=== PATIENT | female | born 1945 | race Caucasian/White ===

== ENCOUNTER 2025-02-24 13:54 | Emergency (ER) | payer MEDICARE, OTHER, SELFPAY ==
--- NOTE | ~2025-02-24 | XR_ITS ---
EXAMINATION: XR chest 2V DATE: 02/24/2025 15:03 INDICATION: 2 weeks of cough. TECHNIQUE: PA and lateral views of the chest were obtained. COMPARISON: None FINDINGS: Hyperexpansion lungs with increased retrosternal clear space consistent with reported history of COPD . Mild biapical pleural-parenchymal scarring. Mild elevation of the left hemidiaphragm with linear op acities at the left lower lung zone and would favor atelectasis over pneumonia. No pleural effusion, pulmonary edema or pneumothorax. Heart size is normal. 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 IMPRESSION: 1. Linear opacities at the left lower lung zone with some elevation of left hemidiaphragm and would f avor atelectasis over pneumonia. 2. Hyperexpansion of the lungs consistent with reported history of COPD. Reviewed, dictated and finalized at location A. IMPRESSION: 1. Linear opacities at the left lower lung zone with some elevation of left hem idiaphragm and would favor atelectasis over pneumonia. 2. Hyperexpansion of the lungs consistent with reported history of COPD.
[2025-02-24 14:09] VITALS: BP 143/67; PULSE 68; RESP 16; TEMP 36.4; O2SAT 96
--- OUTSIDE RECORDS SUMMARY | 2025-02-24 14:10 | XMS_ITS ---
Author Organization [facility] - Address [address] [facility] [place] [address] Care Team Providers Care Pneumatic Hoist Operator Name Role Phone Gareth Gusman Primary Care Provider Unavailabl LUCA Yao Unavailable [phone] REASON FOR VISIT rx Medications Medication SIG (Take, Route, Frequency, Duration) Notes Start Date End Date Status Eliquis 5 MG 1 tablet Orally Twice a day for 90 days Active Encounters Encounter Location Date Provider Diagnosis [address] [address] 01/12/2025 LUCA FERNÁNDEZ Unspecified atrial fibrillation I48.91 Assessments Encounter Date Diagnosis (ICD Code) Assessment Notes Treatment Notes Treatment Clinical Notes Section Notes 01/12/2025 Unspecified atrial fibrillation (ICD-10 - I48.91) Plan Of Treatment Medication Medication Name Sig Start Date Stop Date Notes Eliquis 5 MG 1 tablet Orally Twice a day for 90 days Next Appt Details Provider Name:[facility], 04/21/2025 03:00:00 PM, [address], [address], [place], [address], Progress Notes * Milvia GRIJALVA GDOB:1945 ( 79 yo F)Acc No.[id number]:01/12/2025 Patient: Kari Milvia GASCA :1945 A ge:79 Y S ex:Female Address:[address] [place] [address], [address], [place] [address] * Refills Refill Eliquis Tablet, 5 MG, Orally, 180, 1 tablet, Twice a day, 90 days, Refills=3 * true * Date: Generated for [address]/Андрей/Christiano on: 0 02/24/2025 03:10 PM EDT
--- OUTSIDE RECORDS SUMMARY | 2025-02-24 14:10 | XMS_ITS ---
Author Organization [facility] Address [address] [place] [address] Care Team Providers Care Appraiser Land Name Role Phone MONTOYA, QUYNH Unavailable [phone] REASON FOR VISIT 2 WK RIGHT 4TH INGROWN Medications Medication SIG (Take, Route, Frequency, Duration) Notes Start Date End Date Status Trelegy Ellipta 100-62.5-25 MCG/ACT 1 puff Inhalation Once a day 08/10/2024 Active Rosuvastatin Calcium 10 MG Oral for 90 Days Active Telmisartan 20 MG Oral for 90 Days Active Eliquis 5 MG Oral for 30 Days Active Pantoprazole Sodium 40 MG Oral for 90 Days Active Levothyroxine Sodium 100 MCG Oral for 90 Days Active Acyclovir 400 MG Oral for 90 Days Active Flecainide Acetate 100 MG Oral for 90 Days Active Social History Sex Assigned At : Social History Observation Description Sex Assigned At Female Vital Signs Height 65 in 09/14/2024 Weight 132 lbs 09/14/2024 BMI 21.96 kg/m2 09/14/2024 Encounters Encounter Location Date Provider Diagnosis [facility] [place] [address] 09/14/2024 QUYNH MONTOYA Ingrowing nail L60.0 Assessments Encounter Date Diagnosis (ICD Code) Assessment Notes Treatment Notes Treatment Clinical Notes Section Notes 09/14/2024 Ingrowing nail (ICD-10 - L60.0) 1. Advised patient the hard skin on the bottom will eventually resolve, may apply lotion if desired. 2. Patient told to leave open to the air as much as possible 3. Patient told to allow scabs to come off on their own 4. Expected time to complete healing explained Plan Of Treatment Treatment Notes Assessment Notes Ingrowing nail 1. Advised patient the hard skin on the bottom will eventually resolve, may apply lotion if desired. 2. Patient told to leave open to the air as much as possible 3. Patient told to allow scabs to come off on their own 4. Expected time to complete healing explained Next Appt Details Follow Up: prn, Reason: Progress Notes * Milvia GRIJALVA GDOB:1945 ( 79 yo F)Acc No.[id number]:09/14/2024 Progress Notes Patient: Milvia CAMPO Provider: Sherry Montoya :1945 A ge:79 Y S ex:Female Date:09/14/2024 Phone: Address:[address] [place] [address], [address], [id number] Subjective: * Chief Complaints: * 2 WK RIGHT 4TH INGROWN * Medical History: * Surgical History: * Hospitalization/Major Diagno stic Procedure: * Medications: T akingFlecainide Acetate 100 MG Tablet Oral Acyclovir 400 MG Tablet Oral Levothyroxine Sodium 100 MCG Tablet Oral Telmisartan 20 MG Tablet Oral Rosuvastatin Calcium 10 MG Tablet Oral Pantoprazole Sodium 40 MG Tablet Delayed Release Oral Eliquis 5 MG Tablet Oral Trelegy Ellipta 100-62.5-25 MCG/ACT Aerosol Powder Breath Activated 1 puff Inhalation Once a day Taking Flecainide Acetate 100 MG Tablet Oral Taking Acyclovir 400 MG Tablet Oral Taking Levothyroxine Sodium 100 MCG Tablet Oral Taking Telmisartan 20 MG Tablet Oral Taking Rosuvastatin Calcium 10 MG Tablet Oral Taking Pantoprazole Sodium 40 MG Tablet Delayed Release Oral Taking Eliquis 5 MG Tablet Oral Taking Trelegy Ellipta 100-62.5-25 MCG/ACT Aerosol Powder Breath Activated 1 puff Inhalation Once a day Objective: * Vitals: W t:132lbs, BMI:21.96Index, Ht: 65 in, Ht-cm: 165.1 cm, Wt-k.87 kg. * Examination: V ascular: DORSALIS PEDIS PULSE: 2 /4. POSTERIOR TIBIAL PULSE: 2 /4. CAPILLARY REFILL: i nstantaneous. TEMPERATURE GRADIENT: w ithin normal limits. EDEMA: n one. I ngrown Nail: INPSECTION: t he right 4th toe lateral border of the nail is eschared, no redness or infection. Plantar distal portion of the toe appears to have developed some pooling of blood causing t he skin to harden and get dark. Was painful , no longer.. ? Assessment: * Assessment: 1. Rudy callaway nail - L60.0 (Primary) Plan: * Treatment: * Procedure Codes: * Follow Up: p rn * * Sign off status: Completed true * Provider: Sherry Montoya Date: 11/14/[address]/Андрей/Amiraitting on: 0 02/24/2025 03:10 PM EDT History and Physical Notes * Examination Category Sub-Category Detail Notes Category Not es Ingrown Nail INPSECTION: the right 4th to e lateral border of the nail is eschared, no redness or infection. Plantar distal portion of the toe appears to have developed some pooling of blood causing the skin to harden and get dark. Was painful , no longer. Vascular DORSALIS PEDIS PULSE: 2/4 EDEMA: none CAPILLARY REFILL: instantaneous TEMPERATURE GRADIENT: within normal limi ts POSTERIOR TIBIAL PULSE: 2/4
--- OUTSIDE RECORDS SUMMARY | 2025-02-24 14:11 | XMS_ITS | Clinical Summary ---
Author Organization [facility] Address [address] [place] [address] Care Team Providers Care Paint Coating Machine Operator Name Role Phone Gareth Gusman MD Primary Care Provider [phone] Allergies Active Allergy Reactions Criticality Noted Date Comments Cefazolin 05/28/2024 Cefprozil 05/28/2024 Levofloxacin 05/28/2024 Medications flecainide (TAMBOCOR) 100 MG tablet Take 1 tablet by mouth in the morning and 1 tablet before bedtime. Active rosuvastatin (CRESTOR) 10 MG tablet Take 1 tablet by mouth in the morning. Active telmisartan (MICARDIS) 20 MG tablet Take 1 tablet by mouth in the morning. Active sertraline (ZOLOFT) 50 MG tablet Take 0.5 tablets by mouth in the morning. Active montelukast (SINGULAIR) 10 mg tablet Take 1 tablet by mouth in the morning. Active levothyroxine 100 MCG Oral tablet Take 1 tablet by mouth in the morning. Active pantoprazole (PROTONIX) 40 MG tablet Take 1 tablet by mouth in the morning. Active guaiFENesin (MUCINEX) 600 mg 12 hr tablet Take 1 tablet by mouth in the morning and 1 tablet before bedtime. Active apixaban (ELIQUIS) 5 mg tablet Take 1 tablet by mouth in the morning and 1 tablet before bedtime. Active diazePAM (VALIUM) 2 MG tablet Take 2.5 mg by mouth every 8 (eight) hours as needed for Anxiety. Active Social History Tobacco Use Types Packs/Day Years Used Date Smoking Tobacco: Former Cigarettes Smokeless Tobacco: Never Tobacco Cessation:Counseling Given: Not Answered Alcohol Use Standard Drinks/Week Comments Never 0 (1 standard drink = 0.6 oz pur e alcohol) Comments Unknown Sex and Gender Information Value Date Recorded Sex Assigned at Not on file Legal Sex Female 6:57 PM EDT Gender Identity Not on file Sexual Orientation Not on file Last Filed Vital Signs Vital Sign Reading Time Taken Comments Blood Pressure 126/60 05/28/2024 1:26 PM EDT Pulse 56 05/28/2024 1:26 PM EDT Temperature 37.1 C (98.7 F) 05/28/2024 9:00 AM EDT Respiratory Rate 30 05/28/2024 1:26 PM EDT Oxygen Saturation 96% 05/28/2024 1:26 PM EDT Inhaled Oxygen Concentration - - Weight 59 kg (130 lb) 05/28/2024 9:00 AM EDT Height 165.1 cm (5' 5 ) 05/28/2024 9:00 AM EDT Body Mass Index 21.63 05/28/2024 9:00 AM EDT Plan of Treatment Not on file Insurance [address] [place] [address] MEDICARE [facility] Care Teams Paint Coating Machine Operator Relationship Specialty Start Date End Date Gareth Gusman MD [address] [facility] [place] [address] PCP - General Internal Medicine 05/28/24
--- OUTSIDE RECORDS SUMMARY | 2025-02-24 14:11 | XMS_ITS ---
Author Organization [facility] Address [address] [place], [place] [id number] Care Team Providers Care Event Security Officer Name Role Phone Gareth Gusman MD Primary Care Provider TAMY Robles [phone] Results Component Value Reference Range Notes [email or web address] Reviewed date:02/06/2024 08:56:06 AM Interpretation: Performing Lab: Notes/Report: Encounters Encounter Location Date Provider Diagnosis [facility] [address] [place], [place] [id number] 01/31/2024 TAMY VELA Encounter for screening mammogram for malignant neoplasm of breast Z12.31 Assessments Encounter Date Diagnosis (ICD Code) Assessment Notes Treatment Notes Treatment Clinical Notes Section Notes 01/31/2024 Encounter for screening mammogram for malignant neoplasm of breast (ICD-10 - Z12.31) Plan Of Treatment Next Appt Details Follow Up: 1 Year, Reason: Provider Name:TAMY PEREZ, 03/03/2025 01:30:00 PM, [address] [place] [address] Drive, [address], [place], [place], [id number], Progress Notes * Milvia GRIJALVA GDOB:1945 ( 79 yo F)Acc No.[id number]:01/31/2024 Patient: Milvia CAMPO Provider: Andrea Vela MD :1945 A ge:79 Y S ex:Female Date:01/31/2024 Address:[address], [id number] Pcp:Gareth Gusman MD Subjective: * Chief Complaints: Objective: Assessment: * Assessment: 1. E ncounter for screening mammogram for malignant neoplasm of breast - Z12.31 (Primary) Plan: * Treatment: * Procedure Codes: 7 7067 Mammography, UnderBreast, 20186 BREAST TOMOSYNTHESIS BI * Follow Up: 1 Year * Images: * Sign off status: Completed true * Provider: Andrea Vela MD Date: 0 01/31/[address]/Андрей/Amiraitting on: 0 02/24/2025 03:10 PM EDT
--- OUTSIDE RECORDS SUMMARY | 2025-02-24 14:11 | XMS_ITS ---
Author Organization [facility] Address [address] [place] [address] Care Team Providers Care Safety Compliance Specialist Name Role Phone Gareth Gusman Primary Care Provider Allergies Allergen (clinical drug ingredient) Drug/Non Drug Allergy documented on EMR Reaction Allergy Type Onset Date Status amoxicillin / clavulanate Augmentin Unknown Drug Allergy 02/12/2024 Active cephalexin Cephalexin Unknown Drug Allergy Activ e Levaquin Unknown Drug Allergy Active Reason For Referral Reason tremors Diagnosis 1 Tremor (R25.1) Referral Organization [facility] Referring Provider First Name Gareth Referring Provider Last Name Naseem Referring Provider Speciality Internal M edicine Referred Provider NEUROLOG[facility], [facility] S Referred Provider Specialty Neurology General Notes Dana Shepard 01/12/2025 04:34:25 PM > ref faxed. Referral Priority Routine REASON FOR VISIT involuntarily, intermittent quivering of chin Medications Medication SIG (Take, Route, Frequency, Duration) Notes Start Date End Date Status Ipratropium-Albuterol 0.5-2.5 (3) MG/3ML USE 1 VIAL VIA NEBULIZER EVERY 4 HOURS NEEDED Active Albuterol Sulfate HFA 108 (90 Base) MCG/ACT 2 puffs as needed Inhalation every 4 hrs 01/30/2017 Active Trelegy Ellipta 100-62.5-25 MCG/INH 1 puff Inhalation Once a day Active Flecainide Acetate 100 MG 1 tablet Orall y Twice a day Active Eliquis 2.5 MG as directed Orally T wice a day Active Calcium 1200 4604-9206 MG-UNIT 1 tablet with a meal Orally Once a day Active Protonix 40 MG 1 tablet Orally Once a day 06/23/2019 Active Mucinex 600 MG 1 tablet as needed Orally every 12 hrs Active Vitamin D3 50 MCG (1999 UT) 1 tablet Ora lly Once a day Active Telmisartan 20 MG 1 tablet orally once a day Active Sertraline HCl 50 MG 1 tablet Orally Onc e a day Active Levothyroxine Sodium 100 MCG 1 tablet on an empty stomach every morning Orally Once a day Active Rosuvastatin Calcium 10 MG 1 tablet Oral ly Once a day Active Acyclovir 400 MG 1 tablet Orally Twic e a day Active Social History Tobacco Use: Social History Observation Description Date Details (start date - stop date) Never Smoker NA - NA TOBACCO USE? Question Answer Notes Are you an other tobacco user? 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 ; Benign essential hypertension I10 ; Paroxysmal atrial fibrillation I48.0 ; Mixed hyperlipidemia E78.2 ; Tremor R25.1 ; Chronic obstructive pulmonary disease, unspecified COPD type J44.9 ; 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 Stable. Continue with current management. 01/12/2025 Benign essential hypertension (ICD-10 - I10) 2 g sodium diet suggested. Goal blood pressure 120/80. Avoid hypotension. Complications of uncontrolled hypertension discussed with patient to include CKD, CVA, CAD. Advised to take medications regularly. Monitor blood pressure at home. 01/12/2025 Paroxysmal atrial fibrillation (ICD-10 - I48.0) Well-controlled. Stable. Continue with current management. 01/12/2025 Mixed hyperlipidemia (ICD-10 - E78.2) You can lower your LDL, or bad, cholesterol by avoiding red meat, butter, fried foods, cheese, and other foods that have a lot of saturated fat. You can lower triglycerides by avoiding sugary foods, fried foods, and excess alcohol. If you have excess weight, it can help to lose weight. Your doctor or nurse can help you do this in a healthy way. Try to get regular physical activity. Even gentle forms of exercise, like walking, are good for your health. Even if these steps don't change your cholesterol very much, they can improve your health in many other ways. 01/12/2025 Tremor (ICD-10 - R25.1) 01/12/2025 Chronic obstructive pulmonary disease, unspecified COPD type (ICD-10 - J44.9) Well-controlled. Stable. Continue with current management. 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 Stable. Continue with current management. 01/12/2025 Acquired hypothyroidism (ICD-10 - E03.9) Well-controlled. Stable. Continue with current management. 01/12/2025 Depressive disorder in remission (ICD-10 - F32.A) No SI or HI symptoms. If you ever feel like you might hurt yourself or someone else helps available. In the [place] contact [employer] suicide and crisis [employer]. To speak to someone call or text [employer]. To talk to someone online go to www.[employer].o rg/chat. Call us urgently. Or call an ambulance. Or go to the nearest emergency room. Counseling may be helpful. Continue to take your medication. Limit access to items that may cause harm such as guns or knives. 01/12/2025 BMI 20.0-20.9, adult (ICD-10 - Z68.20) 01/12/2025 Other Diet myths and facts material was printed Plan Of Treatment Medication Medication Name Sig Start Date Stop Date Notes Ipratropium-Albuterol 0.5-2. 5 (3) MG/3ML USE 1 VIAL VIA NEBULIZER EVERY 4 HOURS NEEDED Albuterol Sulfate HFA 108 (9 0 Base) MCG/ACT 2 puffs as needed Inhalation every 4 hrs 01/30/2017 Trelegy Ellipta 100-62.5-25 MCG/INH 1 puff Inhalation Once a day Flecainide Acetate 100 MG 1 tablet Orally Twice a day Eliquis 2.5 MG as directed Orally T wice a day Calcium 1200 9343-1074 MG-UNIT 1 tablet with a meal Orally Once a day Protonix 40 MG 1 tablet Orally Once a day 06/23/2019 Mucinex 600 MG 1 tablet as needed O rally every 12 hrs Vitamin D3 50 MCG (2000 UT) 1 tablet Orally Once a day Telmisartan 20 MG 1 tablet orally once a day Sertraline HCl 50 MG 1 tablet Orally Once a day Levothyroxine Sodium 100 MCG 1 tablet on an empty stomach every morning Orally Once a day Rosuvastatin Calcium 10 MG 1 tablet Orally Once a day Acyclovir 400 MG 1 tablet Orally Twice a day Treatment Notes Assessment Notes Benign essential hypertension 2 g sodium diet suggested. Goal blood pressure 120/80. Avoid hypotension. Complications of uncontrolled hypertension discussed with patient to include CKD, CVA, CAD. Advised to take medications regularly. Monitor blood pressure at home. Paroxysmal atrial fibrillation Well-cont rolled. Stable. Continue with current management. Mixed hyperlipidemia You can lower your LDL, or bad, cholesterol by avoiding red meat, butter, fried foods, cheese, and other foods that have a lot of saturated fat. You can lower triglycerides by avoiding sugary foods, fried foods, and excess alcohol. If you have excess weight, it can help to lose weight. Your doctor or nurse can help you do this in a healthy way. Try to get regular physical activity. Even gentle forms of exercise, like walking, are good for your health. Even if these steps don't change your cholesterol very much, they can improve your health in many other ways. Chronic obstructive pulmonar y disease, unspecified COPD type Well-controlled. Stable. Continue with current management. Chronic mucocutaneous infect ion due to herpes simplex virus (HSV) Well-controlled. Stable. Continue with current management. Acquired hypothyroidism Well-controlled. Stable. Continue with current management. Depressive disorder in remission No SI o r HI symptoms. If you ever feel like you might hurt yourself or someone else helps available. In the [place] contact [employer] suicide and crisis [employer]. To speak to someone call or text [employer]. To talk to someone online go to www.[employer].org/chat. Call us urgently. Or call an ambulance. Or go to the nearest emergency room. Counseling may be helpful. Continue to take your medication. Limit access to items that may cause harm such as guns or knives. Other Diet myths and facts material was printed Pending Test Test Name Order Date CBC WITH PLT 01/12/2025 MAGNESIUM 01/12/2025 TSH 01/12/2025 COMPREHENSIVE METABOLIC PANEL (CMP) 12/20 LIPID PANEL 01/12/2025 Referrals Referral Date Details 01/12/2025 01/12/2025, tremors, [facility] Next Appt Details Follow Up: prn, Reason: Provider Name:Anil Vargas, 03/05/2025 01:40:00 PM, [address] [place], [address], Progress Notes * Milvia GRIJALVA GDOB:1945 ( 79 yo F)Acc No.[id number]:01/12/2025 Progress Notes Patient: Milvia CAMPO Provider: Chandan Gusman MD :1945 A ge:79 Y S ex:Female Date:01/12/2025 Address:[address] [place] [address], [address], [phone] Subjective: * Chief Complaints: * I nvoluntarily, intermittent quivering of chin * HPI: F FUP VISIT: Patient with involuntary quivering tremors of the lower lip and chin. T his is intermittent progressive. T he patient has no gait abnormality. N o tremors. N o rigidity no cogwheeling. P ositive family history of Parkinson's disease 2 siblings. N o falls. C oncerned about Parkinson's disease. M ost likely has some form of movement disorder. N o evidence for any titubation. R outine labs to be checked to include thyroid. W ill refer to neurology. N o indication for treatment at this point. Her past medical history significant for COPD, paroxysmal AF. C OPD, hypothyroidism HLD depression HTN. S he has an upcoming appointment next month. R outine labs to be ordered will add TSH and electrolytes. H er symptoms are not affecting her ADLs and IADLs. N ot affecting her function. * ROS: R OS neg except as noted in HPI. * Medical History: * Surgical History: H YSTERECTOMY 1975TONSILECTOMY 1958HEMORRHOID 2012FACE LIFT NECK LIFT * Hospitalization/Major Diagno stic Procedure: M EDICATIONS CHANGES 04/2018AFIB 10/2017COPD, PNEUMOTHORAX 11/2020 * Family History: F ather: . M other: , diagnosed with Unspecified heart disease. S iblings: diagnosed with Other malignant neoplasm of unspecified site. 7 brother(s) , 2 sister(s) . 1 son(s) , 1 daughter(s) . . BREAST CANCER- SISTER. * Social History: T obacco Use: T OBACCO USE? A re you a tobacco user? N o A re you an other tobacco user? N o Tobacco Control (Standard) T obacco use: N onsmomaryam N ON SMOKER. * Medications: T akingMucinex 600 MG Tablet Extended Release 12 Hour 1 tablet as needed Orally every 12 hrs Vitamin D3 50 MCG (2000 UT) Tablet 1 tablet Orally Once a day Calcium 1200 1338-1650 MG-UNIT Tablet Chewable 1 tablet with a meal Orally Once a day Albuterol Sulfate HFA 108 (90 Base) MCG/ACT Aerosol Solution 2 puffs as needed Inhalation every 4 hrs Ipratropium-Albuterol 0.5-2.5 (3) MG/3ML Solution USE 1 VIAL VIA NEBULIZER EVERY 4 HOURS NEEDED Flecainide Acetate 100 MG Tablet 1 tablet Orally Twice a day Eliquis 2.5 MG Tablet as directed Orally Twice a day Trelegy Ellipta 100-62.5-25 MCG/INH Aerosol Powder Breath Activated 1 puff Inhalation Once a day Acyclovir 400 MG Tablet 1 tablet Orally Twice a day Levothyroxine Sodium 100 MCG Tablet 1 tablet on an empty stomach every morning Orally Once a day Rosuvastatin Calcium 10 MG Tablet 1 tablet Orally Once a day Sertraline HCl 50 MG Tablet 1 tablet Orally Once a day Telmisartan 20 MG Tablet 1 tablet orally once a day Protonix 40 MG Tablet Delayed Release 1 tablet Orally Once a day Medication List reviewed and reconciled with the patientTaking Mucinex 600 MG Tablet Extended Release 12 Hour 1 tablet as needed Orally every 12 hrs Taking Vitamin D3 50 MCG (2000 UT) Tablet 1 tablet Orally Once a day Taking Calcium 1200 2520-1538 MG-UNIT Tablet Chewable 1 tablet with a meal Orally Once a day Taking Albuterol Sulfate HFA 108 (90 Base) MCG/ACT Aerosol Solution 2 puffs as needed Inhalation every 4 hrs Taking Ipratropium-Albuterol 0.5-2.5 (3) MG/3ML Solution USE 1 VIAL VIA NEBULIZER EVERY 4 HOURS NEEDED Taking Flecainide Acetate 100 MG Tablet 1 tablet Orally Twice a day Taking Eliquis 2.5 MG Tablet as directed Orally Twice a day Taking Trelegy Ellipta 100-62.5-25 MCG/INH Aerosol Powder Breath Activated 1 puff Inhalation Once a day Taking Acyclovir 400 MG Tablet 1 tablet Orally Twice a day Taking Levothyroxine Sodium 100 MCG Tablet 1 tablet on an empty stomach every morning Orally Once a day Taking Rosuvastatin Calcium 10 MG Tablet 1 tablet Orally Once a day Taking Sertraline HCl 50 MG Tablet 1 tablet Orally Once a day Taking Telmisartan 20 MG Tablet 1 tablet orally once a day Taking Protonix 40 MG Tablet Delayed Release 1 tablet Orally Once a day Medication List reviewed and reconciled with the patient * Allergies: L evaquinCephalexinAugmentin: Allergy - Onset Date 02/12/2024no[Allergies Verified] Objective: * Vitals: T emp:97.6F, HR:68/min, BP:112/70mm Hg, Ht: 66 in, Wt:124lbs, BMI:20.01Index, RR:17/min, Ht-cm: 167.64 cm, Wt-k.25 kg. MG. * Examination: G eneral Examination: GENERAL APPEARANCE: i n no acute distress, well developed, well nourished. HEAD: n ormocephalic, atraumatic. EYES: p upils equal, round, reactive to light and accommodation. EARS: n ormal. ORAL CAVITY: m ucosa moist. THROAT: c lear. NECK/THYROID: n boubacar supple, full range of motion, no cervical lymphadenopathy. SKIN: n o suspicious lesions, warm and dry. HEART: n o murmurs, regular rate and rhythm, S1, S2 normal.? LUNGS: c lear to auscultation bilaterally. ABDOMEN: n ormal, bowel sounds present, soft, nontender, nondistended. EXTREMITIES: n o clubbing, cyanosis, or edema. NEUROLOGIC: n onfocal, motor strength normal upper and lower extremities,sensory exam intact No rigidity no cogwheeling gait is normal. . F ine tremors with noted on her lower lip and chin. Assessment: * Assessment: 1. B enign essential hypertension - I10 (Primary) 2 . C OPD (chronic obstructive pulmonary disease) with chronic bronchitis - J44.9 3 . P aroxysmal atrial fibrillation - I48.0 4 . M ixed hyperlipidemia - E78.2 5 . T remor - R25.1 6 . C hronic obstructive pulmonary disease, unspecified COPD type - J44.9 7 . C hronic mucocutaneous infection due to herpes simplex virus (HSV) - B00.9 8 . A cquired hypothyroidism - E03.9 9 . D epressive disorder in remission - F32.A 1 0. B IN 20.0-20.9, adult - Z68.20 ? Plan: * Treatment: 2. C OPD (chronic obstructive pulmonary disease) with chronic bronchitis Continue Ipratropium-Albuterol Solution, 0.5-2.5 (3) MG/3ML, USE 1 VIAL VIA NEBULIZER EVERY 4 HOURS NEEDED. L AB: CBC WITH PLT L AB: MAGNESIUM L AB: TSH L AB: COMPREHENSIVE METABOLIC PANEL (CMP) L AB: LIPID PANEL Clinical Notes: Well-controlled. Stable. Continue with current management. 3. P aroxysmal atrial fibrillation Continue Flecainide Acetate Tablet, 100 MG, 1 tablet, Orally, Twice a day; C ontinue Eliquis Tablet, 2.5 MG, as directed, Orally, Twice a day. L AB: CBC WITH PLT L AB: MAGNESIUM L AB: TSH L AB: COMPREHENSIVE METABOLIC PANEL (CMP) L AB: LIPID PANEL Notes: Well-controlled. Stable. Continue with current management. 4. M ixed hyperlipidemia Continue Rosuvastatin Calcium Tablet, 10 MG, 1 tablet, Orally, Once a day. L AB: CBC WITH PLT L AB: MAGNESIUM L AB: TSH L AB: COMPREHENSIVE METABOLIC PANEL (CMP) L AB: LIPID PANEL Notes: You can lower your LDL, or bad, cholesterol by avoiding red meat, butter, fried foods, cheese, and other foods that have a lot of saturated fat. You can lower triglycerides by avoiding sugary foods, fried foods, and excess alcohol. If you have excess weight, it can help to lose weight. Your doctor or nurse can help you do this in a healthy way. Try to get regular physical activity. Even gentle forms of exercise, like walking, are good for your health. Even if these steps don't change your cholesterol very much, they can improve your health in many other ways. 5. T remor L AB: CBC WITH PLT L AB: MAGNESIUM L AB: TSH L AB: COMPREHENSIVE METABOLIC PANEL (CMP) L AB: LIPID PANEL Referral To:[facility] Neurology Reason:tremors 6. C hronic obstructive pulmonary disease, unspecified COPD type Continue Trelegy Ellipta Aerosol Powder Breath Activated, 100-62.5-25 MCG/INH, 1 puff, Inhalation, Once a day. L AB: CBC WITH PLT L AB: MAGNESIUM L AB: TSH L AB: COMPREHENSIVE METABOLIC PANEL (CMP) L AB: LIPID PANEL Notes: Well-controlled. Stable. Continue with current management. 7. C hronic mucocutaneous infection due to herpes simplex virus (HSV) Continue Acyclovir Tablet, 400 MG, 1 tablet, Orally, Twice a day. L AB: CBC WITH PLT L AB: MAGNESIUM L AB: TSH L AB: COMPREHENSIVE METABOLIC PANEL (CMP) L AB: LIPID PANEL Notes: Well-controlled. Stable. Continue with current management. 8. A cquired hypothyroidism Continue Levothyroxine Sodium Tablet, 100 MCG, 1 tablet on an empty stomach every morning, Orally, Once a day. L AB: CBC WITH PLT L AB: MAGNESIUM L AB: TSH L AB: COMPREHENSIVE METABOLIC PANEL (CMP) L AB: LIPID PANEL Notes: Well-controlled. Stable. Continue with current management. 9. D epressive disorder in remission Continue Sertraline HCl Tablet, 50 MG, 1 tablet, Orally, Once a day. L AB: CBC WITH PLT L AB: MAGNESIUM L AB: TSH L AB: COMPREHENSIVE METABOLIC PANEL (CMP) L AB: LIPID PANEL Notes: No SI or HI symptoms. If you ever feel like you might hurt yourself or someone else helps available. In the [place] contact [employer] suicide and crisis [employer]. To speak to someone call or text [employer]. To talk to someone online go to www.[employer].org/chat. Call us urgently. Or call an ambulance. Or go to the nearest emergency room. Counseling may be helpful. Continue to take your medication. Limit access to items that may cause harm such as guns or knives. 10. O thers Continue Mucinex Tablet Extended Release 12 Hour, 600 MG, 1 tablet as needed, Orally, every 12 hrs;?Continue Vitamin D3 Tablet, 50 MCG (2000 UT), 1 tablet, Orally, Once a day; C ontinue Calcium 1200 Tablet Chewable, 8314-5099 MG-UNIT, 1 tablet with a meal, Orally, Once a day; C ontinue Albuterol Sulfate HFA Aerosol Solution, 108 (90 Base) MCG/ACT, 2 puffs as needed, Inhalation, every 4 hrs; C ontinue Protonix Tablet Delayed Release, 40 MG, 1 tablet, Orally, Once a day. ? Notes: Diet myths and facts material was printed * Procedure Codes: 3 074F SYST BP LT 130 MM [id number] DIAST BP < 80 MM [id number] BP SYSTOLIC < 140 DIASTOLIC < [id number] MOST RECENT SYSTOLIC BP < 140MM [id number] MOST RECENT DIASTOLIC BP < 90MM [id number] PT CUR STATIN USR/RCVD ORD STATN [id number] DOC PT ON STATN MED/DOC VALID [id number] STATIN THERAPY/CURRENTLY [id number] MED LIST DOCD IN [id number] RVW MEDS BY RX/DR IN [id number] BODY MASS INDEX DOCD * Preventive Medicine: AAP Screening: F ALLS: Screening for Fall Risk Assessment Performed: y es Date: 0 01/12/2025 Have you had two or more falls in the past year? N o Have you had any falls with injury in the past year? N o Counseling: F all Risk Screening Fall Risk Assessment: N o falls in the past year C are goal follow-up plan: BMI management provided N o S MOKING: Patient is a nonsmoker 0 01/12/2025 * Follow Up: p rn * Images: * . This office note may have dictated by [employer]el[employer] software. Sign off status: Completed true * Provider: Chandan Gusman MD Date: 0 01/12/2025 Generated for Jayloni yenifer/Farameshg/eTransmitting on: 0 02/24/2025 03:11 PM EDT History and Physical Notes * HPI (History of Present Illness) Category Sub-Category Detail Notes Category Not es FFUP VISIT Patient with involuntary quivering tremors of the lower lip and chin. This is intermittent progressive. The patient has no gait abnormality. No tremors. No rigidity no cogwheeling. Positive family history of Parkinson's disease 2 siblings. No falls. Concerned about Parkinson's disease. Most likely has some form of movement disorder. No evidence for any titubation. Routine labs to be checked to include thyroid. Will refer to neurology. No indication for treatment at this point. Her past medical history significant for COPD, paroxysmal AF. COPD, hypothyroidism HLD depression HTN. She has an upcoming appointment next month. Routine labs to be ordered will add TSH and electrolytes. Her symptoms are not affecting her ADLs and IADLs. Not affecting her function. Examination Category Sub-Category Detail Notes Category Not es General Examination GENERAL APPEARANCE: in no ac [place] distress, well developed, well nourished Fine tremors with noted on her lower lip and chin. HEAD: normocephalic, atrau matic EYES: pupils equal, round, reactive to light and accommodation EARS: normal THROAT: clear NECK/THYROID: neck supple, full ra nge of motion, no cervical lymphadenopathy HEART: no murmurs, regular rate and rhythm, S1, S2 normal LUNGS: clear to auscultatio n bilaterally ABDOMEN: normal, bowel sounds present, soft, nontender, nondistended NEUROLOGIC: nonfocal, motor stre ngth normal upper and lower extremities, sensory exam intact No rigidity no cogwheeling gait is normal. SKIN: no suspicious lesion s, warm and dry EXTREMITIES: no clubbing, cyanosi s, or edema ORAL CAVITY: mucosa moist Consultation Request Notes Referral Date Referring Provider Referred Provider Not es 01/12/2025 Gareth Gusman [facility] trem ors
--- OUTSIDE RECORDS SUMMARY | 2025-02-24 14:11 | XMS_ITS ---
Author Organization [facility] Address [address] [place] [address] Care Team Providers Care Switch Engineer Name Role Phone Gareth Gusman Primary Care Provider Unavailabl LUCA Yao Unavailable [phone] Medications Medication SIG (Take, Route, Frequency, Duration) Notes Start Date End Date Status Eliquis 5 MG 1 tablet Orally Twice a day for 90 days Active Encounters Encounter Location Date Provider Diagnosis [facility] [address] [place] [address] 01/06/2025 LUCA FERNÁNDEZ Unspecified atrial fibrillation I48.91 Assessments Encounter Date Diagnosis (ICD Code) Assessment Notes Treatment Notes Treatment Clinical Notes Section Notes 01/06/2025 Unspecified atrial fibrillation (ICD-10 - I48.91) Plan Of Treatment Medication Medication Name Sig Start Date Stop Date Notes Eliquis 5 MG 1 tablet Orally Twice a day for 90 days Next Appt Details Provider Name:LUCA CARD[place] [facility] [place] 03:00:00 PM, [address], [address], [place], [address], Progress Notes * Milvia GRIJALVA GDOB:1945 ( 79 yo F)Acc No.[id number]:01/06/2025 Patient: Kari GASCAMilvia Ritesh :1945 A ge:79 Y S ex:Female Address:[address], [address], [place] [address] * Refills Refill Eliquis Tablet, 5 MG, Orally, 180, 1 tablet, Twice a day, 90 days, Refills=3 * true * Date: Generated for [address]/Андрей/Christiano on: 0 02/24/2025 03:10 PM EDT
--- OUTSIDE RECORDS SUMMARY | 2025-02-24 14:11 | XMS_ITS ---
Author Organization [facility] Address [address] [place] [address] Care Team Providers Care Combined Rail Operator Name Role Phone Gareth Gusman Primary Care Provider REASON FOR VISIT flu done 07/28/2024 Encounters Encounter Location Date Provider Diagnosis [facility] [place] [address] [place] [address] 01/12/2025 Gareth Gusman Plan Of Treatment Next Appt Details Provider Name:Anil Vargas, 03/05/2025 01:40:00 PM, [address], [address], Progress Notes * MARVINMilvia Mendez GDOB:1945 ( 79 yo F)Acc No.[id number]:01/12/2025 Patient: Milvia CAMPO :1945 A ge:79 Y S ex:Female Address:[address] [place] [address], [address], [place], [address] * true * Date: Generated for Jayloni yenifer/Nataliog/eTransmitting on: 0 02/24/2025 03:11 PM EDT
--- OUTSIDE RECORDS SUMMARY | 2025-02-24 14:11 | XMS_ITS ---
Author Organization [facility] Address [address] [place] [address] Care Team Providers Care Molecular Biology Director Name Role Phone Gareth Gusman Primary Care Provider LUCA Butler [phone] Allergies Allergen (clinical drug ingredient) Drug/Non Drug [...] MG 1 tablet Orall y every 12 hrs for 30 days Active Encounters Encounter Location Date Provider Diagnosis [facility] [address] [place] [address] 12/09/2024 LUCA ESCOBEDO Primary hypertension I10 ; [...] MG 1 tablet Orall y every 12 hrs for 30 days Treatment Notes Assessment Notes Paroxysmal A-fib Cont flecainide and eliquis. In NSR today. Precordial chest pain Negative cath Next Appt Details Provider Name:LUCA CARDONA [facility], 04/21/2025 03:00:00 PM, [address], [place], [address], Progress Notes * Milvia GRIJALVA GDOB:1945 ( 80 yo F)Acc No.[id number]:12/09/2024 Progress Notes Patient: Milvia CAMPO Provider: Urban Escobedo MD, [facility] :1945 A ge:79 Y S ex:Female Date:12/09/2024 Address:[address] [place] [address], [address], [id number] Pcp:Gareth Gusman Subjective: * Chief Complaints: * [...] aroxysmal A-fib - I48.0 6 . B NM 21.0-21.9, adult - Z68.21 7 . L [...] Electronic signature of JUST IN Samantha ESCOBEDO, [id number] on 02/24/2025 at 03:11 PM EDT Sign off status: Pending * Provider: Urban Escobedo MD, [facility] Date: 0 12/09/[address]/Андрей/Christiano on: 0 02/24/2025 03:11 PM EDT
--- OUTSIDE RECORDS SUMMARY | 2025-02-24 14:12 | XMS_ITS ---
Author Organization [facility] Address [address] [place] [address] Care Team Providers Care Technology Internship Name Role Phone QUYNH MONTOYA Unavailable [phone] REASON FOR VISIT 2 WK RIGHT 4TH INGROWN Social History Sex Assigned At : Social History Observation Description Sex Assigned At Female Encounters Encounter Location Date Provider Diagnosis [facility] [address] [place] [address] 09/07/2024 QUYNH MONTOYA Plan Of Treatment No Information Progress Notes * Milvia GRIJALVA GDOB:1945 ( 80 yo F)Acc No.[id number]:09/07/2024 Progress Notes Patient: Milvia CAMPO Provider: Sherry Montoya :1945 A ge:79 Y S ex:Female Date:09/07/2024 Phone: Address:[address] [place] [address], [address], [place], [id number] Subjective: * Chief Complaints: * 1 . 2 WK RIGHT 4TH INGROWN. * Medical History: Objective: * Vitals: Assessment: Plan: * Treatment: * * Electronic signature of KIERRA MONTOYA DPM on 02/24/2025 at 03:12 PM EDT Sign off status: Pending * Provider: Sherry Montoya Date: 11/07/[address]/Андрей/Christiano on: 0 02/24/2025 03:12 PM EDT
--- OUTSIDE RECORDS SUMMARY | 2025-02-24 14:12 | XMS_ITS | Clinical Summary ---
Author Organization [facility] Address [address] [place] [phone] Phone Care Team Providers Care Film Critic Name Role Phone Unavailable Primary Care Provider Unavailabl e Allergies Active Allergy Reactions Criticality Noted Date Comments Levofloxacin Other (see Comments) 05/10/2019 Pet[place]iae Medications albuterol (PROVENTIL, VENTOLIN) (2.5 MG/3ML) 0.083% Nebulizer Soln 2.5 mg by Nebulization route. Activ e albuterol 108 (90 Base) MCG/ACT Aerosol Solution take 2 Puffs by inhalation every 4 hours as needed. Active acyclovir (ZOVIRAX) 400 MG Tablet 04/10/20 19 Active cetirizine (ZYRTEC) 10 MG Tablet TAKE 1 TABLET BY MOUTH ONCE DAILY. 2 04/27/20 19 Active diclofenac sodium (VOLTAREN) 1 % Gel APPLY 2-4 GRAMS TO AFFECTED AREA 4 TIMES DAILY DIRECTED BY PHYSICIAN. 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 Active Active Problems No known active problems Social History Tobacco Use Types Packs/Day Years Used Date Smoking Tobacco: Former Cigarettes Q uit: 10/21/2003 Smokeless Tobacco: Never Comments No Sex and Gender Information Value Date Recorded Sex Assigned at Not on file Legal Sex Female 2:11 PM CDT Gender Identity Not on file Sexual Orientation Not on file Last Filed Vital Signs Vital Sign Reading Time Taken Comments Blood Pressure 120/54 05/10/2019 2:45 PM CDT Pulse 65 05/10/2019 2:45 PM CDT Temperature 36.7 C (98 F) 05/10/2019 2:45 PM CDT Respiratory Rate - - Oxygen Saturation 95% 05/10/2019 2:45 PM CDT Inhaled Oxygen Concentration - - Weight 62.6 kg (138 lb) 05/10/2019 2:45 PM CDT Height 165.1 cm (5' 5 ) 05/10/2019 2:45 PM CDT Body Mass Index 22.96 05/10/2019 2:45 PM CDT Plan of Treatment Health Maintenance Due Date Last Done Comments DEXA Bone Density 1945 Hepatitis C Virus (HCV) Screening 1945 TdaP Immunization 1945 Pneumococcal Immunization (5 0+ years) (1 of 1 - PCV) 01/18/1994 Zoster Immunization (1 of 2) 01/18/1994 Respiratory Syncytial Virus (RSV) Immunization (Adult) (1 - 1-dose 75+ series) 01/18/2019 Influenza Immunization (#1) 2024 SARS-COV-2 Immunization (1 - 2023-25 season) 2024 Hepatitis B Immunization Aged Out No longer eligible based on patient's age to complete this topic Meningococcal Immunization (ACWY) Aged Out No longer eligible based on patient's age to complete this topic Rotavirus Immunization Aged Out No lo nger eligible based on patient's age to complete this topic Insurance MEDICARE
--- OUTSIDE RECORDS SUMMARY | 2025-02-24 14:12 | XMS_ITS ---
Author Organization [facility] Address [address] [place], [place] [id number] Care Team Providers Care Horizontal Boring Mill Set Up Operator Name Role Phone Gareth Gusman MD Primary Care Provider TAMY Robles [phone] Encounters Encounter Location Date Provider Diagnosis [facility] [address] [place], [place] [id number] 02/05/2025 TAMY VELA Plan Of Treatment Next Appt Details Provider Name:TAMY PEREZ, 03/03/2025 01:30:00 PM, [address], [address], [place], [place], [id number], Progress Notes * Milvia GRIJALVA GDOB:1945 ( 80 yo F)Acc No.[id number]:02/05/2025 Patient: Milvia CAMPO Provider: Andrea Vela MD :1945 A ge:80 Y S ex:Female Date:02/05/2025 Address:[address] [place] [address], [place], [id number] Pcp:Gareth Gusman MD Subjective: * Chief Complaints: Objective: Assessment: Plan: * Treatment: * Images: * Electronic signature of NANDO VELA MD on 02/24/2025 at 03:12 PM EDT Sign off status: Pending * Provider: Andrea Vela MD Date: 02/05/2025 Generated for Jayloni yenifer/Андрей/eTransmitting on: 0 02/24/2025 03:12 PM EDT
--- OUTSIDE RECORDS SUMMARY | 2025-02-24 14:12 | XMS_ITS | Patient Health Record ---
Author Organization [facility] Address [address] [place] [address] Care Team Providers Care Supervisor Particleboard Name Role Phone QUYNH LUCIA Unavailable [phone] Allergies Allergen (clinical drug ingredient) Drug/Non Drug Allergy documented on EMR Reaction Allergy Type Onset Date Status amoxicillin / clavulanate augmentin (uncoded) severe eye itchingand redness Allergy Active cefprozil cefprozil (uncoded) mima tightnes and wheezing Allergy Active levaquin (uncoded) pettechia Allergy A ctive Reason For Referral No Information Medications Medication SIG (Take, Route, Frequency, Duration) [...] Description Sex Assigned At Female Vital Signs Heart Rate 58 /min 08/24/2024 Blood pressure diastolic 78 mm Hg 08/24/2024 Height 65 in 09/14/2024 Blood pressure systolic 134 mm Hg 08/24/2024 Weight 132 lbs 09/14/2024 BMI 21.96 kg/m2 09/14/2024 Encounters Encounter Location Date Provider Diagnosis [facility] [address] [place] [address] 08/10/2024 QUYNH LUCIA Ingrowing nail L60.0 [facility] [address] [place] [address] 08/24/2024 QUYNH LUCIA Ingrowing nail L60.0 [facility] [address] [place] [address] 09/14/2024 QUYNH LUCIA Ingrowing nail L60.0 Assessments Encounter Date Diagnosis (ICD Code) Assessment Notes Treatment Notes Treatment Clinical Notes Section Notes 08/10/2024 Ingrowing nail (ICD-10 - L60.0) We discussed the findings and treatment options. Patient wants to proceed with surgical correction. We will contact her Pulpit Operator ( Jamie Escobedo) to determine his requirement re: Laz) Will schedule after that 08/24/2024 Ingrowing nail (ICD-10 - L60.0) We discussed the findings and treatment options. Patient wants to proceed with surgical correction. See operative report 09/14/2024 Ingrowing nail (ICD-10 - L60.0) 1. Advised patient the hard skin on the bottom will eventually resolve, may apply lotion if desired. 2. Patient told to leave open to the air as much as possible 3. Patient told to allow scabs to come off on their own 4. Expected time to complete healing explained Plan Of Treatment No Information Insurance Providers Payer Name Payer Address Payer Phone Subscriber Number Group Number Insured Name Patient Relationship to Insured Coverage Start Date Coverage End Date [employer] [facility] [place] [facility] [address] [place] [phone] [id number] MarvinrMilvia Self - patient is the insured Medical (General) History Medical History History ICD Code abdominal aortic aneurysm: No acid reflux: Yes acute coronary syndrome: Yes AIDS/HIV: No allergies, food: Yes allergies, seasonal: Yes anemia: No angina: No anxiety: Yes arthritis: Yes asthma: No atrial fibrillation: Yes attention deficit disorder: No autism: No autoimmune disorder: No back pain: Yes bipolar disorder: No bleeding problems: Yes bowel disorders: Yes breast lump: No cancer, breast: No cancer, colon: No cancer, leukemia: No cancer, lymphoma: No cancer, melanoma: Yes cardiac arrhythmia: Yes cataracts: No cerebral palsy: No chronic obstructive pulmonary disease (C OPD): Yes cirrhosis: No congestive heart failure: No coronary artery disease: No Crohns SI: No deep vein thrombosis: No depression: No diabetes, type II: No Down's syndrome: No emphysema: No end-stage renal disease (ERSD): No epilepsy: No fibromyalgia: No gastroesophageal reflux disease (GERD): Yes glaucoma: No gout: No hearing loss: Yes heart murmur: No hepatitis C: No hypertension: No lupus: No migraine headaches: No mitral valve prolapse: No multiple sclerosis: No neuropathy: No prostate nodule: No psoriasis: No renal failure: No restless leg syndrome: No seizures: No shingles: No sleep apnea: No stroke: No thyroid nodule: Yes ulcerative colitis: No Surgical History Surgery Date(Month/Year) thyroidectomy hysterectomy lung sx 2021 facelift
--- OUTSIDE RECORDS SUMMARY | 2025-02-24 14:12 | XMS_ITS | Patient Health Record ---
Author Organization [facility] Address [address] [facility] [place] [address] Care Team Providers Care Insurance Adjuster Name Role Phone Gareth Gusman Primary Care Provider Allergies Allergen (clinical drug ingredient) Drug/Non Drug Allergy documented on EMR Reaction Allergy Type Onset Date Status amoxicillin / clavulanate Augmentin Unknown Drug Allergy 02/12/2024 Active cephalexin Cephalexin Unknown Drug Allergy Activ e Levaquin Unknown Drug Allergy Active Reason For Referral Reason tremors Diagnosis 1 Tremor (R25.1) Referral Organization [facility] Referring Provider First Name Gareth Referring Provider Last Name Naseem Referring Provider Speciality Internal M edicine Referred Provider NEUROLOGY, ASSOCIATE S Referred Provider Specialty Neurology General Notes Dana Shepard 01/12/2025 04:34:25 PM > ref faxed. Referral Priority Routine Medications Medication SIG (Take, Route, Frequency, Duration) Notes Start Date End Date Status Rosuvastatin Calcium 10 MG 1 tablet Oral ly Once a day Active Trelegy Ellipta 100-62.5-25 MCG/INH 1 puff Inhalation Once a day Active Acyclovir 400 MG 1 tablet Orally Twic e a day Active Flecainide Acetate 100 MG 1 tablet Orall y Twice a day Active Eliquis 2.5 MG as directed Orally T wice a day Active Levothyroxine Sodium 88 MCG 1 tablet on an empty stomach every morning Orally Once a day for 90 days Active Ipratropium-Albuterol 0.5-2.5 (3) MG/3ML USE 1 VIAL VIA NEBULIZER EVERY 4 HOURS NEEDED Active Calcium 1200 5675-1884 MG-UNIT 1 tablet with a meal Orally Once a day Active Protonix 40 MG 1 tablet Orally Once a day 06/23/2019 Active Albuterol Sulfate HFA 108 (90 Base) MCG/ACT 2 puffs as needed Inhalation every 4 hrs 01/30/2017 Active Mucinex 600 MG 1 tablet as needed Orally every 12 hrs Active Sertraline HCl 50 MG 1 tablet Orally Onc e a day Active Vitamin D3 50 MCG (2000 UT) 1 tablet Ora lly Once a day Active Telmisartan 20 MG 1 tablet orally once a day Active Immunizations Vaccine Route Administration Date Status Comme nts High dose flu vaccine 2018 IM Intramuscular 07/16/2019 Adm inistered Influenza, high dose seasonal IM Intramuscular 07/25/2017 Administered Pneumococcal 20-valent Conjugate IM Intramuscular 03/12/2023 Administered Prevnar 13 IM Intramuscular 03/11/2020 Administered Social History Tobacco Use: Social History Observation Description Date Details (start date - stop date) Never Smoker NA - NA TOBACCO USE? Question Answer Notes Are you an other tobacco user? No Tobacco Control (Standard) Question Answer Notes Tobacco use: Nonsmoker AUDIT-C (Standard) Question Answer Notes Did you have a drink containing alcohol in the p ast year? No Points 0 Interpretation Negative Section Notes: NON SMOKER (AWV) No Social History docu mented (AWV) No Social History docu mented (AWV) No Social History docu mented (AWV) No Social History docu mented NON SMOKER NON SMOKER (AWV) No Social History docu mented (AWV) No Social History docu mented (AWV) No Social History docu mented (AWV) No Social History docu mented (AWV) No Social History docu mented (AWV) No Social History docu mented (AWV) No Social History docu mented (AWV) No Social History docu mented (AWV) No Social History docu mented (AWV) No Social History docu mented (AWV) No Social History docu mented (AWV) No Social History documented (AWV) No Social History docu mented (AWV) No Social History docu mented (AWV) No Social History docu mented (AWV) No Social History docu mented (AWV) No Social History docu mented (AWV) No Social History docu mented (AWV) No Social History docu mented (AWV) No Social History docu mented (AWV) No Social History docu mented (AWV) No Social History docu mented (AWV) No Social History docu mented NON SMOKER (AWV) No Social H istory documented (AWV) No Social History docu mented (AWV) No Social History docu mented (AWV) No Social History docu mented NON SMOKER (AWV) No Social H istory documented (AWV) No Social History docu mented (AWV) No Social History docu mented NON SMOKER (AWV) No Social H istory documented NON SMOKER (AWV) No Social H istory documented NON SMOKER (AWV) No Social H istory documented (AWV) No Social History docu mented NON SMOKER (AWV) No Social H istory documented NON SMOKER NON SMOKER NON SMOKER NON SMOKER (AWV) No Social History docu mented (AWV) No Social History docu mented (AWV) No Social History docu mented (AWV) No Social History docu mented (AWV) No Social History docu mented (AWV) No Social History docu mented (AWV) No Social History docu mented (AWV) No Social History docu mented (AWV) No Social History docu mented (AWV) No Social History docu mented (AWV) No Social History docu mented (AWV) No Social History docu mented (AWV) No Social History docu mented (AWV) No Social History docu mented (AWV) No Social History docu mented (AWV) No Social History docu mented (AWV) No Social History docu mented (AWV) No Social History docu mented (AWV) No Social History docu mented (AWV) No Social History docu mented (AWV) No Social History docu mented (AWV) No Social History docu mented (AWV) No Social History docu mented (AWV) No Social History docu mented NON SMOKER (AWV) No Social H istory documented NON SMOKER (AWV) No Social H istory documented (AWV) No Social History docu mented (AWV) No Social History docu mented (AWV) No Social History docu mented (AWV) No Social History docu mented (AWV) No Social History docu mented (AWV) No Social History docu mented (AWV) No Social History docu mented (AWV) No Social History docu mented NON SMOKER (AWV) No Social H istory documented (AWV) No Social History docu mented (AWV) No Social History docu mented (AWV) No Social History docu mented NON SMOKER (AWV) No Social H istory documented NON SMOKER (AWV) No Social H istory documented NON SMOKER (AWV) No Social H istory documented NON SMOKER (AWV) No Social H istory documented (AWV) No Social History docu mented (AWV) No Social History docu mented Problems Problem Type SNOMED Code ICD Code Onset Dates Problem Status W/U Status Risk Notes Problem Mixed hyperlipidemia (692879765) Mixed hyperlipidemia (E78.2) Active confirmed Problem 3681088 Hypocalcemia (E83.51) Active confirmed Problem Major depression, single episode, in complete remission (65054571) Major depressive disorder, single episode, in full remission (F32.5) Active confirmed Problem 86261852 Major depressive disorder, recurrent, in remission, unspecified (F33.40) Active confirmed Problem 09304715 Generalized anxiety disorder (F41.1) Active confirmed Problem 29822971 Other chronic pain (G89.29) Active confirmed Problem 900013037 Atherosclerotic heart disease of [place] coronary artery without angina pectoris (I25.10) Active confirmed Problem Paroxysmal atrial fibrillation (765445991) Paroxysmal atrial fibrillation (I48.0) Active confirmed Problem 50585131 Acute bronchitis , unspecified (J20.9) Active confirmed Problem Asthma without status asthmaticus (14288304) Unspecified asthma, uncomplicated (J45.909) Active confirmed Problem 540795313 Chronic respiratory failure with hypoxia (J96.11) Active confirmed Problem 4597546394888463 Primary osteoarthritis, right hand (M19.041) Active confirmed Problem 94574738 Nasal congestion (R09.81) Active confirmed Problem 628369423 History of tobacco use (Z87.891) Active confirmed Problem 34905895 Anxiety (F41.9) Active confirmed Problem Benign essential hypertension (1177937) Benign essential hypertension (I10) Active confirmed Problem 07699536 Bronchitis (J40) Active confirmed Problem 706486781 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 Problem 887878774 Hospital discharge follow-up (Z09) Active confirmed Problem 569699344 Thyroid nodule (E04.1) Active confirmed Problem Liver cyst (67080593) Liver cyst (K76.89) Active confirmed Problem 524797318 Lung nodule (R91.1) Active confirmed Problem 47791100 Senile osteoporosis (M81.0) Active confirmed Problem Skin lesion (51154237) Skin lesion (L98.9) Active confirmed Problem 543679492 COPD exacerbatio n (J44.1) Active confirmed Problem 77582886 Chronic fatigue (R53.82) Active confirmed Problem Congestion of nasal sinus (16022318) Congestion of nasal sinus (R09.81) Active confirmed Problem 824441254 Seasonal allergies (J30.2) Active confirmed Problem Bilateral tinnitus (3396611698474) Tinnitus of both ears (H93.13) Active confirmed Problem 15208126 Atrial fibrillation, unspecified type (I48.91) Active confirmed Problem Chills and fever (337032965) Fever and chills (R50.9) Active confirmed Problem Gastroesophageal reflux disease (355804183) GERD without esophagitis (K21.9) Active confirmed Problem Acquired hypothyroidism (423717525) Acquired hypothyroidism (E03.9) Active confirmed Problem 07621016 Dysphagia, unspecified type (R13.10) Active confirmed Problem 47023278 Acute non-recurrent maxillary sinusitis (J01.00) Active confirmed Problem 33825631 Chronic obstructive pulmonary disease, unspecified COPD type (J44.9) Active confirmed Problem 195457479 Leukocytosis, unspecified (D72.829) Active confirmed Problem 977752415 Panic attacks (F41.0) Active confirmed Problem 59805126 Venous insufficiency (I87.2) Active confirmed Problem 383610077 Decreased hearin g of both ears (H91.93) Active confirmed Problem 42006361 Mid sternal ches t pain (R07.89) Active confirmed Problem 677893390 Peripheral vascular disease (I73.9) Active confirmed Problem 29639115 Thyromegaly (E01.0) Active confirmed Problem 76394548 Depression, major, in remission (F32.5) Active confirmed Problem 22199520 Allergic rhinitis, unspecified seasonality, unspecified trigger (J30.9) Active confirmed Problem 70410694769626739 Rheumatoid arthritis involving both hands, unspecified rheumatoid factor presence (M06.9) Active confirmed Problem Muscle ache (84492941) Muscle ache (M79.10) Active confirmed Problem 822302313 Current use of steroid medication (Z79.52) Active confirmed Problem 031964429746442 Chronic obstructive pulmonary disease with (acute) lower respiratory infection (J44.0) Active confirmed Problem 418485138 Chronic atrial fibrillation (I48.20) Active confirmed Problem Acute cough (027003628597259216) Acute cough (R05.1) Active confirmed Problem Generalized headache (998488887) Generalized headache (R51.9) Active confirmed Vital Signs Heart Rate 68 /min 01/12/2025 MG Temperature 97.6 degrees Fahrenheit 01/12/2025 MG Respiratory Rate 17 /min 01/12/2025 MG Blood pressure diastolic 70 mm Hg 01/12/2025 MG Height 66 in 01/12/2025 MG Blood pressure systolic 112 mm Hg 01/12/2025 MG Weight 124 lbs 01/12/2025 MG BMI 20.01 kg/m2 01/12/2025 MG Encounters Encounter Location Date Provider Diagnosis [facility] [place] [address] 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 [address] [id number] 09/23/2024 Gareth Gusman Encounter for genera l adult medical examination without abnormal findings Z00.00 and Encounter for screening for other disorder Z13.89 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 [place] [address] [place] [id number] 05/05/2024 Gareth Naseem [facility] [place] [address] [place] [id number] 08/03/2024 Gareth [facility] [place] [address] [place] [id number] 09/11/2024 [facility] [place] [address] [place] [id number] 10/19/2024 Gareth Naseem [facility] [place] [address] [place] [id number] 10/22/2024 Gareth Gusmna Acquired hypothyroid ism E03.9 ; Mixed hyperlipidemia E78.2 ; Depressive disorder in remission F32.A and Benign essential hypertension I10 [facility] [address] [facility] [place] [id number] 01/12/2025 Gareth Gusman [facility] [address] [place] [address] 02/08/2025 Gareth Gusman Acquired hypothyroid ism E03.9 Assessments Encounter Date Diagnosis (ICD Code) Assessment Notes Treatment Notes Treatment Clinical Notes Section Notes 08/13/2024 Paroxysmal atrial fibrillation (ICD-10 - I48.0) The patient is to be continued on DOAC. Heart rate is controlled. Bleeding precautions discussed with patient. Fall precautions discussed with patient. Patient followed by cardiology service. Patient was advised to monitor for tachycardia or bradycardia. Patient was advised to monitor for any changes in breathing pattern/shortness of breath/chest pain /palpitation. Risk for bleeding discussed with patient. Patient with high risk for stroke based on [id number] score. 08/13/2024 Benign essential hypertension (ICD-10 - I10) 2 g sodium diet suggested. Goal blood pressure 120/80. Avoid hypotension. Complications of uncontrolled hypertension discussed with patient to include CKD, CVA, CAD. Advised to take medications regularly. Monitor blood pressure at home. 09/23/2024 Encounter for general adult medical examination without abnormal findings (ICD-10 - Z00.00) 09/23/2024 Encounter for screening for other disorder (ICD-10 - Z13.89) 11/03/2024 Mixed hyperlipidemia (ICD-10 - E78.2) You can [...] improve your health in many other ways. 11/03/2024 Benign essential hypertension (ICD-10 - I10) 2 g sodium diet suggested. Goal blood pressure 120/80. Avoid hypotension. Complications of uncontrolled hypertension discussed with patient to include CKD, CVA, CAD. Advised to take medications regularly. Monitor blood pressure at home. 02/08/2025 Acquired hypothyroidism (ICD-10 - E03.9) 01/12/2025 Benign essential hypertension (ICD-10 - I10) 2 g sodium diet suggested. Goal blood pressure 120/80. Avoid hypotension. Complications of uncontrolled hypertension discussed with patient to include CKD, CVA, CAD. Advised to take medications regularly. Monitor blood pressure at home. 01/12/2025 COPD (chronic obstructive pulmonary disease) with chronic bronchitis (ICD-10 - J44.9) Well-controll ed. Stable. Continue with current management. 10/22/2024 Acquired hypothyroidism (ICD-10 - E03.9) 10/22/2024 Mixed hyperlipidemia (ICD-10 - E78.2) 01/12/2025 Paroxysmal atrial fibrillation (ICD-10 - I48.0) Well-controlled. Stable. Continue with current management. 11/03/2024 Paroxysmal atrial fibrillation (ICD-10 - I48.0) The patient is to be continued on DOAC. Heart rate is controlled. Bleeding precautions discussed with patient. Fall precautions discussed with patient. Patient followed by cardiology service. Patient was advised to monitor for tachycardia or bradycardia. Patient was advised to monitor for any changes in breathing pattern/shortness of breath/chest pain /palpitation. Risk for bleeding discussed with patient. Patient with high risk for stroke based on [id number] score. 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 10/22/2024 Depressive disorder in remission (ICD-10 - F32.A) 10/22/2024 Benign essential hypertension (ICD-10 - I10) 01/12/2025 Tremor (ICD-10 - R25.1) 11/03/2024 Other chest pain (ICD-10 - R07.89) 08/13/2024 Chronic obstructive pulmonary disease, unspecified COPD type (ICD-10 - J44.9) 08/13/2024 Mixed hyperlipidemia (ICD-10 - E78.2) You can [...] improve your health in many other ways. 11/03/2024 Chronic obstructive pulmonary disease, unspecified COPD type (ICD-10 - J44.9) 01/12/2025 Chronic obstructive pulmonary disease, unspecified COPD type (ICD-10 - J44.9) Well-controlled. Stable. Continue with current management. 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 Stable. Continue with current management. 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 Continue with calcium and vitamin D supplementation. 01/12/2025 Acquired hypothyroidism (ICD-10 - E03.9) Well-controlled. Stable. Continue with current management. 01/12/2025 Depressive disorder in remission (ICD-10 - F32.A) No SI or HI symptoms. If you ever feel like you might hurt yourself or someone else helps available. In the [place] contact [employer] suicide and crisis [employer]. To speak to someone call or text [employer]. To talk to someone online go to [email or web address] rg/chat. Call us urgently. Or call an ambulance. Or go to the nearest emergency room. Counseling may be helpful. Continue to take your medication. Limit access to items that may cause harm such as guns or knives. 11/03/2024 Depressive disorder in remission (ICD-10 - F32.A) 08/13/2024 Depressive disorder in remission (ICD-10 - F32.A) 08/13/2024 BMI 21.0-21.9, adult (ICD-10 - Z68.21) 11/03/2024 BMI 21.0-21.9, adult (ICD-10 - Z68.21) 01/12/2025 BMI 20.0-20.9, adult (ICD-10 - Z68.20) 05/25/2024 Other Diet myths and facts material was printed 08/13/2024 Other Diet myths and facts material was printed 11/03/2024 Other Diet myths and facts material was printed 01/12/2025 Other Diet myths and facts material was printed Plan Of Treatment Pending Test Test Name Order Date X ray : Spines, cervical 07/03/2022 X ray : Shoulder, left 02/20/2018 X ray : Rib series, left 01/26/2019 X ray : Thoracic spine 2 views VINCENT 01/01/2019 Chest X-ray PA and lateral 01/01/2019 Chest X-ray PA and lateral 06/29/2019 Chest X-ray PA and lateral 10/09/2019 Chest X-ray PA and lateral 02/18/2020 Chest X-ray PA and lateral 07/05/2021 Chest X-ray PA and lateral 03/12/2022 Chest X-ray PA and lateral 08/24/2022 Chest X-ray PA and lateral 11/03/2024 Chest X-ray PA and lateral 03/17/2021 Chest X-ray PA and lateral 12/18/2021 Chest X-ray PA and lateral 05/22/2019 Chest X-ray PA and lateral 10/22/2018 Chest X-ray PA and lateral 01/30/2017 Electrocardiogram (EKG) 11/14/2017 Stool Culture 08/03/2022 Lyme IgG/IgM Ab 10/24/2016 D-Dimer 02/08/2017 D-Dimer 03/12/2022 D-Dimer 08/26/2019 Troponin I 03/12/2022 Troponin I 08/26/2019 Troponin I 08/24/2022 ABDELRAHMAN w/Reflex 10/24/2016 Stool-C Difficile Toxin 08/03/2022 Stool-giardia antigen 08/03/2022 X ray : CHEST PA LATERAL 10/10/2016 X ray : CHEST PA LATERAL 05/28/2018 MAMMOGRAM, SCREENING 07/28/2018 MRI : C spine 02/20/2018 X ray : Humerus, left 02/20/2018 X ray : LS Spine 01/01/2019 MRI : Thoracic without Contrast 10/05/20 Pulmonary Function Test 02/25/2017 X ray : Foot, left 3v 04/03/2019 LIVER ULTRASOUND 03/11/2020 THYROID ULTRASOUND 10/24/2017 LIPID PANEL 12/22/2018 LIPID PANEL 04/07/2021 LIPID PANEL 07/14/2020 LIPID PANEL 01/23/2018 LIPID PANEL 07/28/2018 LIPID PANEL 07/25/2017 COMPREHENSIVE METABOLIC PANEL 07/25/2017 COMPREHENSIVE METABOLIC PANEL 07/28/2018 COMPREHENSIVE METABOLIC PANEL 01/23/2018 COMPREHENSIVE METABOLIC PANEL 07/14/2020 COMPREHENSIVE METABOLIC PANEL 12/22/2018 COMPREHENSIVE METABOLIC PANEL 04/07/2021 COMPREHENSIVE METABOLIC PANEL 09/19/2022 COMPREHENSIVE METABOLIC PANEL 03/12/2022 COMPREHENSIVE METABOLIC PANEL 02/18/2020 BASIC METABOLIC PANEL 08/26/2019 BASIC METABOLIC PANEL 05/09/2022 BASIC METABOLIC PANEL 12/10/2019 BASIC METABOLIC PANEL 10/24/2016 CBC (INCLUDES DIFF/PLT) 10/24/2016 CBC (INCLUDES DIFF/PLT) 07/25/2017 CBC (INCLUDES DIFF/PLT) 11/27/2017 CBC (INCLUDES DIFF/PLT) 02/08/2017 CBC (INCLUDES DIFF/PLT) 12/10/2019 CBC (INCLUDES DIFF/PLT) 07/14/2020 CBC (INCLUDES DIFF/PLT) 01/23/2018 CBC (INCLUDES DIFF/PLT) 04/03/2019 CBC (INCLUDES DIFF/PLT) 07/28/2018 CBC (INCLUDES DIFF/PLT) 04/07/2021 CBC (INCLUDES DIFF/PLT) 12/22/2018 CBC (INCLUDES DIFF/PLT) 12/17/2018 CBC (INCLUDES DIFF/PLT) 08/26/2019 CBC (INCLUDES DIFF/PLT) 02/18/2020 CBC (INCLUDES DIFF/PLT) 03/12/2022 CBC (INCLUDES DIFF/PLT) 09/19/2022 URINALYSIS, COMPLETE 12/02/2017 URINALYSIS, COMPLETE 06/26/2017 C-REACTIVE PROTEIN 10/24/2016 VITAMIN B12 09/19/2022 TSH 03/12/2022 TSH 04/07/2021 TSH 12/22/2018 TSH 09/19/2022 TSH 07/25/2017 TSH 07/14/2020 TSH 12/10/2019 Vitamin d hydroxy 25 09/19/2022 CT Chest without Contrast 04/03/2019 CT Chest without Contrast 01/07/2020 STOOL HEMOCULT 08/03/2022 FLU SWAB 02/18/[address] chest for lung cancer screen ing - W/O 10/02/2016 stool for c diff 10/24/2016 bnp 02/08/2017 bnp 03/12/2022 CT CHEST - LOW DOSE 12/05/2018 CT CHEST FOR CANCER SCREENING LOW DOSE W ITHOUT CONTRAST 10/16/2017 ct abd and pelvis wo contrast 01/26/2019 stool for wbc 08/03/2022 CT HEAD W/O CONTRAST 07/03/2022 DEXA SCAN 10/01/2023 DEXA SCAN 04/27/2019 nebulizer machine and tubing 04/03/2019 mri left foot wo contrast 04/04/2019 CT Abdomen and Pelvis with out Oral or I V CONTRAST 03/12/2023 covid 19 02/18/2020 venous doppler left lower extremety 09/20 covid pcr/influenza a and b 12/18/2021 Sars Covid AG 07/05/2021 COVID RAPID TEST/INFLUENZA A & B/RSV 12/2021 COVID RAPID TEST/INFLUENZA A & B/RSV COVID RAPID TEST/INFLUENZA A & B/RSV CBC WITH PLT 01/12/2025 MAGNESIUM 01/12/2025 TSH 01/12/2025 D-DIMER 11/03/2024 COMPREHENSIVE METABOLIC PANEL (CMP) 12/20 LIPID PANEL 01/12/2025 Future Test Test Name Order Date GALLBLADDER ULTRASOUND 03/13/2018 VITAMIN B12 04/26/2021 TSH 06/07/2021 Vitamin D, 25-Hydroxy 10/28/2023 PtH intact 10/28/2023 CALCIUM, IONIZED 10/28/2023 Next Appt Details Provider Name:Anil Vargas, 03/05/2025 01:40:00 PM, [address] [place], [id number], Insurance Providers Payer Name Payer Address Payer Phone Subscriber Number Group Number Insured Name Patient Relationship to Insured Coverage Start Date Coverage End Date MEDICARE [address] [place], [place] [id number] EyerMilvia Self - patient is the insured [address] [place] [address] [id number] [facility] EyerMilvia Self - patient is the insured Medications Administered Medication Instructions Date of Administration Dosage Notes DEPO MEDROL 12/12/2016 40 mg DEPO MEDROL 01/30/2017 40 mg DEPO MEDROL 02/27/2017 40 mg DEPO MEDROL 10/09/2017 40 mL DEPO MEDROL 12/11/2017 40 mL DEPO MEDROL 03/11/2018 40 mL DEPO MEDROL 09/01/2018 40 mL DEPO MEDROL 10/22/2018 40 mL DEPO MEDROL 06/29/2019 40 mL Kenalog 10/09/2019 40 mg Triamcinolone Acetonide 05/29/2022 1 mL Triamcinolone Acetonide 09/19/2022 1 mL Triamcinolone Acetonide 02/14/2023 1 mL Medical (General) History Medical History History ICD Code SINUS THYROID NODULES PLANTERS FACIATIS STRESS FRACTURE LEFT LEG Thyroid nodule E04.1 Lung nodule R91.1 History of tobacco use Z87.891 Paroxysmal atrial fibrillation I48.0 Benign essential hypertension I10 Acquired hypothyroidism E03.9 Tinnitus of both ears H93.13 Major depressive disorder, single episod e, in full remission F32.5 Senile osteoporosis M81.0 Surgical History Surgery Date(Month/Year) HYSTERECTOMY 1974 TONSILECTOMY 1958 HEMORRHOID 2012 FACE LIFT NECK LIFT Hospitalization History Reason Date(Month/Year) COPD, PNEUMOTHORAX 11/2020 AFIB 10/2017 MEDICATIONS CHANGES 04/2018
--- OUTSIDE RECORDS SUMMARY | 2025-02-24 14:12 | XMS_ITS | Patient Health Record ---
Author Organization [facility] Address [address] [place], [place] [id number] Care Team Providers Care Printed Circuit Board Panels Trimmer Name Role Phone Gareth Gusman MD Primary Care Provider TAMY Robles Unavailable [phone] Allergies Allergen (clinical drug ingredient) Drug/Non Drug Allergy documented on EMR Reaction Allergy Type Onset Date Status Levaquin Unknown Drug Allergy Active cefprozil Cefprozil Unknown Drug Allergy Active Reason For Referral No Information Medications Medication SIG (Take, Route, Frequency, Duration) Notes Start Date End Date Status Acyclovir 400 MG TAKE 1 TABLET TWICE A DAY for 90 Active Levothyroxine Sodium 100 MCG 1 tablet Or ally Once a day Active Trelegy Ellipta 100-62.5-25 MCG/INH 1 puff Inhalation Once a day Active Zinc 50 MG 1 tablet Orally Once a day for 30 day(s) Active Rosuvastatin Calcium 10 MG 1 tablet Oral ly Once a day for 30 day(s) Active Vitamin C 500 MG as directed Orally Active Protonix 40 MG 1 tablet Orally Once a day for 30 day(s) Active Albuterol Sulfate (2.5 MG/3ML) 0.083% 3 ml as needed Inhalation every 8 hrs Active Fluticasone Propionate HFA 44 MCG/ACT 1 puff Inhalation Twice a day Active Multivitamin Adults 50+ Orally Active Eliquis 5 MG as directed Orally Active Flecainide Acetate 150 MG as directed Orally Active Vitamin D3 2000 UNIT 1 capsule Orally On ce a day for 30 day(s) Active Mucinex 600 MG 1 tablet as needed Orally every 12 hrs Active Telmisartan 20 MG 2 tablets Orally Onc e a day for 30 day(s) Active Immunizations Vaccine Route Administration Date Status Comme nts Pneumococcal PRV 13 Unknown 04/15/2015 Administered Pneumococcal PPSV23 Unknown 07/15/2012 Administered Td (adult) Unknown 08/25/2018 Administered Zostavax Unknown 12/02/2012 Administered Pneumococcal PRV 13 Unknown 03/11/2020 Administered Problems Problem Type SNOMED Code ICD Code Onset Dates Problem Status W/U Status Risk Notes Problem 616148141 Osteopenia (M85.80) Active confirmed Problem Herpes genitalis in women (A60.9) Active confirmed Problem 471944995 History of endometrial cancer (Z85.42) Active confirmed Problem 66019563 Post-menopausal atrophic vaginitis (N95.2) Active confirmed Problem 696675812 Hypothyroidism, acquired (E03.9) Active confirmed Plan Of Treatment Next Appt Details Provider Name:TAMY PEREZ, 03/03/2025 01:30:00 PM, [address] [place] [address], [address], [place], [place], [phone], Insurance Providers Payer Name Payer Address Payer Phone Subscriber Number Group Number Insured Name Patient Relationship to Insured Coverage Start Date Coverage End Date [place] [employer] PART B [address] [place] [phone] [id number] Eyer, Milvia Self - patient is the insured [address] [id number] Eyer, Milvia Self - patient is the insured Medical (General) History Medical History History ICD Code herpes - type II - Vulvar chronic sinusitis colonoscopy - 2011, Frost uterine cancer versus cervic al cancer-patient is unsure. Thinks it may not have been true cancer. age 34 osteopenia-Joe;2014, 2016-Naseem Uterus, Endometrial Cancer Breast, Other sign and symptom in breast hypothyroid A. fib- [place], anticoagulated 2018, K nopf now spontaneous [id number] tube , pleurodesis 2021 IM-Naseem Surgical History Surgery Date(Month/Year) total thyroidectomy-2018 hysterectomy, abdominal 1975
--- OUTSIDE RECORDS SUMMARY | 2025-02-24 14:13 | XMS_ITS ---
Author Organization [facility] Address [address] [place], [place] [phone] Care Team Providers Care String Top Sealer Name Role Phone Gareth Gusman MD Primary Care Provider TAMY Robles Unavailable [phone] Allergies Allergen (clinical drug ingredient) Drug/Non Drug Allergy documented on EMR Reaction Allergy Type Onset Date Status Levaquin Unknown Drug Allergy Active cefprozil Cefprozil Unknown Drug Allergy Active REASON FOR VISIT [...] Encounter Location Date Provider Diagnosis [facility] [address] [place] [phone] 01/31/2024 TAMY VELA Screening for malignant neoplasm [...] 1 Year,Ciara stiles n: Provider Name:TAMY PEREZ, 03/03/2025 01:30:00 PM, [address] [place] [address], [address], [place], [phone], Progress Notes * Milvia GRIJALVA GDOB:1945 ( 79 yo F)Acc No.[id number]:01/31/2024 Patient: Milvia CAMPO Provider: Andrea Vela MD :1945 A ge:79 Y S ex:Female Date:01/31/2024 Address:[address] [place], [place] [phone] Pcp:Gareth Gusman MD Subjective: * Chief Complaints: [...] and reconciled with the patient * Allergies: Ranjana Cardenas[Allergies Verified] Objective: * Vitals: B P:132/80mm Hg, [...] Generated for [address]/Андрей/Amiraitting on: 0 02/24/2025 03:12 PM EDT History and Physical Notes * [...]
--- OUTSIDE RECORDS SUMMARY | 2025-02-24 14:13 | XMS_ITS ---
Author Organization [facility] Address [address] [place] [address] Care Team Providers Care Bonderizer Name Role Phone QUYNH MONTOYA Unavailable [phone] Allergies Allergen (clinical drug ingredient) Drug/Non Drug Allergy documented on EMR Reaction Allergy Type Onset Date Status amoxicillin / clavulanate augmentin (uncoded) severe eye itchingand redness Allergy Active cefprozil cefprozil (uncoded) mima tightnes and wheezing Allergy Active levaquin (uncoded) pettechia Allergy A ctive REASON FOR VISIT INGROWN PROCEDURE 4TH TOE Medications Medication SIG (Take, Route, Frequency, Duration) Notes Start Date End Date Status Flecainide Acetate 100 MG Oral for 90 Days Active Rosuvastatin Calcium 10 MG Oral for 90 Days Active Telmisartan 20 MG Oral for 90 Days Active Levothyroxine Sodium 100 MCG Oral for 90 Days Active Acyclovir 400 MG Oral for 90 Days Active Trelegy Ellipta 100-62.5-25 MCG/ACT 1 puff Inhalation Once a day 08/10/2024 Active Eliquis 5 MG Oral for 30 Days Active Pantoprazole Sodium 40 MG Oral for 90 Days Active Social History Sex Assigned At : Social History Observation Description Sex Assigned At Female Vital Signs Blood pressure systolic 134 mm Hg 08/24/20 24 Blood pressure diastolic 78 mm Hg 024 Heart Rate 58 /min 08/24/2024 Height 65 in 08/24/2024 Weight 132 lbs 08/24/2024 BMI 21.96 kg/m2 08/24/2024 Encounters Encounter Location Date Provider Diagnosis [facility] [address] [place] [address] 08/24/2024 QUYNH MONTOYA Ingrowing nail L60.0 Assessments Encounter Date Diagnosis (ICD Code) Assessment Notes Treatment Notes Treatment Clinical Notes Section Notes 08/24/2024 Ingrowing nail (ICD-10 - L60.0) We discussed the findings and treatment options. Patient wants to proceed with surgical correction. See operative report Plan Of Treatment Treatment Notes Assessment Notes Ingrowing nail We discussed the fin dings and treatment options. Patient wants to proceed with surgical correction. See operative report Next Appt Details Follow Up: 2 Weeks, Reason: Procedure Notes * Category Sub-Category Detail Notes Toenail removal Ingrown Toenail Surgery The righ t 4th toe was identified and briefly prepped. We then anesthetized the toe using 1% Xylocaine plain. Following this the toe was prepped, a digital tourniquet was applied. The lateral nail border was identified, and using a freer elevator the nail was lifted. A venetian blind tape cutter was used to incise the border of the nail, a #61 blade was used to continue the cut proximally, and a hemostat was used to avulse the nail border. A curette was introduced to ablate the matrix . Following this, the matrix was cauterized with Phenol in the usual technique. Wound then flushed with alcohol and the tourniquet removed. A dry sterile compressive dressing was applied. The patient tolerated the procedure well, good blood flow maintained, and written instructions given for home care, with a follow up in 2 weeks. Progress Notes * Milvia GRIJALVA GDOB:1945 ( 79 yo F)Acc No.[id number]:08/24/2024 Progress Notes Patient: Milvia CAMPO Provider: Sherry Montoya :1945 A ge:79 Y S ex:Female Date:08/24/2024 Phone: Address:[address] [place] [address], [address], [id number] Subjective: * Chief Complaints: * I NGROWN PROCEDURE 4TH TOE * HPI: C onstitutional: Patient presents for an ingrown toenail procedure of the right 4th toe. Patient has stopped her Eliquis. * Medical History: * Surgical History: t hyroidectomy hysterectomy lung sx 2021facelift * Hospitalization/Major Diagno stic Procedure: N o Hospitalization History. * Family History: F ather: ,Cancer. M other: ,Heart Disease. * Medications: T akingFlecainide Acetate 100 MG Tablet Oral Acyclovir 400 MG Tablet Oral Levothyroxine Sodium 100 MCG Tablet Oral Telmisartan 20 MG Tablet Oral Rosuvastatin Calcium 10 MG Tablet Oral Pantoprazole Sodium 40 MG Tablet Delayed Release Oral Eliquis 5 MG Tablet Oral Trelegy Ellipta 100-62.5-25 MCG/ACT Aerosol Powder Breath Activated 1 puff Inhalation Once a day Medication List reviewed and reconciled with the patientTaking Flecainide Acetate 100 MG Tablet Oral Taking Acyclovir 400 MG Tablet Oral Taking Levothyroxine Sodium 100 MCG Tablet Oral Taking Telmisartan 20 MG Tablet Oral Taking Rosuvastatin Calcium 10 MG Tablet Oral Taking Pantoprazole Sodium 40 MG Tablet Delayed Release Oral Taking Eliquis 5 MG Tablet Oral Taking Trelegy Ellipta 100-62.5-25 MCG/ACT Aerosol Powder Breath Activated 1 puff Inhalation Once a day Medication List reviewed and reconciled with the patient * Allergies: l evaquin: pettechiacefprozil: mima tightnes and wheezingaugmentin: severe eye itchingand rednessno[Allergies Verified] Objective: * Vitals: H R:58/min, BP:134/78mm Hg, Wt:132lbs, BMI:21.96Index, Ht: 65 in, Ht-cm: 165.1 cm, Wt-k.87 kg. * Examination: I ran Nail: E valuation of the foot reveals the nail is incurvated along the border, there is evidence of proud flesh, redness, drainage, and infection. Additionally there is proximal nailfold redness and pain.Evaluation of the right foot reveals the 4th toenail is incurvated along the lateral border, there is no evidence of proud flesh, redness, drainage, or infection. Assessment: * Assessment: 1. I cesia nail - L60.0 (Primary) Plan: * Treatment: * Procedures: T oenail removal: Ingrown Toenail Surgery T he right 4th toe was identified and briefly prepped. We then anesthetized the toe using 1% Xylocaine plain. Following this the toe was prepped, a digital tourniquet was applied. The lateral nail border was identified, and using a freer elevator the nail was lifted. A venetian blind tape cutter was used to incise the border of the nail, a #61 blade was used to continue the cut proximally, and a hemostat was used to avulse the nail border. A curette was introduced to ablate the matrix . Following this, the matrix was cauterized with Phenol in the usual technique. Wound then flushed with alcohol and the tourniquet removed. A dry sterile compressive dressing was applied. The patient tolerated the procedure well, good blood flow maintained, and written instructions given for home care, with a follow up in 2 weeks. . * Procedure Codes: 1 1750 REMOVAL OF NAIL BED, Modifiers: T8 * Follow Up: 2 Weeks * * Sign off status: Completed true * Provider: Sherry Montoya Date: 10/24/[address]/Андрей/Amiraitting on: 0 02/24/2025 03:13 PM EDT History and Physical Notes * Examination Category Sub-Category Detail Notes Category Not es Ingrown Nail Evaluation of t he foot reveals the nail is incurvated along the border, there is evidence of proud flesh, redness, drainage, and infection. Additionally there is proximal nailfold redness and pain. Evaluation of the right foot reveals the 4th toenail is incurvated along the lateral border, there is no evidence of proud flesh, redness, drainage, or infection.
--- OUTSIDE RECORDS SUMMARY | 2025-02-24 14:13 | XMS_ITS | Patient Health Record ---
Author Organization [facility] Address [address] [place] [address] Support Name Relationship Address Phone Milvia Grijalva Guarantor Unknown [phone] REASON FOR REFERRAL No Information MEDICATIONS Medication SIG (Take, Route, Frequency, Duration) Notes Start Date End Date Status Levaquin 500 MG Oral Tablet 500 mg *please review for potential update for e-prescription and drug interaction check* 04/26/2014 Active Dymista (azelastine-flutica sone nasal) nasal spray 137 mcg-50 mcg/inh *please review for potential update for e-prescription and drug interaction check* 04/16/2013 Active PLAN OF TREATMENT No Information
--- OUTSIDE RECORDS SUMMARY | 2025-02-24 14:13 | XMS_ITS ---
Author Organization [facility] Address [address] [address] Care Team Providers Care Power System Electrical Engineer Name Role Phone Gareth Gusman Primary Care Provider REASON FOR VISIT dec synthroid rx sent Medications Medication SIG (Take, Route, Frequency, Duration) Notes Start Date End Date Status Levothyroxine Sodium 88 MCG 1 tablet on an empty stomach every morning Orally Once a day for 90 days Active Encounters Encounter Location Date Provider Diagnosis [facility] [address] [place] [address] 02/08/2025 Gareth Gusman Acquired hypothyroid ism E03.9 Assessments Encounter Date Diagnosis (ICD Code) Assessment Notes Treatment Notes Treatment Clinical Notes Section Notes 02/08/2025 Acquired hypothyroidism (ICD-10 - E03.9) Plan Of Treatment Medication Medication Name Sig Start Date Stop Date Notes Levothyroxine Sodium 88 MCG 1 tablet on an empty stomach every morning Orally Once a day for 90 days Next Appt Details Provider Name:Anil Vargas, 03/05/2025 01:40:00 PM, [address] [place], [address], Progress Notes * Milvia GRIJALVA GDOB:1945 ( 80 yo F)Acc No.[id number]:02/08/2025 Patient: Kari Milvia GASCA :1945 A ge:80 Y S ex:Female Address:[address] [place] [address], [address], [place], [address] * Refills Decrease Levothyroxine Sodium Tablet, 88 MCG, Orally, 90 Tablet, 1 tablet on an empty stomach every morning, Once a day, 90 days, Refills=3 * true * Date: Generated for [address]/Андрей/Amiraitting on: 0 02/24/2025 03:12 PM EDT
--- OUTSIDE RECORDS SUMMARY | 2025-02-24 14:13 | XMS_ITS | Patient Health Record ---
Author Organization [facility] - Address [address] [place] [address] Care Team Providers Care Cord Cutter Name Role Phone Gareth Gusman Primary Care Provider LUCA Butler Unavailable [phone] Allergies Allergen (clinical drug ingredient) Drug/Non Drug Allergy documented on EMR Reaction Allergy Type Onset Date Status Levaquin Unknown Drug Allergy Active cefprozil Cefprozil Unknown Drug Allergy Active cefazolin Cefazolin Unknown Drug Allergy Active Reason For Referral No Information Medications Medication SIG (Take, Route, Frequency, Duration) Notes Start Date End Date Status Mucinex 600 MG 1 tablet as needed Orally every 12 hrs Active Eliquis 5 MG 1 tablet Orally Twic e a day for 90 days Active Telmisartan 20 MG 1 tablets Orally Onc e a day Active Trelegy Ellipta Acti ve Rosuvastatin Calcium 10 MG 1 tablet Oral ly Once a day Active Zoloft 25 MG 1 tablet Orally Once a day Active Protonix 40 MG 1 tablet Orally Once a day Active Levothyroxine Sodium 100 MCG 1 tablet in the morning on an empty stomach Orally Once a day Active Flecainide Acetate 100 MG 1 tablet Orall y every 12 hrs for 30 days Active Social History Tobacco Use: Social History Observation Description Date Details (start date - stop date) Former Smoker NA - NA Tobacco Use/Smoking Question Answer Notes Are you a former smoker Alcohol Screen (Audit-C) Question Answer Notes Did you have a drink contain ing alcohol in the past year? Yes How often did you have a dri nk containing alcohol in the past year? Monthly or less (1 point) How many drinks did you have on a typical day when you were drinking in the past year? 1 or 2 drinks (0 point) Points 1 Interpretation Negative Problems Problem Type SNOMED Code ICD Code Onset Dates Problem Status W/U Status Risk Notes Problem Hypothyroidism (91040768) Hypothyroidism, unspecified (E03.9) Active confirmed Problem Mixed hyperlipidemia (796458672) Mixed hyperlipidemia (E78.2) Active confirmed Problem Paroxysmal atrial fibrillation (239888025) Paroxysmal atrial fibrillation (I48.0) Active confirmed Problem Atrial fibrillation (66929777) Unspecified atrial fibrillation (I48.91) Active confirmed Problem Palpitations (15319283) Palpitations (R00.2) Active confirmed Problem Hyperlipidemia (63393022) Other hyperlipidemia (E78.49) Active confirmed Problem Dyspnea (146855380) SOB (shortness of breath) (R06.02) Active confirmed Problem Atrial fibrillation (00908426) Paroxysmal A-fib (I48.0) Active confirmed Problem Primary hypertension (66903310) Primary hypertension (I10) Active confirmed Problem Skin sensation disturbance (13199722) Left leg numbness (R20.0) Active confirmed Vital Signs Heart Rate 51 /min 10/07/2024 Blood pressure diastolic 76 mm Hg 10/07/2024 Height 65 in 10/07/2024 Blood pressure systolic 128 mm Hg 10/07/2024 Weight 130 lbs 10/07/2024 BMI 21.63 kg/m2 10/07/2024 Encounters Encounter Location Date Provider Diagnosis [address] [place] [address] 05/28/2024 LUCA FERNÁNDEZ [facility] - [place] [address] [facility] [address] [place] [address] 02/26/2024 LUCA FERNÁNDEZ Unspecified atrial fibrillation I48.91 ; Primary hypertension I10 ; Other hyperlipidemia E78.49 ; Palpitations R00.2 ; SOB (shortness of breath) R06.02 ; Paroxysmal A-fib I48.0 ; BMI 21.0-21.9, adult Z68.21 ; Leg edema R60.0 ; Precordial chest pain R07.2 and Pre-op evaluation Z01.818 [facility] [place] [address] [place] [address] 05/26/2024 LUCA FERNÁNDEZ Unspecified atrial fibrillation I48.91 ; Primary hypertension I10 ; Other hyperlipidemia E78.49 ; Palpitations R00.2 ; SOB (shortness of breath) R06.02 ; Paroxysmal A-fib I48.0 ; BMI 21.0-21.9, adult Z68.21 ; Leg edema R60.0 ; Precordial chest pain R07.2 and Precordial pain R07.2 [facility] - [address] [facility] [address] [place] [address] 06/03/2024 LUCA FERNÁNDEZ Unspecified atrial fibrillation I48.91 ; Primary hypertension I10 ; Other hyperlipidemia E78.49 ; Palpitations R00.2 ; SOB (shortness of breath) R06.02 ; Paroxysmal A-fib I48.0 ; BMI 21.0-21.9, adult Z68.21 ; Leg edema R60.0 ; Precordial chest pain R07.2 and Precordial pain R07.2 [facility] - [address] [facility] [address] [place] [address] 10/07/2024 LUCA FERNÁNDEZ Primary hypertension I10 ; Other hyperlipidemia E78.49 ; Palpitations R00.2 ; SOB (shortness of breath) R06.02 ; Paroxysmal A-fib I48.0 ; BMI 21.0-21.9, adult Z68.21 ; Leg edema R60.0 ; Precordial pain R07.2 and Pre-op evaluation Z01.818 [facility] - [address] [facility] [address] [place] [address] 08/04/2024 LUCA FERNÁNDEZ Unspecified atrial fibrillation I48.91 [facility] - [address] [facility] [address] [place] [address] 10/22/2024 LUCA FERNÁNDEZ Unspecified atrial fibrillation I48.91 [facility] [address] [place] [address] 10/29/2024 LUCA FERNÁNDEZ [facility] [address] [facility] [address] [place] [address] 01/06/2025 LUCA FERNÁNDEZ Unspecified atrial fibrillation I48.91 [facility] [address] [place] [address] 01/12/2025 [facility] Unspecified atrial fibrillation I48.91 Assessments Encounter Date Diagnosis (ICD Code) Assessment Notes Treatment Notes Treatment Clinical Notes Section Notes 02/26/2024 Unspecified atrial fibrillation (ICD-10 - I48.91) 06/03/2024 Unspecified atrial fibrillation (ICD-10 - I48.91) 08/04/2024 Unspecified atrial fibrillation (ICD-10 - I48.91) 10/07/2024 Primary hypertension (ICD-10 - I10) 01/06/2025 Unspecified atrial fibrillation (ICD-10 - I48.91) 01/12/2025 Unspecified atrial fibrillation (ICD-10 - I48.91) 10/22/2024 Unspecified atrial fibrillation (ICD-10 - I48.91) 05/26/2024 Unspecified atrial fibrillation (ICD-10 - I48.91) 05/26/2024 Primary hypertension (ICD-10 - I10) 06/03/2024 Primary hypertension (ICD-10 - I10) 10/07/2024 Other hyperlipidemia (ICD-10 - E78.49) 02/26/2024 Primary hypertension (ICD-10 - I10) 02/26/2024 Other hyperlipidemia (ICD-10 - E78.49) 06/03/2024 Other hyperlipidemia (ICD-10 - E78.49) 10/07/2024 Palpitations (ICD-10 - R00.2) Loop in place. No afib. 05/26/2024 Other hyperlipidemia (ICD-10 - E78.49) 05/26/2024 Palpitations (ICD-10 - R00.2) 10/07/2024 SOB (shortness of breath) (ICD-10 - R06.02) 06/03/2024 Palpitations (ICD-10 - R00.2) 02/26/2024 Palpitations (ICD-10 - R00.2) 02/26/2024 SOB (shortness of breath) (ICD-10 - R06.02) 06/03/2024 SOB (shortness of breath) (ICD-10 - R06.02) 10/07/2024 Paroxysmal A-fib (ICD-10 - I48.0) Cont flecainide and eliquis. In NSR today. 05/26/2024 SOB (shortness of breath) (ICD-10 - R06.02) 05/26/2024 Paroxysmal A-fib (ICD-10 - I48.0) Cont flecainide and eliquis. In NSR today. 10/07/2024 BMI 21.0-21.9, adult (ICD-10 - Z68.21) 06/03/2024 Paroxysmal A-fib (ICD-10 - I48.0) Cont flecainide and eliquis. In NSR today. 02/26/2024 Paroxysmal A-fib (ICD-10 - I48.0) Cont flecainide and eliquis. In NSR today. 02/26/2024 BMI 21.0-21.9, adult (ICD-10 - Z68.21) 10/07/2024 Leg edema (ICD-10 - R60.0) 06/03/2024 BMI 21.0-21.9, adult (ICD-10 - Z68.21) 05/26/2024 BMI 21.0-21.9, adult (ICD-10 - Z68.21) 05/26/2024 Leg edema (ICD-10 - R60.0) 10/07/2024 Precordial pain (ICD-10 - R07.2) 02/26/2024 Leg edema (ICD-10 - R60.0) 06/03/2024 Leg edema (ICD-10 - R60.0) 06/03/2024 Precordial chest pain (ICD-10 - R07.2) Negative cath 02/26/2024 Precordial chest pain (ICD-10 - R07.2) Negative stress test 10/07/2024 Pre-op evaluation (ICD-10 - Z01.818) Low risk for colonoscopy. 05/26/2024 Precordial chest pain (ICD-10 - R07.2) Recent hospital visit and troponin was elevated. Will schedule cardiac cath. 05/26/2024 Precordial pain (ICD-10 - R07.2) 02/26/2024 Pre-op evaluation (ICD-10 - Z01.818) Low risk for procedure 06/03/2024 Precordial pain (ICD-10 - R07.2) 05/26/2024 Other 10/07/2024 Other Negative cath Plan Of Treatment Next Appt Details Provider Name:LUCA CARDONA [facility], 04/21/2025 03:00:00 PM, [address], [place], [address], Insurance Providers Payer Name Payer Address Payer Phone Subscriber Number Group Number Insured Name Patient Relationship to Insured Coverage Start Date Coverage End Date [employer] of [place] J10 [address] [place] [address] [phone] [id number] EyerMilvia Self - patient is the insured [employer] [place] [address] [place] [address] [id number] EyerMilvia Self - patient is the insured Medical (General) History Medical History History ICD Code loop recorder SOB (shortness of breath) R06.02 Palpitations R00.2 Primary hypertension I10 Mixed hyperlipidemia E78.2 Hypothyroidism, unspecified E03.9 COPD Left leg numbness R20.0 Paroxysmal A-fib I48.0 depression anxiety GERD ECHO: EF: 69.4%, mild-moderate TVR Stress: Negative- EF: 66% 02/08/22 ECHO: EF: 60-65% mild to moderate TVR Stress Test: Negative- EF: 80%, TID: 1.1 3 02/21/24 Chest x ray: Bilateral atele ctasis. No pleural effusion or pneumothorax is seen. Generalized cardiomegaly seen 05-24-2024 Troponin 46.4 05-25-2024 CATH: no CAD, normal EF 05/28/24 Surgical History Surgery Date(Month/Year) thyroidectomy, complete 2019 LUNG, LEFT cataract removal hysterectomy LOOP RECORDER [employer] 10/2021 tonsillectomy and adenoidectomy colonoscopy hemorrhoidectomy face lift neck lift
--- NOTE | 2025-02-24 14:58 | ED.URI ---
HPI - URI/Sore Throat General Chief Complaint: Upper Respiratory Infection Stated Complaint: sinus congestion/cough Time Seen by Provider: 02/24/25 14:45 Source: patient and RN notes reviewed Mode of arrival: ambulatory Limitations: no limitations History of Present Illness HPI Narrative: 80-year-old female presents Express Care complaining of upper respiratory symptoms for approximately 10 days. Patient said she started with cough and congestion over the last 4 days it has progressively gotten worse. Patient states her cough is more productive, she is coughing up more yellow sputum reports that the sputum is thicker thicker. Patient has a history of COPD. Patient denies any fevers, chills, chest pain, shortness of breath, sore throat, ear pain. Patient says the cough is worse at night when she lays down. Says her COPD is well controlled with her albuterol inhaler. Related Data Home Medications ?Medication ?Instructions ?Recorded ?Confirmed ?Last Taken ?Type acyclovir 400 mg tablet mg 02/24/25 Unknown History albuterol sulfate .ROUTE 02/24/25 Unknown History apixaban 5 mg tablet (Eliquis) mg 02/24/25 Unknown History flecainide 100 mg tablet mg 02/24/25 Unknown History bdstbsrqizd-ffpirbnrg-dmreowza inhalation 02/24/25 Unknown History guaifenesin PO 02/24/25 Unknown History levothyroxine 100 mcg tablet mcg 02/24/25 Unknown History (Synthroid) pantoprazole 40 mg tablet,delayed mg PO 02/24/25 Unknown History release rosuvastatin .ROUTE 02/24/25 Unknown History telmisartan 20 mg tablet mg 02/24/25 Unknown History Allergies Allergy/AdvReac Type Severity Reaction Status Date / Time amoxicillin (From Augmentin) Allergy Unknown Unknown Verified 02/24/25 14:13 cefprozil Allergy Unknown Unknown Verified 02/24/25 14:13 clavulanic acid (From Allergy Unknown Unknown Verified 02/24/25 14:13 Augmentin) levofloxacin (From Levaquin) Allergy Unknown Unknown Verified 02/24/25 14:13 Review of Systems Review of Systems: CONSTITUTIONAL: Denies fever, chills, body aches, or sweats. EYES: Denies visual changes, redness, or discharge. ENT: Denies rhinorrhea, sore throat, or otalgia. Positive for congestion. CARDIOVASCULAR: Denies chest pain, palpitations, or edema. RESPIRATORY: Positive for cough. Negative for dyspnea. GASTROINTESTINAL: Denies abdominal pain, nausea, vomiting, or diarrhea. GENITOURINARY: Denies dysuria or hematuria. SKIN: Denies rash or itching. MUSCULOSKELETAL: Denies back pain, joint pain, or myalgia. NEUROLOGIC: Denies headache, numbness, or weakness. PSYCHIATRIC: Denies anxiety or depression. All other systems reviewed are negative, except as documented in HPI. [facility] Past Medical History Medical History (Updated 02/24/25 @ 15:27 by Kyle Pathak APRN) COPD (chronic obstructive pulmonary disease) Comments At the time of my signature, I reviewed and agree with the nursing past medical, surgical, social, and family history. There is no relevant family history pertinent to the patient complaint. Exam Narrative: GENERAL: This is a well-nourished, well-developed adult, in no apparent distress. They are non ill-appearing, nontoxic appearing. HEAD: normocephalic, atraumatic. EYES: Sclera clear/white. Conjunctiva normal. Vision is grossly intact. Extraocular movements intact EARS: External ears normal, auditory canals clear and without drainage, TMs normal without perforation. Hearing grossly intact. Patient is wearing hearing aids. NOSE: External nose normal with no obvious nasal discharge, nasal turbinates erythematous without drainage, no rhinorrhea. THROAT: Mucous membranes moist, posterior pharynx clear, without erythema or swelling. Postnasal drip present. Uvula midline. NECK: Neck supple, non-tender without lymphadenopathy, masses or thyromegaly. CARDIOVASCULAR: Regular rate and rhythm without murmurs, gallops, or rubs. RESPIRATORY: Inspiratory wheezing throughout the lungs. No expiratory wheezes. Breath sounds equal bilaterally. No no rales or rhonchi. Respiratory rate normal, respiratory effort nonlabored, no respiratory distress, no accessory muscle use, no retractions. SKIN: warm, Dry, intact with no suspicious lesions or rash, good texture and turgor. NEURO: awake, alert, and oriented to person, place and time. There were no obvious focal neurologic abnormalities. EXTREMITIES: No joint tenderness, effusion, or edema noted. BACK: Nontender without deformity. No CVA tenderness. Course Course Emergency Course: Portions of this record may have been created with voice recognition software Level of Care: Express Care Visit Vital Signs Vital signs: Vital Signs Temperature 97.6 F 02/24/25 14:09 Pulse Rate 68 02/24/25 14:09 Respiratory Rate 16 02/24/25 14:09 Blood Pressure 143/67 H 02/24/25 14:09 Pulse Oximetry 96 02/24/25 14:09 Oxygen Delivery Room Air 02/24/25 14:09 Temperature 97.6 F 02/24/25 14:09 Pulse Rate 68 02/24/25 14:09 Respiratory Rate 16 02/24/25 14:09 Blood Pressure 143/67 H 02/24/25 14:09 Pulse Oximetry 96 02/24/25 14:09 Oxygen Delivery Room Air 02/24/25 14:09 Reviewed MDM - URI/Sore Throat MDM Narrative Medical decision making narrative: Chest x-ray shows a possible linear opacity to the left lower lobe lung zone favors atelectasis over pneumonia. Symptoms are consistent with a COPD exacerbation over pneumonia. Will treat empirically with prednisone and and doxycycline. Offered patient additional albuterol treatment given her inspiratory wheezes and she declined. Patient says she will use her albuterol at home. Patient is not in respiratory distress. Discussed physical exam findings. Advised supportive measures and signs/symptoms to go to the ER. Pt is appropriate for outpt treatment and f/u. Differential Diagnosis Differential diagnosis: Likely upper respiratory infection, bronchitis and other (Pneumonia, COPD exacerbation) Critical Care Time Critical Care Time Critical Care Time: No Discharge Plan Discharge Clinical Impression: Acute exacerbation of chronic obstructive pulmonary disease Patient Disposition: Home Condition: Stable Instructions: Antibiotic Form, COPD (Chronic Obstructive Pulmonary Disease) (DC) Additional Instructions: Her chest x-ray did not show any evidence of pneumonia. Take the doxycycline as directed. Please wear sunscreen while being outside while taking doxycycline. Take prednisone as directed, take with food in the morning. Continues to use your inhaler as needed at home. Please follow-up with your primary care doctor when you return to [place]. If he develops any chest pain, shortness of breath, or any other concerns please go to the ER immediately. Patient Language: Czech Prescriptions: New prednisone 20 mg tablet 40 mg PO DAILY 5 Days Qty: 10 0RF doxycycline monohydrate 100 mg capsule 100 mg PO BID 5 Days Qty: 10 0RF No Action acyclovir 400 mg tablet levothyroxine [Synthroid] 100 mcg tablet pantoprazole 40 mg tablet,delayed release (DR/EC) PO flecainide 100 mg tablet telmisartan 20 mg tablet Eliquis 5 mg tablet rosuvastatin .ROUTE agcjwiqsqqu-myebfualh-roqmwwdy [Trelegy Ellipta] inhalation albuterol sulfate .ROUTE guaifenesin [Mucinex] PO Follow-up/Referrals: UNKNOWN,DOCTOR [Primary Care Provider] - Time of Disposition: 15:27
== END 2025-02-24 15:31 | disposition home or self-care (01) ==
DX: J44.1 Chronic obstructive pulmonary disease with (acute) exacerbation (principal)
CPT/HCPCS: 71046; 99203; G0463

== ENCOUNTER 2025-06-29 16:14 | Emergency (ER) | payer MEDICARE, OTHER, SELFPAY ==
--- OUTSIDE RECORDS SUMMARY | 2024-01-29 09:00 | XMS_ITS ---
Author Organization [facility] Address [address] [place] [address] Care Team Providers Care Vegetable Buncher Name Role Phone QUYNH MONTOYA Unavailable [phone] REASON FOR VISIT INGROWN Social History Sex Assigned At : Social History Observation Description Sex Assigned At Female Encounters Encounter Location Date Provider Diagnosis [facility] [address] [place] [address] 01/29/2024 QUYNH MONTOYA Plan Of Treatment No Information Progress Notes * Milvia GRIJALVA GDOB:1945 ( 80 yo F)Acc No.[id number]:01/29/2024 Progress Notes Patient: Milvia CAMPO Provider: Sherry Montoya :1945 A ge:79 Y S ex:Female Date:01/29/2024 Phone: Address:[address] [place] [address], [address], [place], [id number] Subjective: * Chief Complaints: * 1 . INGROWN. * Medical History: Objective: * Vitals: Assessment: Plan: * Treatment: * * Electronic signature of KIERRA MONTOYA DPM on 06/29/2025 at 06:12 PM EDT Sign off status: Pending * Provider: Sherry Montoya Date: 0 01/29/[address]/Андрей/Christiano on: 0 06/29/2025 06:12 PM EDT
--- OUTSIDE RECORDS SUMMARY | 2024-01-31 09:15 | XMS_ITS ---
Author Organization [facility] Address [address] [place], [place] [id number] Care Team Providers Care Fondant Machine Operator Name Role Phone Gareth Gusman MD Primary Care Provider TAMY Robles [phone] Results Component Value Reference Range Notes MAMMOGRAM.ONSITE Reviewed date:02/06/2024 08:56:06 AM Interpretation: Performing Lab: Notes/Report: Encounters Encounter Location Date Provider Diagnosis [facility] [address] [place], [place] [id number] 01/31/2024 TAMY VELA Encounter for screening mammogram for malignant neoplasm of breast Z12.31 Assessments Encounter Date Diagnosis (ICD Code) Assessment Notes Treatment Notes Treatment Clinical Notes Section Notes 01/31/2024 Encounter for screening mammogram for malignant neoplasm of breast (ICD-10 - Z12.31) Plan Of Treatment Next Appt Details Follow Up: 1 Year, Reason: Provider Name:TAMY PEREZ, 04/07/2026 12:45:00 PM, [facility] [address], [place], [id number], Provider Name:TAMY PEREZ, 04/07/2026 01:00:00 PM, [address] [place] [address], [address], [place], [id number], Progress Notes * Milvia GRIJALVA GDOB:1945 ( 79 yo F)Acc No.[id number]:01/31/2024 Patient: Kari KAUFMANMilvia Mendez Provider: Andrea Vela MD :1945 A ge:79 Y S ex:Female Date:01/31/2024 Address:[address] [place] [address], [facility] Pcp:Gareth Gusman MD Subjective: * Chief Complaints: Objective: Assessment: * Assessment: 1. E ncounter for screening mammogram for malignant neoplasm of breast - Z12.31 (Primary) Plan: * Treatment: * Procedure Codes: 7 7067 Mammography, UnderBreast, 11634 BREAST TOMOSYNTHESIS BI * Follow Up: 1 Year * Images: * Sign off status: Completed true * Provider: Andrea Vela MD Date: 0 01/31/[address]/Андрей/Amiraitting on: 0 06/29/2025 06:09 PM EDT
--- OUTSIDE RECORDS SUMMARY | 2024-01-31 09:30 | XMS_ITS ---
Author Organization [facility] Address [address] [place], [place] [id number] Care Team Providers Care Library Technical Assistant Name Role Phone Gareth Gusman MD Primary Care Provider TAMY Robles Unavailable [phone] Allergies Allergen (clinical drug ingredient) Drug/Non Drug Allergy documented on EMR Reaction Allergy Type Onset Date Status cefprozil Cefprozil Unknown Drug Allergy Active Levaquin Unknown Drug Allergy Active REASON FOR VISIT herpes, Breast and pelvic Medications Medication SIG (Take, Route, Frequency, Duration) Notes Start Date End Date Status Rosuvastatin Calcium 10 MG 1 tablet Oral ly Once a day for 30 day(s) Active Multivitamin Adults 50+ Orally Active Eliquis 5 MG as directed Orally Active Mucinex 600 MG 1 tablet as needed Orally every 12 hrs Active Telmisartan 20 MG 2 tablets Orally Onc e a day for 30 day(s) Active Levothyroxine Sodium 100 MCG 1 tablet Or ally Once a day Active Trelegy Ellipta 100-62.5-25 MCG/INH 1 puff Inhalation Once a day Active Zinc 50 MG 1 tablet Orally Once a day for 30 day(s) Active Fluticasone Propionate HFA 44 MCG/ACT 1 puff Inhalation Twice a day Active Acyclovir 400 MG take 1 tablet twice a day Orally Twice a day for 90 days Active Vitamin C 500 MG as directed Orally Active Protonix 40 MG 1 tablet Orally Once a day for 30 day(s) Active Albuterol Sulfate (2.5 MG/3ML) 0.083% 3 ml as needed Inhalation every 8 hrs Active Flecainide Acetate 150 MG as directed Orally Active Vitamin D3 2000 UNIT 1 capsule Orally On ce a day for 30 day(s) Active Vital Signs Blood pressure systolic 132 mm Hg 01/31/20 24 Blood pressure diastolic 80 mm Hg 024 Height 65 in 01/31/2024 Weight 127.4 lbs 01/31/2024 BMI 21.2 kg/m2 01/31/2024 Encounters Encounter Location Date Provider Diagnosis [facility] [address] [place] [id number] 01/31/2024 TAMY VELA Screening for malignant neoplasm of cervix Z12.4 ; Herpes genitalis in women A60.9 ; Hypothyroidism, acquired E03.9 ; Osteopenia M85.80 ; History of endometrial cancer Z85.42 and Post-menopausal atrophic vaginitis N95.2 Assessments Encounter Date Diagnosis (ICD Code) Assessment Notes Treatment Notes Treatment Clinical Notes Section Notes 01/31/2024 Screening for malignant neoplasm of cervix (ICD-10 - Z12.4) 01/31/2024 Herpes genitalis in women (ICD-10 - A60.9) Refilll acyclovir She may try to stop and see if recurrence Discussed the importance of doing blood work yearly and potential need to change dose if reduced renal function 01/31/2024 Hypothyroidism, acquired (ICD-10 - E03.9) Patient is status post thyroidectomy 01/31/2024 Osteopenia (ICD-10 - M85.80) 2019 dexa with ortho 01/31/2024 History of endometrial cancer (ICD-10 - Z85.42) john, unsure if true cancer 01/31/2024 Post-menopausal atrophic vaginitis (ICD-10 - N95.2) discussed implications 01/31/2024 Other Breast Health: Breast Self-Awareness material was published to portal Pt referred for diarrhea past 6 mos. by STEFANO Gusman, discussed dietary calcium, vitamin D, weight-bearing exercise Status post hysterectomy Plan Of Treatment Medication Medication Name Sig Start Date Stop Date Notes Acyclovir 400 MG take 1 tablet twice a day Orally Twice a day for 90 days Treatment Notes Assessment Notes Herpes genitalis in women Refilll acyclovir She may try to stop and see if recurrence Discussed the importance of doing blood work yearly and potential need to change dose if reduced renal function Hypothyroidism, acquired Patient is status post thyroidectomy Osteopenia 2019 dexa with ortho History of endometrial cancer john, unsur e if true cancer Post-menopausal atrophic vaginitis discu ssed implications Other Breast Health: Breast Self-Awareness material was published to portal Pt referred for diarrhea past 6 mos. by STEFANO Gusman, discussed dietary calcium, vitamin D, weight-bearing exercise Status post hysterectomy Next Appt Details Follow Up: 1 Year,Ciara stiles n: Provider Name:TAMY PEREZ, 04/07/2026 12:45:00 PM, [address], [address], [place], [place], [phone], Provider Name:TAMY PEREZ, 04/07/2026 01:00:00 PM, [address], [address], [place], [place], [id number], Progress Notes * Milvia GRIJALVA GDOB:1945 ( 79 yo F)Acc No.[id number]:01/31/2024 Patient: Milvia CAMPO Provider: Andrea Vela MD :1945 A ge:79 Y S ex:Female Date:01/31/2024 Address:[address] [place], [place] [phone] Pcp:Gareth Gusman MD Subjective: * Chief Complaints: * H erpesBreast and pelvic * HPI: H ISTORY: Needs annual. Pt gets occas outbreaks of herpes since reducing the acyclovir to 400 daily.? She has been previously on chronic dosing of 400 mg twice a day she has blood work planned. Feels like it healed over past 2 d. * ROS: B reast: Denies B loody nipple discharge. D enies B reast lump. D enies B reast pain. D enies B reast swelling. G astrointestinal: Denies A bdominal pain. D enies B lood in stool.?Denies C hange in bowel habits. D enies N ausea. D enies V omiting. ? W omen Only: Denies V aginal discharge/itching. G enitourinary: Denies B lood in urine. D enies F requent urination. D enies P ain in lower back. D enies P ainful urination. * Medical History: * Surgical History: h ysterectomy, abdominal 1975total thyroidectomy-Frost 2018 * Hospitalization/Major Diagno stic Procedure: N o Hospitalization History. * Family History: F ather: cirrhoisis-Etoh. M other: heart disease, diagnosed with Heart Disease. S iblings: colon polyps. * Social History: T obacco Use: T obacco Use/Smoking A re you a: nonsmoker. D rugs/Alcohol: D rugs H ave you used drugs other than those for medical reasons in the past 12 months??No. A lcohol Screen P oints: 0, Interpretation: Negative. M iscellaneous: M arital status: Single Yes. Occupation: unemployed. * Medications: T akingMucinex 600 MG Tablet Extended Release 12 Hour 1 tablet as needed Orally every 12 hrs Telmisartan 20 MG Tablet 2 tablets Orally Once a day Multivitamin Adults 50+ Tablet Orally Eliquis 5 MG Tablet as directed Orally Flecainide Acetate 150 MG Tablet as directed Orally Vitamin D3 2000 UNIT Capsule 1 capsule Orally Once a day Vitamin C 500 MG Capsule as directed Orally Protonix 40 MG Tablet Delayed Release 1 tablet Orally Once a day Albuterol Sulfate (2.5 MG/3ML) 0.083% Nebulization Solution 3 ml as needed Inhalation every 8 hrs Fluticasone Propionate HFA 44 MCG/ACT Aerosol 1 puff Inhalation Twice a day Levothyroxine Sodium 100 MCG Tablet 1 tablet Orally Once a day Trelegy Ellipta 100-62.5-25 MCG/INH Aerosol Powder Breath Activated 1 puff Inhalation Once a day Zinc 50 MG Tablet 1 tablet Orally Once a day Rosuvastatin Calcium 10 MG Tablet 1 tablet Orally Once a day Acyclovir 400 MG Tablet take 1 tablet twice a day Orally Twice a day Medication List reviewed and reconciled with the patientTaking Mucinex 600 MG Tablet Extended Release 12 Hour 1 tablet as needed Orally every 12 hrs Taking Telmisartan 20 MG Tablet 2 tablets Orally Once a day Taking Multivitamin Adults 50+ Tablet Orally Taking Eliquis 5 MG Tablet as directed Orally Taking Flecainide Acetate 150 MG Tablet as directed Orally Taking Vitamin D3 2000 UNIT Capsule 1 capsule Orally Once a day Taking Vitamin C 500 MG Capsule as directed Orally Taking Protonix 40 MG Tablet Delayed Release 1 tablet Orally Once a day Taking Albuterol Sulfate (2.5 MG/3ML) 0.083% Nebulization Solution 3 ml as needed Inhalation every 8 hrs Taking Fluticasone Propionate HFA 44 MCG/ACT Aerosol 1 puff Inhalation Twice a day Taking Levothyroxine Sodium 100 MCG Tablet 1 tablet Orally Once a day Taking Trelegy Ellipta 100-62.5-25 MCG/INH Aerosol Powder Breath Activated 1 puff Inhalation Once a day Taking Zinc 50 MG Tablet 1 tablet Orally Once a day Taking Rosuvastatin Calcium 10 MG Tablet 1 tablet Orally Once a day Taking Acyclovir 400 MG Tablet take 1 tablet twice a day Orally Twice a day Medication List reviewed and reconciled with the patient * Allergies: L Ronald[Allergies Verified] Objective: * Vitals: B P:132/80mm Hg, Ht: 65 in, Wt:127.4lbs, BMI:21.2Index. * Examination: G eneral Examination: GENERAL APPEARANCE: p leasant, well nourished, well developed, in no acute distress. B REASTS: no discharge, no drainage, No asymmetry, dimpling, retraction, or rash, no masses palpable bilaterally, nontender,Axilla neg.. G enitourinary - Female: ABDOMEN: n o costovertebral angle tenderness, no hernia, no masses felt, no organomegaly, soft, non-tender/non-distended, bowel sounds present, no ascites.?VULVA n o lesions. U RETHRAL MEATUS: n ormal. U RETHRA: n ormal. V AGINA: no mucosal lesions or discharge. B LADDER; w ell-supported. A DNEXAL n o masses palpated, non-tender. A NUS/PERINEUM: n ormal. C ERVIX: n o lesions or abnormal discharge. U TERUS: n ormal size, mobile. O VARIES: n o masses felt in adnexa, nontender. R ECTAL EXAM: n o masses. Assessment: * Assessment: 1. S creening for malignant neoplasm of cervix - Z12.4 (Primary) 2 . H erpes genitalis in women - A60.9 3 . H ypothyroidism, acquired - E03.9 4 . O steopenia - M85.80 5 . H istory of endometrial cancer - Z85.42 6 . P ost-menopausal atrophic vaginitis - N95.2 Plan: * Treatment: 2. H ypothyroidism, acquired Notes:Patient is status post thyroidectomy 3. O steopenia Notes: 2019 dexa with ortho 4. H istory of endometrial cancer Notes: john, unsure if true cancer 5. P ost-menopausal atrophic vaginitis Notes: discussed implications 6. O thers Notes: Breast Health: Breast Self-Awareness material was published to portalPt referred for diarrhea past 6 mos. by STEFANO Gusman, discussed dietary calcium, vitamin D, weight-bearing exerciseStatus post hysterectomy ? * Procedure Codes: G 0101 BREAST PELVIC, Modifiers: [place] * Preventive Medicine: Counseling: D iet . E xercise . S moking . B reast self-exam advised monthly. * Follow Up: 1 Year,prn * Images: * Sign off status: Completed true * Provider: Andrea Vela MD Date: 0 01/31/2024 Generated for Jayloni yenifer/Андрей/eTransmitting on: 0 06/29/2025 06:12 PM EDT History and Physical Notes * HPI (History of Present Illness) Category Sub-Category Detail Notes Category Not es HISTORY Needs annual. P t gets occas outbreaks of herpes since reducing the acyclovir to 400 daily. She has been previously on chronic dosing of 400 mg twice a day she has blood work planned. Feels like it healed over past 2 d. Examination Category Sub-Category Detail Notes Category Not es Genitourinary - Female ABDOMEN: no costov ertebral angle tenderness, no hernia, no masses felt, no organomegaly, soft, non-tender/non-distended, bowel sounds present, no ascites VULVA no lesions VAGINA: no mucosal lesions o r discharge CERVIX: no lesions or abnorm al discharge UTERUS: normal size, mobile OVARIES: no masses felt in ad nexa, nontender RECTAL EXAM: no masses URETHRAL MEATUS: normal URETHRA: normal BLADDER; well-supported ADNEXAL no masses palpated, non-tender ANUS/PERINEUM: normal General Examination GENERAL APPEARANCE: pleasant , well nourished, well developed, in no acute distress BREASTS: no discharge, no keanu inage, No asymmetry, dimpling, retraction, or rash, no masses palpable bilaterally, nontender,Axilla neg.
--- OUTSIDE RECORDS SUMMARY | 2024-07-01 12:00 | XMS_ITS ---
Author Organization [facility] Address [address] [place] [address] Care Team Providers Care Casting Room Operator Name Role Phone Gareth Gusman Primary Care Provider Unavailabl LUCA Yao Unavailable [phone] REASON FOR VISIT 6 months f/u Encounters Encounter Location Date Provider Diagnosis [facility] [address] [place] [address] 07/01/2024 LUCA ESCOBEDO Plan Of Treatment Next Appt Details Provider Name:LUCA CARDONA [facility], 08/25/2025 02:45:00 PM, [address], [address], [place], [address], Progress Notes * Milvia RIVAS GDOB:1945 ( 80 yo F)Acc No.[id number]:07/01/2024 Progress Notes Patient: Milvia CAMPO Provider: Urban Escobedo MD, [facility] :1945 A ge:79 Y S ex:Female Date:07/01/2024 Address:[address], [address], [id number] Pcp:Gareth Gusman Subjective: * Chief Complaints: * 1 . 6 months f/u. * Medical History: Objective: * Vitals: Assessment: Plan: * Treatment: * Images: * Electronic signature of CHRISTOPHER ESCOBEDO M.D., [id number] on 06/29/2025 at 06:10 PM EDT Sign off status: Pending * Provider: Urban Escobedo MD, [facility] Date: 0 07/01/[address]/Андрей/Christiano on: 0 06/29/2025 06:10 PM EDT
--- OUTSIDE RECORDS SUMMARY | 2024-09-07 08:30 | XMS_ITS ---
Author Organization [facility] Address [address] [place] [address] Care Team Providers Care Synthetic Plasterer Name Role Phone QUYNH MONTOYA Unavailable [phone] REASON FOR VISIT 2 WK RIGHT 4TH INGROWN Social History Sex Assigned At : Social History Observation Description Sex Assigned At Female Encounters Encounter Location Date Provider Diagnosis [facility] [address] [place] [address] 09/07/2024 QUYNH MONTOYA Plan Of Treatment No Information Progress Notes * Milvia GRIJALVA GDOB:1945 ( 80 yo F)Acc No.[id number]:09/07/2024 Progress Notes Patient: Milvia CAMPO Provider: Sherry Montoya :1945 A ge:79 Y S ex:Female Date:09/07/2024 Phone: Address:[address] [place] [address], [address], [place], [id number] Subjective: * Chief Complaints: * 1 . 2 WK RIGHT 4TH INGROWN. * Medical History: Objective: * Vitals: Assessment: Plan: * Treatment: * * Electronic signature of KIERRA MONTOYA DPM on 06/29/2025 at 06:11 PM EDT Sign off status: Pending * Provider: Sherry Montoya Date: 11/07/[address]/Андрей/Christiano on: 0 06/29/2025 06:11 PM EDT
--- OUTSIDE RECORDS SUMMARY | 2024-09-30 12:00 | XMS_ITS ---
Author Organization [facility] Address [address] [place] [address] Care Team Providers Care Computer Lab Aide Name Role Phone Gareth Gusman Primary Care Provider Unavailabl LUCA Yao Unavailable [phone] REASON FOR VISIT hospital f/u C- sx clearance Encounters Encounter Location Date Provider Diagnosis [facility] [address] [place] [address] 09/30/2024 LUCA ESCOBEDO Plan Of Treatment Next Appt Details Provider Name:LUCA CARDONA [facility], 08/25/2025 02:45:00 PM, [address], [address], [place], [address], Progress Notes * Milvia GRIJALVA GDOB:1945 ( 80 yo F)Acc No.[id number]:09/30/2024 Progress Notes Patient: Milvia CAMPO Provider: Urban Escobedo MD, [facility] :1945 A ge:79 Y S ex:Female Date:09/30/2024 Address:[address], [address], [id number] Pcp:Gareth Gusman Subjective: * Chief Complaints: * 1 . hospital f/u [facility]- sx clearance. * Medical History: Objective: * Vitals: Assessment: Plan: * Treatment: * Images: * Electronic signature of CHRISTOPHER ESCOBEDO M.D., [id number] on 06/29/2025 at 06:08 PM EDT Sign off status: Pending * Provider: Urban Escobedo MD, [facility] Date: 1 12/01/[address]/Андрей/Christiano on: 0 06/29/2025 06:08 PM EDT
--- OUTSIDE RECORDS SUMMARY | 2024-12-09 12:00 | XMS_ITS ---
Author Organization [facility] Address [address] [place] [address] Care Team Providers Care Link Assembler Name Role Phone Gareth Gusman Primary Care Provider LUCA Butler Unavailable [phone] Allergies Allergen (clinical drug ingredient) Drug/Non Drug Allergy documented on EMR Reaction Allergy Type Onset Date Status Levaquin Unknown Drug Allergy Active cefprozil Cefprozil Unknown Drug Allergy Active cefazolin Cefazolin Unknown Drug Allergy Active REASON FOR VISIT 6 months f/u Medications Medication SIG (Take, Route, Frequency, Duration) Notes Start Date End Date Status Telmisartan 20 MG 1 tablets Orally Onc e a day Active Rosuvastatin Calcium 10 MG 1 tablet Oral ly Once a day Active Flecainide Acetate 100 MG 1 tablet Orall y every 12 hrs; Duration: 30 days Active Encounters Encounter Location Date Provider Diagnosis [facility] [address] [place] [address] 12/09/2024 LUCA ESCOBEDO Primary hypertension I10 ; Other hyperlipidemia E78.49 ; Palpitations R00.2 ; SOB (shortness of breath) R06.02 ; Paroxysmal A-fib I48.0 ; BMI 21.0-21.9, adult Z68.21 ; Leg edema R60.0 and Precordial chest pain R07.2 Assessments Encounter Date Diagnosis (ICD Code) Assessment Notes Treatment Notes Treatment Clinical Notes Section Notes 12/09/2024 Primary hypertension (ICD-10 - I10) 12/09/2024 Other hyperlipidemia (ICD-10 - E78.49) 12/09/2024 Palpitations (ICD-10 - R00.2) 12/09/2024 SOB (shortness of breath) (ICD-10 - R06.02) 12/09/2024 Paroxysmal A-fib (ICD-10 - I48.0) Cont flecainide and eliquis. In NSR today. 12/09/2024 BMI 21.0-21.9, adult (ICD-10 - Z68.21) 12/09/2024 Leg edema (ICD-10 - R60.0) 12/09/2024 Precordial chest pain (ICD-10 - R07.2) Negative cath Plan Of Treatment Medication Medication Name Sig Start Date Stop Date Notes Telmisartan 20 MG 1 tablets Orally Once a day Rosuvastatin Calcium 10 MG 1 tablet Orally Once a day Flecainide Acetate 100 MG 1 tablet Orall y every 12 hrs; Duration: 30 days Treatment Notes Assessment Notes Paroxysmal A-fib Cont flecainide and eliquis. In NSR today. Precordial chest pain Negative cath Next Appt Details Provider Name:LCUA CARDONA [facility], 08/25/2025 02:45:00 PM, [address], [place], [address], Progress Notes * Milvia GRIJALVA GDOB:1945 ( 80 yo F)Acc No.[id number]:12/09/2024 Progress Notes Patient: Milvia CAMPO Provider: Urban Escobedo MD, [facility] :1945 A ge:79 Y S ex:Female Date:12/09/2024 Address:[address] [place] [address], [address], [phone] Pcp:Gareth Gusman Subjective: * Chief Complaints: * 1 . 6 months f/u. * Medical History: L oop recorder, SOB (shortness of breath), Palpitations, Primary hypertension, Mixed hyperlipidemia, Hypothyroidism, unspecified, COPD, Left leg numbness, Paroxysmal A-fib, Depression, Anxiety, GERD, ECHO: EF: 69.4%, mild-moderate TVR 02/07/22, Stress: Negative- EF: 66% 02/08/22, ECHO: EF: 60-65% mild to moderate TVR 06/12/23, Stress Test: Negative- EF: 80%, TID: 1.13 02/21/24, Chest x ray: Bilateral atelectasis. No pleural effusion or pneumothorax is seen. Generalized cardiomegaly seen 05-24-2024, Troponin 46.4 05-25-2024, CATH: no CAD, normal EF 05/28/24. * Allergies: C efazolin, Levaquin, Cefprozil. Objective: * Vitals: Assessment: * Assessment: 1. P rimary hypertension - I10 2 . O ther hyperlipidemia - E78.49 ? 3 . P alpitations - R00.2 4 . S OB (shortness of breath) - R06.02? 5. P aroxysmal A-fib - I48.0 6 . B NE 21.0-21.9, adult - Z68.21 7 . L eg edema - R60.0 8 . P recordial chest pain - R07.2? Plan: * Treatment: 2. O ther hyperlipidemia Continue Rosuvastatin Calcium Tablet, 10 MG, 1 tablet, Orally, Once a day. 3. P aroxysmal A-fib Notes: Cont flecainide and eliquis. In NSR today. 4. P recordial chest pain Notes: Negative cath 5. O thers Continue Flecainide Acetate Tablet, 100 MG, 1 tablet, Orally, every 12 hrs, 30 days, 60 Tablet, Refills 6. * Images: * Electronic signature of JUST IN Samantha ESCOBEDO, [id number] on 06/29/2025 at 06:09 PM EDT Sign off status: Pending * Provider: Urban Escobedo MD, [facility] Date: 0 12/09/[address]/Андрей/Christiano on: 0 06/29/2025 06:09 PM EDT
--- OUTSIDE RECORDS SUMMARY | 2025-02-05 09:00 | XMS_ITS ---
Author Organization [facility] Address [address] [place], [place] [id number] Care Team Providers Care Character Impersonator Name Role Phone Gareth Gusman MD Primary Care Provider TAMY Robles [phone] Encounters Encounter Location Date Provider Diagnosis [facility] [address] [place], [place] [phone] 02/05/2025 TAMY VELA Plan Of Treatment Next Appt Details Provider Name:TAMY PEREZ, 04/07/2026 12:45:00 PM, [facility] [address], [place], [place], [phone], Provider Name:TAMY PEREZ, 04/07/2026 01:00:00 PM, [facility] [address], [place], [place], [phone], Progress Notes * Milvia GRIJALVA GDOB:1945 ( 80 yo F)Acc No.[id number]:02/05/2025 Patient: Milvia CAMPO Provider: Andrea Vela MD :1945 A ge:80 Y S ex:Female Date:02/05/2025 Address:[address] [place] [address] Pcp:Gareth Gusman MD Subjective: * Chief Complaints: Objective: Assessment: Plan: * Treatment: * Images: * Electronic signature of NANDO VELA MD on 06/29/2025 at 06:11 PM EDT Sign off status: Pending * Provider: Andrea Vela MD Date: 0 02/05/[address]/Андрей/Christiano on: 0 06/29/2025 06:11 PM EDT
--- OUTSIDE RECORDS SUMMARY | 2025-03-03 08:30 | XMS_ITS ---
Author Organization [facility] Address [address] [place], [place] [id number] Care Team Providers Care Research Rn Spec Name Role Phone Gareth Gusman MD Primary Care Provider TAMY Robles [phone] Results Component Value Reference Range Notes [email or web address].ONSITE Reviewed date:03/04/2025 12:23:58 PM Interpretation: Performing Lab: Notes/Report: Encounters Encounter Location Date Provider Diagnosis [facility] [address] [place], [place] [id number] 03/03/2025 TAMY VELA Encounter for screening mammogram for malignant neoplasm of breast Z12.31 Assessments Encounter Date Diagnosis (ICD Code) Assessment Notes Treatment Notes Treatment Clinical Notes Section Notes 03/03/2025 Encounter for screening mammogram for malignant neoplasm of breast (ICD-10 - Z12.31) Plan Of Treatment Next Appt Details Follow Up: 1 Year, Reason: Provider Name:TAMY PEREZ, 04/07/2026 12:45:00 PM, [facility] [address], [address], [place], [id number], Provider Name:TAMY PEREZ, 04/07/2026 01:00:00 PM, [address] [place] [address], [address], [place], [id number], Progress Notes * Milvia GRIJALVA GDOB:1945 ( 80 yo F)Acc No.[id number]:03/03/2025 Patient: Kari KAUFMANMilvia Mendez Provider: Andrea Vela MD :1945 A ge:80 Y S ex:Female Date:03/03/2025 Address:[address] [place] [address], [facility] Pcp:Gareth Gusman MD Subjective: * Chief Complaints: Objective: Assessment: * Assessment: 1. E ncounter for screening mammogram for malignant neoplasm of breast - Z12.31 (Primary) ? Plan: * Treatment: * Procedure Codes: 7 7067 Mammography, UnderBreast, 79016 BREAST TOMOSYNTHESIS BI * Follow Up: 1 Year * Images: * Sign off status: Completed true * Provider: Andrea Vela MD Date: 0 03/03/[address]/Андрей/Christiano on: 0 06/29/2025 06:09 PM EDT
--- OUTSIDE RECORDS SUMMARY | 2025-04-28 05:14 | XMS_ITS ---
Author Organization [facility] Address [address] [place], [place] [id number] Care Team Providers Care Medical Consultant Name Role Phone Gareth Gusman MD Primary Care Provider TMAY Robles [phone] Medications Medication SIG (Take, Route, Fr equency, Duration) Notes Start Date End Date Status Acyclovir 400 MG TAKE 1 TABLET TWICE A DAY for 90 Active Encounters Encounter Location Date Provider Diagnosis [facility] [address] [place], [place] [id number] 04/28/2025 TAMY HAIR Herpes genitalis in women A60.9 Assessments Encounter Date Diagnosis (ICD Code) Assessment Notes Treatment Notes Treatment Clinical Notes Section Notes 04/28/2025 Herpes genitalis in women (ICD-10 - A60.9) Plan Of Treatment Medication Medication Name Sig Start Date Stop Date Notes Acyclovir 400 MG TAKE 1 TABLET TWICE A DAY for 90 Next Appt Details Provider Name:TAMY PEREZ, 04/07/2026 12:45:00 PM, [address] [place] [address], [address], [place], [id number], Provider Name:TAMY PEREZ, 04/07/2026 01:00:00 PM, [address] [place] [address], [facility] [place], [phone], Progress Notes * Milvia GRIJALVA GDOB:1945 ( 80 yo F)Acc No.[id number]:04/28/2025 Patient: Kari GASCA Milvia G :1945 A ge:80 Y S ex:Female Address:[address] [place] [address] [address], [place] [address] * Refills Refill Acyclovir Tablet, 400 MG, 180 Tablet, TAKE 1 TABLET TWICE A DAY, 90, Refills=2 * true * Date: Generated for [address]/Андрей/Amiraitting on: 0 06/29/2025 06:13 PM EDT
--- OUTSIDE RECORDS SUMMARY | 2025-05-14 06:15 | XMS_ITS ---
Author Organization [facility] Address [address] [place] [address] [place] [address] Care Team Providers Care Ict Quality Assurance Engineer Name Role Phone Anil Vargas Primary Care Provider REASON FOR VISIT DO NOT CHANGE tsh and b12 only Encounters Encounter Location Date Provider Diagnosis [facility] [address] [place] [address] 05/14/2025 Anil Vargas Plan Of Treatment Next Appt Details Provider Name:Anil Vargas, 09/06/2025 02:00:00 PM, [address] [place], [address], Progress Notes * Milvia GRIJALVA GDOB:1945 ( 80 yo F)Acc No.[id number]:05/14/2025 Progress Note Patient: Milvia CAMPO Provider: Jayro Vargas MD :1945 A ge:80 Y S ex:Female Date:05/14/2025 Address:[address] [place] [address], [address], [id number] Subjective: * Chief Complaints: * 1 . DO NOT CHANGE tsh and b12 only. * Medical History: Objective: * Vitals: Assessment: Plan: * Treatment: * Images: * Electronic signature of Delores Llanos.D., [id number] on 06/29/2025 at 06:08 PM EDT. This office note may have dictated by Patterns software. Sign off status: Pending * Provider: Jayro Vargas MD Date: 0 05/14/[address]/Андрей/Christiano on: 0 06/29/2025 06:08 PM EDT
--- OUTSIDE RECORDS SUMMARY | 2025-05-15 04:00 | XMS_ITS ---
Author Organization [facility] Address [address] [place] [address] Care Team Providers Care Personal Fitness Manager Name Role Phone Gareth Gusman MD Primary Care Provider Nathaniel Roberts Unavailable [phone] Yakov Del Real, Tonie Unavailable Unavailable Migration, Provider Unavailable Unavailable REASON FOR VISIT EMR-[facility] Encounters Encounter Location Date Provider Diagnosis [facility] [address] [place] [address] [address] [place] [address] 05/15/2025 Provider Migration Plan Of Treatment Medication Medication Name Sig Start Date Stop Date Notes Aspercreme (lidocaine HCl) 4 % topical 1 crea as directed PRN 11/22/2022 Medication discontinued during reconciliation by Lexi Lopez on November 11:43 AM *Reorder from [employer] for eRx and Interaction Alerts* Acyclovir 800 MG Tablet Oral Add'l Sig 03/24/2019 Medication discontinued by Maldonado Harrington on Sunday, March 24, 2019 10:49 AM Simvastatin 20 MG Tablet Oral Daily 11/22/2022 Medication discontinued during reconciliation by Lexi Lopez on November 11:32 AM Flecainide Acetate 150 mg Tablet Oral BID 11/22/2022 Medication discontinued during reconciliation by Lexi Lopez on November 11:32 AM Euthyrox 100 mcg tablet 1 tab oral 09/19/2020 Medication discontinued during reconciliation by Rigo Mcneil on Saturday, September 19, 2020 9:54 AM *Reorder from [employer] for eRx and Interaction Alerts* Omeprazole 20 MG Capsule Delayed Release Oral Add'l Sig 09/19/2020 Medication discontinued during reconciliation by Rigo Mcneil on Saturday, September 19, 2020 9:53 AM Levothyroxine Sodium 50 MCG Tablet Oral Add'l Sig 03/24/2019 Medication discontinued by Maldonado Harrington on Sunday, March 24, 2019 10:49 AM Ventolin HFA 108 (90 Base) MCG/ACT Aerosol Solution Inhalation BID 03/24/2019 Medication discontinued by Maldonado Harrington on Sunday, March 24, 2019 10:49 AM Albuterol Sulfate (2.5 MG/3ML) 0.083% Nebulization Solution Inhalation BID 03/24/2019 Medication discontinued by Maldonado Harrington on Sunday, March 24, 2019 10:49 AM calcium 600 mg tablet tab oral 04/21/2015 Medication discontinued by Maldonado Harrington on April 3:33 PM *Reorder from [employer] for eRx and Interaction Alerts* Ranitidine HCl 150 MG Capsule Oral Add'l Sig 03/24/2019 Medication discontinued by Maldonado Harrington on Sunday, March 24, 2019 10:49 AM *Reorder from [employer] for eRx and Interaction Alerts* Singulair 10 MG Tablet Oral Daily 11/22/2022 Me dication discontinued during reconciliation by Lexi Lopez on November 11:32 AM Calcium 1,200 mgcalcium -1,000 unit Tablet Chewable Oral Add'l Sig 03/24/2019 Medication discontinued by Maldonado Harrington on Sunday, March 24, 2019 10:49 AM *Pick strength-form from [employer] for eRX* Rosuvastatin Calcium 20 MG Tablet Oral Daily 11/22/2022 Medication discontinued during reconciliation by Lexi Lopez on November 11:32 AM Voltaren 1% Gel Apply 2-4gm topically to affected site four times a day Transdermal as directed 04/05/2017 03/24/2019 Medication discontinued by Maldonado Harrington on Sunday, March 24, 2019 10:49 AM aspirin 81 mg tablet 1 tab as directed Add'l Sig 09/19/2020 Medication discontinued during reconciliation by Rigo Mcneil on Saturday, September 19, 2020 9:53 AM *[facility] and Interaction Alert[facility]* Euthyrox 112 mcg tablet 1 tab by mouth Daily 11/22/2022 Medication discontinued during reconciliation by Lexi Lopez on November 11:32 AM *[facility] and Interaction Alerts* ProAir HFA 108 (90 Base) MCG/ACT Aerosol Solution Inhalation Add'l Sig 04/04/2017 Medication discontinued by Maldonado Harrington on March 12:14 PM *[facility] and Interaction Alerts* dilTIAZem HCl 120 MG Tablet Oral Add'l Sig 09/19/2020 Medication discontinued during reconciliation by Rigo Mcneil on Saturday, September 19, 2020 9:54 AM Synthroid 50 MCG Tablet Oral DAILY 04/04/2017 Medication discontinued by Maldonado Harrington on March 12:12 PM Progress Notes * Milvia GRIJALVA GDOB:1945 ( 80 yo F)Acc No.[id number]:05/15/2025 Patient: Kari Milvia GASCA :1945 A ge:80 Y S ex:Female Address:[address] [place] [address] * Refills Stop Calcium Tablet Chewable, 1,200 mgcalcium -1,000 unit, Oral, Add'l Sig Stop Rosuvastatin Calcium Tablet, 20 MG, Oral, Daily Stop Voltaren Gel, 1%, Transdermal, 5, Apply 2-4gm topically to affected site four times a day, as directed Stop Aspercreme (lidocaine HCl) 4 % topical crea, 1, as directed, PRN Stop Albuterol Sulfate Nebulization Solution, (2.5 MG/3ML) 0.083%, Inhalation, BID Stop Omeprazole Capsule Delayed Release, 20 MG, Oral, Add'l Sig Stop Ventolin HFA Aerosol Solution, 108 (90 Base) MCG/ACT, Inhalation, BID Stop Voltaren Gel, 1%, Transdermal, 5, Apply 2-4gm topically to affected site four times a day, as directed Stop Acyclovir Tablet, 800 MG, Oral, Add'l Sig Stop Singulair Tablet, 10 MG, Oral, DAILY Stop aspirin 81 mg tablet tab, 1, as directed, Add'l Sig Stop Euthyrox 112 mcg tablet tab, 1, by mouth, Daily Stop Flecainide Acetate Tablet, 150 mg, Oral, BID Stop Simvastatin Tablet, 20 MG, Oral, Daily Stop Voltaren Gel, 1%, Transdermal, 5, Apply 2-4gm topically to affected site four times a day, as directed Stop Euthyrox 100 mcg tablet tab, 1, oral Stop Levothyroxine Sodium Tablet, 50 MCG, Oral, Add'l Sig Stop aspirin 81 mg tablet tab, 1, as directed, DAILY Stop ProAir HFA Aerosol Solution, 108 (90 Base) MCG/ACT, Inhalation, Add'l Sig Stop Ranitidine HCl Capsule, 150 MG, Oral, Add'l Sig Stop Singulair Tablet, 10 MG, Oral, Daily Stop calcium 600 mg tablet tab, oral Stop dilTIAZem HCl Tablet, 120 MG, Oral, Add'l Sig Stop Synthroid Tablet, 50 MCG, Oral, DAILY Subjective: * Chief Complaints: * E MR-Sachin * * Date:
--- OUTSIDE RECORDS SUMMARY | 2025-05-16 04:00 | XMS_ITS ---
Author Organization [facility] Address [address] [place] [address] Care Team Providers Care Secondary School Teacher Librarian Name Role Phone Gareth Gusman MD Primary Care Provider Unavaila Nathaniel Pennington Unavailable [phone] Yakov Del Real, Tonie Unavailable Unavailable Migration, Provider Unavailable Unavailable Allergies Allergen (clinical drug ingredient) Drug/Non Drug Allergy documented on EMR Reaction Allergy Type Onset Date Status cefprozil Cefprozil Unknown Drug Allergy 11/22/2022 Active Levaquin Unknown Drug Allergy 11/21/2022 Active REASON FOR VISIT EMR-[facility] Medications Medication SIG (Take, Route, Frequency, Duration) Notes Start Date End Date Status Telmisartan 20 mg Tablet Oral Add'l Sig Active Aspercreme (lidocaine HCl) 4 % topical 1 crea as directed Add'l Sig *Reorder from [employer] for eRx and Interaction Alerts* Active Valium 5 MG Tablet Take 1 po 1h prior to MRI, then 1 po 1/2h prior to MRI Oral as directed 07/31/2023 Active Medrol 4 MG Tablet Therapy Pack Oral as directed 11/22/2022 Active Vitamin C 500 mg Tablet Oral Add'l Sig Active ProAir HFA 108 (90 Base) MCG/ACT Aerosol Solution Inhalation Add'l Sig *Reorder from [employer] for eRx and Interaction Alerts* Active Sertraline HCl 25 MG Tablet Oral Add'l Sig Active Tylenol Extra Strength 500 MG Tablet Oral Q4h Active Biofreeze 4 % Gel External Add'l Sig *Pick strength-form from [employer] for eRX* Active Flecainide Acetate 100 mg Tablet Oral Add'l Sig Active Protonix 40 mg Tab 1 TbEC by mouth Add'l Sig *Reorder from [facility] for eRx and Interaction Alerts* Active Voltaren 1% Gel Apply 2-4gm topically to affected site four times a day Transdermal as directed The medication was removed during an external session by Sanjuanita Lam on 04/05/2017 3:00:57 PM 07/12/2016 Active Lidocaine 5 % Cream External Add'l Sig *Pick strength-form from [facility] for eRX* Active Levothyroxine Sodium 100 MCG Tablet Oral Add'l Sig Active Eliquis 5 MG Tablet Oral BID Active zinc sulfate 50 mg zinc (220 mg) tablet 1 tab by mouth Add'l Sig *Reorder from [facility] for eRx and Interaction Alerts* Active Calcium 600 + D(3) 600 mg-10 mcg (400 unit) tablet 1 tab by mouth Add'l Sig *Reorder from [facility] for eRx and Interaction Alerts* Active Acyclovir 400 MG Tablet Oral BID Active Rosuvastatin Calcium 10 MG Tablet Oral Add'l Sig Active Trelegy Ellipta 100-62.5-25 mcg Aerosol Powder Breath Activated Inhalation Add'l Sig *Pick strength-form from [facility] for eRX* Active Vitamin D3 50 mcg (2,000 unit) capsule 1 cap by mouth Add'l Sig *Reorder from [facility] for eRx and Interaction Alerts* Active Montelukast Sodium 10 MG Tablet Oral QHS Active Albuterol Sulfate (2.5 MG/3ML) 0.083% Nebulization Solution Inhalation Add'l Sig Active Cyclobenzaprine HCl 10 MG Tablet Oral BID Active Acetaminophen-Codeine #3 300-30 MG Tablet prn pain Oral Q6h *Reorder from [facility] for eRx and Interaction Alerts* 11/22/2022 Active Encounters Encounter Location Date Provider Diagnosis [facility] [place] [address] 05/16/2025 Provider Migration Plan Of Treatment No Information Progress Notes * Milvia GRIJALVA GDOB:1945 ( 80 yo F)Acc No.[id number]:05/16/2025 Patient: Kari Milvia GASCA :1945 A ge:80 Y S ex:Female Address:[address] [place] [address], [address] [address], [place], [address] Subjective: * Chief Complaints: * E MR-Sachin * Medications: T akingAlbuterol Sulfate (2.5 MG/3ML) 0.083% Nebulization Solution Inhalation Add'l Sig Rosuvastatin Calcium 10 MG Tablet Oral Add'l Sig Flecainide Acetate 100 mg Tablet Oral Add'l Sig Telmisartan 20 mg Tablet Oral Add'l Sig Protonix 40 mg Tab 1 TbEC by mouth Add'l Sig , Notes to Pharmacist: *Reorder from [facility] for eRx and Interaction Alerts*Voltaren 1% Gel Apply 2-4gm topically to affected site four times a day Transdermal as directed , Notes to Pharmacist: The medication was removed during an external session by Sanjuanita Lam on 04/05/2017 3:00:57 PMMedrol 4 MG Tablet Therapy Pack Oral as directed Valium 5 MG Tablet Take 1 po 1h prior to MRI, then 1 po 1/2h prior to MRI Oral as directed Vitamin D3 50 mcg (2,000 unit) capsule 1 cap by mouth Add'l Sig , Notes to Pharmacist: *Reorder from [facility] for eRx and Interaction Alerts*Vitamin C 500 mg Tablet Oral Add'l Sig Aspercreme (lidocaine HCl) 4 % topical 1 crea as directed Add'l Sig , Notes to Pharmacist: *Reorder from [facility] for eRx and Interaction Alerts*Lidocaine 5 % Cream External Add'l Sig , Notes to Pharmacist: *Pick strength-form from [facility] for eRX*ProAir HFA 108 (90 Base) MCG/ACT Aerosol Solution Inhalation Add'l Sig , Notes to Pharmacist: *Reorder from [facility] for eRx and Interaction Alerts*Tylenol Extra Strength 500 MG Tablet Oral Q4h Sertraline HCl 25 MG Tablet Oral Add'l Sig Montelukast Sodium 10 MG Tablet Oral QHS Biofreeze 4 % Gel External Add'l Sig , Notes to Pharmacist: *Pick strength-form from [facility] for eRX*zinc sulfate 50 mg zinc (220 mg) tablet 1 tab by mouth Add'l Sig , Notes to Pharmacist: *Reorder from [facility] for eRx and Interaction Alerts*Acetaminophen-Codeine #3 300-30 MG Tablet prn pain Oral Q6h , Notes to Pharmacist: *Reorder from [facility] for eRx and Interaction Alerts*Levothyroxine Sodium 100 MCG Tablet Oral Add'l Sig Acyclovir 400 MG Tablet Oral BID Calcium 600 + D(3) 600 mg-10 mcg (400 unit) tablet 1 tab by mouth Add'l Sig , Notes to Pharmacist: *Reorder from [facility] for eRx and Interaction Alerts*Voltaren 1% Gel Apply 2- 4gm topically to affected site four times a day Transdermal as directed Trelegy Ellipta 100-62.5-25 mcg Aerosol Powder Breath Activated Inhalation Add'l Sig , Notes to Pharmacist: *Pick strength-form from [facility] for eRX*Medrol 4 MG Tablet Therapy Pack Oral as directed Cyclobenzaprine HCl 10 MG Tablet Oral BID Eliquis 5 MG Tablet Oral BID Voltaren 1% Gel Apply 2-4gm topically to affected site four times a day Transdermal as directed Taking Albuterol Sulfate (2.5 MG/3ML) 0.083% Nebulization Solution Inhalation Add'l Sig Taking Rosuvastatin Calcium 10 MG Tablet Oral Add'l Sig Taking Flecainide Acetate 100 mg Tablet Oral Add'l Sig Taking Telmisartan 20 mg Tablet Oral Add'l Sig Taking Protonix 40 mg Tab 1 TbEC by mouth Add'l Sig , Notes to Pharmacist: *Reorder from [facility] for eRx and Interaction Alerts*Taking Voltaren 1% Gel Apply 2-4gm topically to affected site four times a day Transdermal as directed , Notes to Pharmacist: The medication was removed during an external session by Sanjuanita Lam on 04/05/2017 3:00:57 PMTaking Medrol 4 MG Tablet Therapy Pack Oral as directed Taking Valium 5 MG Tablet Take 1 po 1h prior to MRI, then 1 po 1/2h prior to MRI Oral as directed Taking Vitamin D3 50 mcg (2,000 unit) capsule 1 cap by mouth Add'l Sig , Notes to Pharmacist: *Reorder from [facility] for eRx and Interaction Alerts*Taking Vitamin C 500 mg Tablet Oral Add'l Sig Taking Aspercreme (lidocaine HCl) 4 % topical 1 crea as directed Add'l Sig , Notes to Pharmacist: *Reorder from [facility] for eRx and Interaction Alerts*Taking Lidocaine 5 % Cream External Add'l Sig , Notes to Pharmacist: *Pick strength-form from [facility] for eRX*Taking ProAir HFA 108 (90 Base) MCG/ACT Aerosol Solution Inhalation Add'l Sig , Notes to Pharmacist: *Reorder from [facility] for eRx and Interaction Alerts*Taking Tylenol Extra Strength 500 MG Tablet Oral Q4h Taking Sertraline HCl 25 MG Tablet Oral Add'l Sig Taking Montelukast Sodium 10 MG Tablet Oral QHS Taking Biofreeze 4 % Gel External Add'l Sig , Notes to Pharmacist: *Pick strength-form from [facility] for eRX*Taking zinc sulfate 50 mg zinc (220 mg) tablet 1 tab by mouth Add'l Sig , Notes to Pharmacist: *Reorder from [facility] for eRx and Interaction Alerts*Taking Acetaminophen-Codeine #3 300-30 MG Tablet prn pain Oral Q6h , Notes to Pharmacist: *Reorder from [facility] for eRx and Interaction Alerts*Taking Levothyroxine Sodium 100 MCG Tablet Oral Add'l Sig Taking Acyclovir 400 MG Tablet Oral BID Taking Calcium 600 + D(3) 600 mg-10 mcg (400 unit) tablet 1 tab by mouth Add'l Sig , Notes to Pharmacist: *Reorder from [facility] for eRx and Interaction Alerts*Taking Voltaren 1% Gel Apply 2-4gm topically to affected site four times a day Transdermal as directed Taking Trelegy Ellipta 100-62.5-25 mcg Aerosol Powder Breath Activated Inhalation Add'l Sig , Notes to Pharmacist: *Pick strength-form from [facility] for eRX*Taking Medrol 4 MG Tablet Therapy Pack Oral as directed Taking Cyclobenzaprine HCl 10 MG Tablet Oral BID Taking Eliquis 5 MG Tablet Oral BID Taking Voltaren 1% Gel Apply 2-4gm topically to affected site four times a day Transdermal as directed * Allergies: C efprozil: Allergy - Onset Date 11/22/2022Levaquin: Allergy - Onset Date 11/21/2022 * * Date:
--- OUTSIDE RECORDS SUMMARY | 2025-06-09 09:30 | XMS_ITS | Continuity of Care Document ---
Author Organization [facility] Address [address] [place] [address] Phone Care Team Providers Care Crystallography Teacher Name Role Phone Sharon Peng PTA Unavailable Unavailable Procedures Procedure Date Therapeutic Activities Neuromuscular Re-Ed Therapeutic Exercise Therapeutic Activities Neuromuscular Re-Ed Therapeutic Exercise Therapeutic Activities Neuromuscular Re-Ed Therapeutic Exercise Manual Therapy Therapeutic Activities Neuromuscular Re-Ed Therapeutic Exercise Manual Therapy Therapeutic Activities Neuromuscular Re-Ed Therapeutic Exercise Manual Therapy Therapeutic Activities Neuromuscular Re-Ed Therapeutic Exercise Doc neg elder mal no plan PRES/ABSN URINE INCON ASSESS PT Evaluation Moderate Complexity Therapeutic Activities Therapeutic Exercise Manual Therapy Advance Directives Directive Yes / No Effective Date File Name No Information Encounters Encounter Description Practice Location Reason(s) For Visit Diagnoses Date Provider Providers Copied on Encounter [facility], [address], [place], [place], [id number], [place] tel:[phone] Julian Moore No Information Danish Sharon. . Referring Provider: [facility] [address], [place], [address]. tel:[phone] [place] [address] [facility], [place], [place], [id number], tel:[phone] No Information Danish Sharon. . Referring Provider: [facility] [address], [place], [address]. tel:[phone] [place] [address], [address] [place] [address] [facility], [place], [place], [id number], [place] tel:[phone] [place] [address] No Information Danish Sharon. . Referring Provider: [facility] [address], [place], [address]. tel:[phone] [place] [address] [facility], [place], [id number], [place] tel:[phone] No Information Danish Sharon. . Referring Provider: [facility] [address], [place], [address]. tel:[phone] [place] [address] [place] [address] [place] [address], [id number], tel:[phone] Julian [address] No Information Danish Sharon. . Referring Provider: [facility] [address], [place], [address]. tel:[phone] [place] [address] [place] [facility] [place], [id number], tel:[phone] Julian [address] No Information Danish Sharon. . Referring Provider: [facility] [address], [place], [address]. tel:[phone] [place] [address] [address], [place], [place], [id number], [place] tel:[phone] Julian [address] [facility] No Information Josh Jha. . Referring Provider: Glod Condon[address], [place], [address]. tel:[phone] Family History Family Member Type Diagnosis Age At Onset No Information Payers Payer name Insurance type Covered constitution party ID Authorcatherine paredes(s) Medicare [place] Part A [id number] [facility] [id number] Social History Type Description Quantity Date Captured Comments Sex Female Smoking Status No Information Chief Complaint And Reason For Visit No Information Reason For Referral Reason For Referral No Information Plan Of Treatment Date Type Action Status Referral Ordered: Referrals: Specialist. Evaluate and Treat (related to Adjustment disorder with depressed mood) ordered Referral Ordered: Depression: Depression management program timeframe: 1 Day. (related to Depression) ordered Referral Ordered: Clinical Psychology (related to Depression) ordered Referral Ordered: Referrals: Specialist. Evaluate and Treat (related to Adjustment disorder with depressed mood) ordered Referral Ordered: Depression: Depression management program timeframe: 1 Day. (related to Depression) ordered Referral Ordered: Clinical Psychology (related to Depression) ordered History Of Present Illness Encounter Date Complaint History Of Prese nt Illness No Information Functional Status Date Functional Assessmen t No Information Instructions Date Instruction Additional Infor niko Kegel exercises were explained t o the patient. Assessments Type Assessment Date No Information Patient Care Teams Name Effective Dates (start - stop) Status Members No Information
[2025-06-29 16:21] VITALS: BP 144/76; PULSE 60; RESP 18; TEMP 36.5; O2SAT 97
--- NOTE | 2025-06-29 17:02 | ED_ITS ---
HPI - General Adult General Chief complaint: Eye Problems Stated complaint: Eye Problem Source: patient Mode of arrival: ambulatory Limitations: no limitations History of Present Illness HPI narrative: Patient presents for evaluation of bilateral eye irritation for last 6 days. She reports itching, tearing, and redness surrounding the eyes is result of rubbing frequently. She denies any visual disturbance, thick drainage or matting. She does not wear contacts wears glasses to read. [place] and states her symptoms started after she arrived to this area to visit. She has tried taking cetirizine and also purchased some OTC drops without much improvement. Related Data Home Medications ?Medication ?Instructions ?Recorded ?Confirmed ?Last Taken ?Type acyclovir 400 mg tablet mg 02/24/25 Unknown History apixaban 5 mg tablet (Eliquis) mg 02/24/25 Unknown Hi story flecainide 100 mg tablet mg 02/24/25 Unknown History hmcmgegsjxd-esaegbwqd-unkujtsz inhalation 02/24/25 Un known History pantoprazole 40 mg tablet,delayed mg PO 02/24/25 Unkn own History release rosuvastatin .ROUTE 02/24/25 Unknown His tory albuterol sulfate 90 mcg/actuation inhalation 06/29/25 Unknown History aerosol inhaler levothyroxine 75 mcg tablet mcg 06/29/25 Unknown Hist ory tramadol 37.5 mg-acetaminophen 325 tablet 06/29/25 Un known History mg tablet Allergies Allergy/AdvReac Type Severity Reaction Status Date / Time amoxicillin (From Augmentin) Allergy Unknown Unknown Verified 02/24/25 14:13 cefprozil Allergy Unknown Unknown Verified 02/24/25 14:13 clavulanic acid (From Allergy Unknown Unknown Verified 02/24/25 14:13 Augmentin) levofloxacin (From Levaquin) Allergy Unknown Unknown Verified 02/24/25 14:13 Review of Systems Review of Systems: CONSTITUTIONAL: Denies fever, chills, or sweats. EYES:Reports itching and tearing from both eyes ENT: Denies rhinorrhea, congestion, sore throat, or otalgia. CARDIOVASCULAR: Denies chest pain, palpitations, or edema. RESPIRATORY: Denies cough or dyspnea. GASTROINTESTINAL: Denies abdominal pain, nausea, vomiting, or diarrhea. GENITOURINARY: Denies dysuria or hematuria. SKIN: Reports redness surrounding both eyes as a results of rubbing MUSCULOSKELETAL: Denies back pain, joint pain, or myalgia. NEUROLOGIC: Denies headache, numbness, dizziness, or weakness. PSYCHIATRIC: Denies anxiety or depression. [facility] Past Medical History Medical History Hypothyroid Hyperlipidemia GERD (gastroesophageal reflux disease) Atrial fibrillation COPD (chronic obstructive pulmonary disease) Surgical History Surgical History History of lung surgery Family History Family History Mother Family history non-contributory Social History Social History Gender identity (if verbalized by the patient): Female Spiritual care concerns: No Exam Narrative: GENERAL: Well-appearing, well-nourished, and in no acute distress. HEAD: Normocephalic, atraumatic. EYES: There is tearing from both eyes. PERRLA and EOMI. ENT: Nares clear, no rhinorrhea or epistaxis. Mucous membranes moist. Oropharynx without tonsillar hypertrophy exudate or other lesions. Bilateral TMs pearly nathan nonbulging NECK: Supple. No adenopathy or masses. No carotid bruits or JVD CHEST: Clear to auscultation. No respiratory distress. No wheezes rales or rhonchi HEART: Regular rate and rhythm. No murmur heard. Normal peripheral pulses. ABDOMEN: Soft, nontender, nondistended, normal active bowel sounds. EXTREMITIES: Normal range of motion. No edema. SKIN: There is mild erythema to the bilateral periorbital regions. Warm, dry, no rash. NEURO: No focal deficits. Alert and oriented x3. PSYCH: Normal mood and affect. Course Course Emergency Course: This is an 80-year-old female who presented for evaluation of eye itching and tearing since arriving here from out of state. Her exam is consistent allergic symptoms. She was a bit hesitant to accept this diagnosis as she states she is already using allergy medication. Will change cetirizine to claritiin and add Naphcon. In the event she does have bacterial conjunctivitis will add erythromycin. Follow-up with primary provider. Go to the ER for worsening symptoms. Patient in agreement with plan care. Level of Care: Express Care Visit Vital Signs Vital signs: Vital Signs Temperature 36.5 C 06/29/25 16:21 Pulse Rate 60 06/29/25 16:21 Respiratory Rate 18 06/29/25 16:21 Blood Pressure 144/76 H 06/29/25 16:21 Pulse Oximetry 97 06/29/25 16:21 Oxygen Delivery Room Air 06/29/25 16:21 Temperature 36.5 C 06/29/25 16:21 Pulse Rate 60 06/29/25 16:21 Respiratory Rate 18 06/29/25 16:21 Blood Pressure 144/76 H 06/29/25 16:21 Pulse Oximetry 97 06/29/25 16:21 Oxygen Delivery Room Air 06/29/25 16:21 Medical Decision Making Vital Signs Vital Signs: Vital Signs Temperature 36.5 C 06/29/25 16:21 Pulse Rate 60 06/29/25 16:21 Respiratory Rate 18 06/29/25 16:21 Blood Pressure 144/76 H 06/29/25 16:21 Pulse Oximetry 97 06/29/25 16:21 Oxygen Delivery Room Air 06/29/25 16:21 Temperature 36.5 C 06/29/25 16:21 Pulse Rate 60 06/29/25 16:21 Respiratory Rate 18 06/29/25 16:21 Blood Pressure 144/76 H 06/29/25 16:21 Pulse Oximetry 97 06/29/25 16:21 Oxygen Delivery Room Air 06/29/25 16:21 Discharge Plan Discharge Clinical Impression: Conjunctivitis Patient Disposition: Home Condition: Stable Instructions: Antibiotic Form, Conjunctivitis (ED) Additional Instructions: IF YOUR INSURANCE DOES NOT COVER CLARITIN OR NAPHCON, PLEASE PURCHASE OVER THE COUNTER Patient Language: Lebanese Prescriptions: New erythromycin 5 mg/gram (0.5 %) ointment 0.5 inch EACH EYE QID Qty: 3.5 0RF Naphcon-A 0.025-0.3 % drops 2 drp EACH EYE QID PRN (Reason: allergy symptoms) Qty: 15 0RF loratadine [Claritin] 10 mg tablet 10 mg PO DAILY PRN (Reason: allergic symptoms) Qty: 15 0RF No Action acyclovir 400 mg tablet pantoprazole 40 mg tablet,delayed release (DR/EC) PO flecainide 100 mg tablet Eliquis 5 mg tablet rosuvastatin .ROUTE wttyieaaocm-hrqpjkujd-jjrienpe [Trelegy Ellipta] inhalation tramadol-acetaminophen 37.5-325 mg tablet levothyroxine 75 mcg tablet albuterol sulfate 90 mcg/actuation HFA aerosol inhaler INHALATION Follow-up/Referrals: Naseem Leon MD [Physician, Family Practice] Time of Disposition: 17:00
--- OUTSIDE RECORDS SUMMARY | 2025-06-29 17:09 | XMS_ITS | Clinical Summary ---
Author Organization [facility] Address [address] [place] [address] Care Team Providers Care Wholesale Agronomist Name Role Phone Gareth Gusman MD Primary Care Provider [phone] Allergies Active Allergy Reactions Criticality Noted Date [...] 9:00 AM EDT Height 165.1 cm (5' 5) 05/28/2024 9:00 AM EDT Body Mass Index 21.63 05/28/2024 9:00 AM EDT Plan of Treatment Not on file Insurance [address] [place] [address] MEDICARE [facility] Care Teams Wholesale Agronomist Relationship Specialty Start Date End Date Gareth Gusman MD [address] [facility] [place] [address] PCP - General Internal Medicine 05/28/24
--- OUTSIDE RECORDS SUMMARY | 2025-06-29 17:09 | XMS_ITS | Patient Health Record ---
Author Organization [facility] Address [address] [facility] [place] [id number] Care Team Providers Care Final Inspector Name Role Phone Candis Reyes Md Unavailable Unavailable Reason For Referral No Information Medications Medication SIG (Take, Route, Frequency, Duration) Notes Start Date End Date Status Lodine 400 MG 1 *please review for potential update for e-prescription and drug interaction check* DX: 727.06 stevew1 (06/19/2006) - for pain 06/19/2006 Active Premarin 0.625 MG 1 *please review for potential update for e-prescription and drug interaction check* 06/13/2006 Active Social History Social History Additional Details Category Social Info Options Details Migrated Social History Migrated Social History SOCIAL HISTORY (ALCOHOL): Does not give any significant history of alcohol usage, ProblemStatus: Active, SOCIAL HISTORY (SMOKING): Stopped using cigarettes many years ago, ProblemStatus: Active Problems Problem Type SNOMED Code ICD Code Onset Dates Problem Status W/U Status Risk Notes Problem TENOSYNOVITI S, FOOT/ANKLE (727.06) (727.06) 06/13/2006 Active confirmed Plan Of Treatment No Information
--- OUTSIDE RECORDS SUMMARY | 2025-06-29 17:11 | XMS_ITS | Patient Health Record ---
Author Organization [facility] Address [address] [place] [address] Care Team Providers Care Rat Breeder Name Role Phone Gareth Gusman MD Primary Care Provider Toyin Leyva Unavailable [phone] Reason For Referral No Information Medications Medication SIG (Take, Route, Frequency, Duration) Notes Start Date End Date Status Aspirin Active Flonase Allergy Relief 50 MCG/ACT 1 spray in each nostril Nasally Once a day; Duration: 30 day(s) 04/09/2017 Active Vitamin C Active Ranitidine Active Albuterol Sulfate Ac tive Flonase Active Benadryl Active Astelin Active Mandy Allergy Acti ve Prednisone Active Albuterol Sulfate HFA Active Singulair Active Acyclovir Active Cetirizine HCl Activ e Calcium Active Levothyroxine Sodium Active Problems Problem Type SNOMED Code ICD Code Onset Dates Problem Status W/U Status Risk Notes Problem Former smoker (9697948) Former smoker (Z87.891) Active confirmed Problem Chronic rhinitis (41727672) Chronic rhinitis (J31.0) Active confirmed Problem Chronic sinusitis (62160221) Chronic sinusitis, unspecified (J32.9) Active confirmed Problem Gastroesophageal reflux disease (285196340) (GERD)Gastro-e sophageal reflux disease without esophagitis (K21.9) Active confirmed Problem Chronic bronchitis (44388701) Chronic bronchitis, unspecified chronic bronchitis type (J42) Active confirmed Plan Of Treatment No Information Insurance Providers Payer Name Payer Address Payer Phone Subscriber Number Group Number Insured Name Patient Relationship to Insured Coverage Start Date Coverage End Date [place] [address] [address] [place] [id number] [phone] [id number] EyerMilvia Self - patient is the insured [facility] [place] [address] [id number] EyerMilvia Self - patient is the insured Medical (General) History Medical History History ICD Code Thyroid nodules Osteopena Genital Herpes Surgical History Surgery Date(Month/Year) Neck Lift Face Lift Kidney Stones Hysterectomy 1974 Hospitalization History Reason Date(Month/Year) See Surgical Hx
--- OUTSIDE RECORDS SUMMARY | 2025-06-29 17:11 | XMS_ITS | Patient Health Record ---
Author Organization [facility] Address [address] [place], [place] [address] Care Team Providers Care Desk Officer Name Role Phone Gareth Gusman MD Primary Care Provider TAMY Robles [phone] Allergies Allergen (clinical drug ingredient) Drug/Non Drug Allergy documented on EMR Reaction Allergy Type Onset Date Status cefprozil Cefprozil Unknown Drug Allergy Active Levaquin Unknown Drug Allergy Active Results Component Value Reference Range Notes [email or web address].ONSITE Reviewed date:03/04/2025 12:23:58 PM Interpretation: Performing Lab: Notes/Report: Reason For Referral No Information Medications Medication [...] Problem Status W/U Status Risk Notes Problem 091450278 Osteopenia (M85.80) Active confirmed Problem Herpes simplex of female genitalia (064632232) Herpes genitalis in women (A60.9) Active confirmed Problem 756686749 History of endometrial cancer (Z85.42) Active confirmed Problem 13173318 Post-menopausal atrophic vaginitis (N95.2) Active confirmed Problem 154109123 Hypothyroidism, acquired (E03.9) Active confirmed Encounters Encounter Location Date Provider Diagnosis [facility] [address] [place] [phone] 03/03/2025 TAMY HAIR Encounter for screening mammogram for malignant neoplasm of breast Z12.31 [facility] [address] [place] [id number] 04/28/2025 TAMY HAIR Herpes genitalis in women A60.9 Assessments Encounter Date Diagnosis (ICD Code) Assessment Notes Treatment Notes Treatment Clinical Notes Section Notes 03/03/2025 Encounter for screening mammogram for malignant neoplasm of breast (ICD-10 - Z12.31) 04/28/2025 Herpes genitalis in women (ICD-10 - A60.9) Plan Of Treatment Next Appt Details Provider Name:TAMY PEREZ, 04/07/2026 12:45:00 PM, [address] [place] [address], [address] [place] [address], [phone], Provider Name:TAMY PEREZ, 04/07/2026 01:00:00 PM, [address] [place] [address], [address], [phone], Insurance Providers Payer Name Payer Address Payer Phone Subscriber Number Group Number Insured Name Patient Relationship to Insured Coverage Start Date Coverage End Date [place] [employer] PART B [address] [place] [phone] [id number] EyerMilvia Self - patient is the insured [address] [phone] [id number] EyerMilvia Self - patient is the insured Medical (General) History Medical History History ICD Code herpes - type II - Vulvar chronic sinusitis colonoscopy - 2011, Margot uterine cancer versus cervic al cancer-patient is unsure. Thinks it may not have been true cancer. age 34 osteopenia-Joe;2014, 2016-Naseem Uterus, Endometrial Cancer Breast, Other sign and symptom in breast hypothyroid A. fib- Harrison, anticoagulated 2018, K nopf now spontaneous [id number] tube , pleurodesis 2021 IM-Naseem Surgical History Surgery Date(Month/Year) total thyroidectomy-Margot 2019 hysterectomy, abdominal 1975
--- OUTSIDE RECORDS SUMMARY | 2025-06-29 17:12 | XMS_ITS | Clinical Summary ---
Author Organization [facility] Address [address] [place] [phone] Phone Care Team Providers Care Pot Feeder Name Role Phone Unavailable Primary Care Provider [...] 2:45 PM CDT Height 165.1 cm (5' 5) 05/10/2019 2:45 PM CDT Body Mass Index 22.96 05/10/2019 2:45 PM CDT Plan of Treatment Health Maintenance Due Date Last Done Comments Hepatitis C Virus (HCV) Screening 1945 TdaP Immunization 1945 Pneumococcal Immunization (5 0+ years) (1 of 1 - PCV) 01/18/1994 Zoster Immunization (1 of 2) 01/18/1994 Respiratory Syncytial Virus (RSV) Immunization (Adult) (1 - 1-dose 75+ series) 01/18/2019 SARS-COV-2 Immunization (1 - 2023- season) 2024 Influenza Immunization (#1) 2025 Hepatitis B Immunization Aged Out No longer eligible based on patient's age to complete this topic Human Papillomavirus (HPV) Immunization Aged Out No longer eligible b ased on patient's age to complete this topic Meningococcal Immunization (ACWY) Aged Out No longer eligible based on patient's age to complete this topic Rotavirus Immunization Aged Out No lo nger eligible based on patient's age to complete this topic Insurance MEDICARE
--- OUTSIDE RECORDS SUMMARY | 2025-06-29 17:12 | XMS_ITS | Patient Health Record ---
Author Organization [facility] Address [address] [place] [address] Care Team Providers Care Bullet Slug Casting Machine Operator Name Role Phone QUYNH LUCIA Unavailable [phone] Allergies Allergen (clinical drug ingredient) Drug/Non Drug [...] day 08/10/2024 Active Rosuvastatin Calcium 10 MG Oral; Duration: 90 Days Active Telmisartan 20 MG Oral; Duration: 90 Days Active Eliquis 5 MG Oral; Duration: 30 Days Active Pantoprazole Sodium 40 MG Oral; Duration: 90 Days Active Levothyroxine Sodium 100 MCG Oral; Duration: 90 Days Active Acyclovir 400 MG Oral; Duration: 90 Days Active Flecainide Acetate 100 MG Oral; Duration: 90 Days Active Social History Sex Assigned At : Social History Observation Description Sex Assigned At Female Vital Signs Heart Rate 58 /min 08/24/2024 Blood pressure diastolic 78 mm Hg 08/24/2024 Height 65 in 09/14/2024 Blood pressure systolic 134 mm Hg 08/24/2024 Weight 132 lbs 09/14/2024 BMI 21.96 kg/m2 09/14/2024 Encounters Encounter Location Date Provider Diagnosis [facility] [address] [place] [address] 08/10/2024 QUYNH LUCIA Ingrowing nail L60.0 [facility] [address] [place] [address] 08/24/2024 QUYNH LUCIA Ingrowing nail L60.0 [facility] [address] [place] [address] 09/14/2024 QUYNH LUCIA Ingrowing nail L60.0 Assessments Encounter Date Diagnosis (ICD Code) Assessment Notes Treatment Notes Treatment Clinical Notes Section Notes 08/10/2024 Ingrowing nail (ICD-10 - L60.0) We discussed the findings and treatment options. Patient wants to proceed with surgical correction. We will contact her Wrinkle Chaser ( Jamie Escobedo) to determine his requirement [...] Date Medicare of [place] J10 [address] [place] [address] [id number] MarvinrMilvia Self - patient is the insured [...]
--- OUTSIDE RECORDS SUMMARY | 2025-06-29 17:12 | XMS_ITS | Patient Health Record ---
Author Organization [facility] Address [address] [place] [address] Care Team Providers Care Decorating Kiln Operator Name Role Phone Anil Vargas Primary Care Provider Gareth Gusman Unavailable [phone] Allergies Allergen (clinical drug ingredient) Drug/Non Drug Allergy documented on EMR Reaction Allergy Type Onset Date Status amoxicillin / clavulanate Augmentin Unknown Drug Allergy 02/12/2024 Active cephalexin Cephalexin Unknown Drug Allergy Activ e Levaquin Unknown Drug Allergy Active Reason For Referral Reason tremors Diagnosis 1 Tremor (R25.1) Referral Organization [facility] Referring Provider First Name Gareth Referring Provider Last Name Naseem Referring Provider Speciality Internal M edicine Referred Provider NEUROLOGY, ASSOCIATE S Referred Provider Specialty Neurology General Notes Dana Shepard 01/12/2025 04:34:25 PM > ref faxed. Referral Priority Routine Reason Existing patient - h ospital f/u - T12 compression fracture with chronic pain, evaluate for kyphoplasty Diagnosis 1 Compression fracture of T12 vertebra with routine healing, subsequent encounter (S22.080D) Referral Organization [facility] Referring Provider First Name Sam story Referring Provider Last Name Sam Referring Provider Speciality Internal M edicine Referred Provider Gold Condon Referred Provider Specialty Orthopedic S urgery General Notes Dana Shepard 04/22/2025 05:51:11 PM > ref faxed. Referral Priority Routine Medications Medication SIG (Take, Route, Frequency, Duration) Notes Start Date End Date Status Ipratropium-Albuterol 0.5-2.5 (3) MG/3ML 3 mL as needed Inhalation every 6 hrs; Duration: 30 days Active Calcium 1200 3882-5181 MG-UNIT 1 tablet with a meal Orally Once a day Active Flecainide Acetate 50 MG 1 tablet Orally Twice a day Active Rosuvastatin Calcium 10 MG 1 tablet Oral ly Once a day Active Mucinex 600 MG 1 tablet as needed Orally every 12 hrs Active Trelegy Ellipta 100-62.5-25 MCG/INH 1 puff Inhalation Once a day Active Eliquis 2.5 MG as directed Orally T wice a day Active Cyanocobalamin 1000 MCG 1 tablet Orally Once a day 03/05/2025 Active Acyclovir 400 MG 1 tablet Orally Twic e a day Active Sertraline HCl 50 MG 1 tablet Orally Onc e a day Active Protonix 40 MG 1 tablet Orally Once a day 06/23/2019 Active Levothyroxine Sodium 75 MCG 1 tablet on an empty stomach every morning Orally Once a day; Duration: 90 days Active Albuterol Sulfate HFA 108 (90 Base) MCG/ACT 2 puffs as needed Inhalation every 4 hrs; Duration: 90 days 01/30/2017 Active Immunizations Vaccine Route Administration Date Status Comme nts Prevnar 13 IM Intramuscular 03/11/2020 Administered Pneumococcal 20-valent Conjugate IM Intramuscular 03/12/2023 Administered Influenza, high dose seasonal IM Intramuscular 07/25/2017 Administered High dose flu vaccine 2019 IM Intramuscular 07/16/2019 Adm inistered Social History Tobacco Use: Social History Observation [...] No Points 0 Interpretation Negative Section Notes: (AWV) No Social History docu mented (AWV) No Social History docu mented (AWV) No Social History docu mented (AWV) No Social History docu mented (AWV) No Social History docu mented (AWV) No Social History docu mented (AWV) No Social History docu mented NON SMOKER NON SMOKER NON SMOKER NON SMOKER NON SMOKER NON SMOKER (AWV) No Social H istory [...] SMOKER (AWV) No Social History docu mented NON [...] W/U Status Risk Notes Problem Mixed hyperlipidemia (147300180) Mixed hyperlipidemia (E78.2) Active confirmed Problem Hypocalcemia (6034570) Hypocalcemia (E83.51) Active confirmed Problem Major depression, single episode, in complete remission (58528906) Major depressive disorder, single episode, in full remission (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) Active confirmed Problem Generalized anxiety disorder (56566725) Generalized anxiety disorder (F41.1) Active confirmed Problem Atherosclerotic heart disease of [place] coronary artery without angina pectoris (108518812468122) Atherosclerotic heart disease of [place] coronary artery without angina pectoris (I25.10) Active confirmed Problem Paroxysmal atrial fibrillation (046250390) Paroxysmal atrial fibrillation (I48.0) Active confirmed Problem Ex-tobacco user (finding) (571950542) History of tobacco use (Z87.891) Active confirmed Problem Benign essential hypertension (8967057) Benign essential hypertension (I10) Active confirmed Problem Chronic obstructive bronchitis (disorder) (424371123) 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 Problem Thyroid nodule (331935479) Thyroid nodule (E04.1) Active confirmed Problem Solitary nodule of lung (856894056) Lung nodule (R91.1) Active confirmed Problem Senile osteoporosis (90186067) Senile osteoporosis (M81.0) Active confirmed Problem Seasonal allergy (981821375) Seasonal allergies (J30.2) Active confirmed Problem Bilateral tinnitus (6042358626580) Tinnitus of both ears (H93.13) Active confirmed Problem Gastroesophageal reflux disease (292439486) GERD without esophagitis (K21.9) Active confirmed Problem Acquired hypothyroidism (768787212) Acquired hypothyroidism (E03.9) Active confirmed Problem Dysphagia (34980681) Dysphagia, unspecified type (R13.10) Active confirmed Problem COPD - Chronic obstructive pulmonary disease (20651232) Chronic obstructive pulmonary disease, unspecified COPD type (J44.9) Active confirmed Problem Venous insufficiency of leg (disorder) (342246571) Venous insufficiency (I87.2) Active confirmed Problem Peripheral vascular disease (366882080) Peripheral vascular disease (I73.9) Active confirmed Problem Rheumatoid arthritis (63689693) Rheumatoid arthritis involving both hands, unspecified rheumatoid factor presence (M06.9) Active confirmed Problem Chronic atrial fibrillation (638450400) Chronic atrial fibrillation (I48.20) Active confirmed Vital Signs Heart Rate 63 /min 04/22/2025 MG Temperature 97.8 degrees Fahrenheit 04/22/2025 MG Respiratory Rate 17 /min 04/22/2025 MG Blood pressure diastolic 56 mm Hg 04/22/2025 MG Height 66 in 04/22/2025 MG Blood pressure systolic 100 mm Hg 04/22/2025 MG Weight 123 lbs 04/22/2025 MG BMI 19.85 kg/m2 04/22/2025 MG Encounters Encounter Location Date Provider Diagnosis [facility] [address] [place] [address] 08/13/2024 Gareth Gusman Benign essential hypertension I10 [...] BMI 21.0-21.9, adult Z68.21 [facility] [address] [place] [address] 09/23/2024 Gareth Gusman Encounter for genera l adult medical examination without abnormal findings Z00.00 and Encounter for screening for other disorder Z13.89 [facility] [place] [address] [facility] [place] [address] 11/03/2024 Gareth Gusman Mixed hyperlipidemia E78.2 ; [...] BMI 21.0-21.9, adult Z68.21 [facility] [address] [place] [address] 01/12/2025 Gareth Gusman COPD (chronic obstructive pulmonary [...] BMI 20.0-20.9, adult Z68.20 [facility] [place] [address] [facility] [place] [address] 03/05/2025 Salmendoza Sam Benign essential hypertension I10 ; Paroxysmal atrial fibrillation I48.0 ; COPD exacerbation J44.1 ; B12 deficiency E53.8 ; Mixed hyperlipidemia E78.2 ; Acquired hypothyroidism E03.9 ; Risk and functional assessment Z13.9 and Body mass index (BMI) of 19.0 to 19.9 in adult Z68.1 [facility] [address] [place] [address] 04/22/2025 Anil Cuevasanan Paroxysmal atrial fibrillation I48.0 ; Hospital discharge follow-up Z09 ; Hypotension, unspecified hypotension type I95.9 ; Low TSH level R79.89 ; B12 deficiency E53.8 ; Compression fracture of T12 vertebra with routine healing, subsequent encounter S22.080D ; COPD (chronic obstructive pulmonary disease) with chronic bronchitis J44.9 ; Risk and functional assessment Z13.9 and Body mass index (BMI) of 19.0 to 19.9 in adult Z68.1 [facility] [address] [place] [id number] 08/03/2024 [facility] [address] [place] [address] 09/11/2024 [facility] [address] [place] [address] 10/19/2024 [facility] [address] [place] [address] 10/22/2024 Gareth Naseem Acquired hypothyroidism E03.9 ; Mixed hyperlipidemia E78.2 ; Depressive disorder in remission F32.A and Benign essential hypertension I10 [facility] [address] [place] [address] 01/12/2025 [facility] [address] [place] [address] 02/08/2025 Gareth Naseem Acquired hypothyroidism E03.9 [facility] [place] [address] [place] [id number] 03/01/2025 Gareth Gusman [facility] [address] [place] [address] 03/01/2025 Gareth Gusman [facility] [address] [place] [address] 03/05/2025 Anil Vargas Senile osteoporosis M81.0 Internal [facility] [address] [place] [address] 04/12/2025 Gareth Gusman Acquired hypothyroidism E03.9 [facility] [address] [place] [address] 04/14/2025 Anil Vargas [facility] [address] [place] [address] 04/19/2025 Anil Vargas [facility] [place] [address] [place] [address] 05/13/2025 Anil Vargas [facility] [address] [place] [address] 05/17/2025 Anil Vargas Low TSH level R79.89 [place] [address] [place] [address] 06/18/2025 Anil Vargas Assessments Encounter Date Diagnosis (ICD Code) Assessment [...] with high risk for stroke based on [id number] score. 08/13/2024 Benign essential hypertension (ICD-10 - [...] screening for other disorder (ICD-10 - Z13.89) 10/22/2024 Acquired hypothyroidism (ICD-10 - E03.9) 11/03/2024 Mixed hyperlipidemia (ICD-10 - E78.2) You [...] regularly. Monitor blood pressure at home. 01/12/2025 Benign essential hypertension (ICD-10 - I10) 2 g sodium diet suggested. Goal blood pressure 120/80. Avoid hypotension. Complications of uncontrolled hypertension discussed with patient to include CKD, CVA, CAD. Advised to take medications regularly. Monitor blood pressure at home. 01/12/2025 COPD (chronic obstructive pulmonary disease) with chronic bronchitis (ICD-10 - J44.9) Well-controll ed. Stable. Continue with current management. 02/08/2025 Acquired hypothyroidism (ICD-10 - E03.9) 03/05/2025 Paroxysmal atrial fibrillation (ICD-10 - I48.0) 03/05/2025 Benign essential hypertension (ICD-10 - I10) 03/05/2025 Senile osteoporosis (ICD-10 - M81.0) 04/12/2025 Acquired hypothyroidism (ICD-10 - E03.9) 04/22/2025 Paroxysmal atrial fibrillation (ICD-10 - I48.0) Follow-up with Dr. Goodrich about potential pacemaker and whether to continue flecainide. If you are seeing heart rates in the 40s, hold flecainide. Dose reduced Eliquis due to age and weight 04/22/2025 Hospital discharge follow-up (ICD-10 - Z09) hosp course reviewed and meds reconciled 05/17/2025 Low TSH level (ICD-10 - R79.89) 04/22/2025 Hypotension, unspecified hypotension type (ICD-10 - I95.9) Stop telmisartan due to low blood pressures 03/05/2025 COPD exacerbation (ICD-10 - J44.1) 01/12/2025 Paroxysmal atrial fibrillation (ICD-10 - I48.0) [...] with high risk for stroke based on [id number] score. 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 03/05/2025 B12 deficiency (ICD-10 - E53.8) Start B12 supplement 1,000 mcg daily. 04/22/2025 Low TSH level (ICD-10 - R79.89) We will re-check TSH in 4 weeks to see if we need to adjust thyroid medication 04/22/2025 B12 deficiency (ICD-10 - E53.8) 03/05/2025 Mixed hyperlipidemia (ICD-10 - E78.2) 01/12/2025 Tremor (ICD-10 - R25.1) 11/03/2024 Other chest pain (ICD-10 - R07.89) 08/13/2024 Chronic obstructive pulmonary disease, unspecified COPD type (ICD-10 - J44.9) 10/22/2024 Benign essential hypertension (ICD-10 - I10) 08/13/2024 Mixed hyperlipidemia (ICD-10 - E78.2) You [...] J44.9) Well-controlled. Stable. Continue with current management. 03/05/2025 Acquired hypothyroidism (ICD-10 - E03.9) 04/22/2025 Compression fracture of T12 vertebra with routine healing, subsequent encounter (ICD-10 - S22.080D) Follow-up with Dr. 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 Stable. Continue with current management. 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 Continue with calcium and vitamin D supplementation. 01/12/2025 Acquired hypothyroidism (ICD-10 - E03.9) Well-controlled. Stable. Continue with current management. 11/03/2024 Acquired hypothyroidism (ICD-10 - E03.9) 03/05/2025 Body mass index (BMI) of 19.0 to 19.9 in adult (ICD-10 - Z68.1) 04/22/2025 Risk and functional assessment (ICD-10 - Z13.9) 04/22/2025 Body mass index (BMI) of 19.0 to 19.9 in adult (ICD-10 - Z68.1) 01/12/2025 Depressive disorder in remission (ICD-10 - F32.A) No SI or HI symptoms. If you ever feel like you might hurt yourself or someone else helps available. In the [place] contact [employer] suicide and crisis [employer]. To speak to someone call or text [employer]. To talk to someone online go to [email or web address] rg/chat. Call us urgently. Or call an [...] 01/12/2025 BMI 20.0-20.9, adult (ICD-10 - Z68.20) 08/13/2024 Other Diet myths and facts material was printed 11/03/2024 Other Diet myths and facts material was printed 01/12/2025 Other Diet myths and facts material was printed 03/05/2025 Other Diet myths and facts material was printed 04/22/2025 Other Diet myths and facts material was printed Plan Of Treatment Pending Test Test Name Order Date X ray : Spines, cervical 07/03/2022 X ray : Shoulder, left 02/20/2018 X ray : Rib series, left 01/26/2019 X ray : Thoracic spine 2 views VINCENT 01/01/2019 Chest X-ray PA and lateral 01/01/2019 Chest X-ray PA and lateral 10/22/2018 Chest X-ray PA and lateral 01/30/2017 Chest X-ray PA and lateral 12/18/2021 Chest X-ray PA and lateral 03/17/2021 Chest X-ray PA and lateral 03/12/2022 Chest X-ray PA and lateral 07/05/2021 Chest X-ray PA and lateral 02/18/2020 Chest X-ray PA and lateral 10/09/2019 Chest X-ray PA and lateral 06/29/2019 Chest X-ray PA and lateral 05/22/2019 Chest X-ray PA and lateral 08/24/2022 Chest X-ray PA and lateral 11/03/2024 Electrocardiogram (EKG) 11/14/2017 Stool Culture 08/03/2022 Lyme IgG/IgM Ab 10/24/2016 D-Dimer 02/08/2017 D-Dimer 08/26/2019 D-Dimer 03/12/2022 Troponin I 08/26/2019 Troponin I 03/12/2022 Troponin I 08/24/2022 ABDELRAHMAN w/Reflex 10/24/2016 Stool-C [...] ULTRASOUND 03/11/2020 THYROID ULTRASOUND 10/24/2017 LIPID PANEL 07/14/2020 LIPID PANEL 12/22/2018 LIPID PANEL 04/07/2021 LIPID PANEL 07/28/2018 LIPID PANEL 01/23/2018 LIPID PANEL 07/25/2017 COMPREHENSIVE METABOLIC PANEL 07/25/2017 COMPREHENSIVE METABOLIC PANEL 01/23/2018 COMPREHENSIVE METABOLIC PANEL 07/28/2018 COMPREHENSIVE METABOLIC PANEL 04/07/2021 COMPREHENSIVE METABOLIC PANEL 12/22/2018 COMPREHENSIVE METABOLIC PANEL 09/19/2022 COMPREHENSIVE METABOLIC PANEL 07/14/2020 COMPREHENSIVE METABOLIC PANEL 03/12/2022 COMPREHENSIVE METABOLIC PANEL 02/18/2020 BASIC METABOLIC PANEL 12/10/2019 BASIC METABOLIC PANEL 08/26/2019 BASIC METABOLIC PANEL 05/09/2022 BASIC METABOLIC PANEL 10/24/2016 CBC (INCLUDES DIFF/PLT) 10/24/2016 CBC (INCLUDES DIFF/PLT) 07/25/2017 CBC (INCLUDES DIFF/PLT) 02/08/2017 CBC (INCLUDES DIFF/PLT) 04/03/2019 CBC (INCLUDES DIFF/PLT) 01/23/2018 CBC (INCLUDES DIFF/PLT) 07/28/2018 CBC (INCLUDES DIFF/PLT) 12/17/2018 CBC (INCLUDES DIFF/PLT) 11/27/2017 CBC (INCLUDES DIFF/PLT) 09/19/2022 CBC (INCLUDES DIFF/PLT) 04/07/2021 CBC (INCLUDES DIFF/PLT) 12/22/2018 CBC (INCLUDES DIFF/PLT) 08/26/2019 CBC (INCLUDES DIFF/PLT) 02/18/2020 CBC (INCLUDES DIFF/PLT) 12/10/2019 CBC (INCLUDES DIFF/PLT) 03/12/2022 CBC (INCLUDES DIFF/PLT) 07/14/2020 URINALYSIS, COMPLETE 12/02/2017 URINALYSIS, COMPLETE 06/26/2017 C-REACTIVE PROTEIN 10/24/2016 VITAMIN B12 09/19/2022 TSH 09/19/2022 TSH 12/22/2018 TSH 04/07/2021 TSH 07/14/2020 TSH 03/12/2022 TSH 12/10/2019 TSH 07/25/2017 Vitamin d hydroxy 25 09/19/2022 CT Chest without Contrast 01/07/2020 CT Chest without Contrast 04/03/2019 STOOL HEMOCULT 08/03/2022 FLU SWAB 02/18/[address] chest for lung cancer screen ing - W/O 10/02/2016 stool for c diff 10/24/2016 bnp 02/08/2017 bnp 03/12/2022 CT CHEST - LOW DOSE 12/05/2018 CT CHEST FOR CANCER SCREENING LOW DOSE W ITHOUT CONTRAST 10/16/2017 ct abd and pelvis wo contrast 01/26/2019 stool for wbc 08/03/2022 CT HEAD W/O CONTRAST 07/03/2022 DEXA SCAN 04/27/2019 DEXA SCAN 10/01/2023 nebulizer machine and tubing 04/03/2019 mri left [...] 10/28/2023 Next Appt Details Provider Name:Anil Vargas, 09/06/2025 02:00:00 PM, [address] [place], [address], Insurance Providers Payer Name Payer Address Payer Phone Subscriber Number Group Number Insured Name Patient Relationship to Insured Coverage Start Date Coverage End Date MEDICARE [address] [place] [id number] Marvinr, Milvia Self - patient is the insured [address] [place] [address] [id number] Eyer Milvia Self - patient is the insured Medications [...]
--- OUTSIDE RECORDS SUMMARY | 2025-06-29 17:12 | XMS_ITS | Patient Health Record ---
Author Organization [facility] - Address [address] [place] [address] Care Team Providers Care Hide Puller Name Role Phone Gareth Gusman Primary Care Provider LUCA Butler Unavailable [phone] Allergies Allergen (clinical drug ingredient) Drug/Non Drug [...] every 12 hrs Active Telmisartan 20 MG 1 tablets Orally Onc e a day Active Rosuvastatin Calcium 10 MG 1 tablet Oral ly Once a day Active Flecainide Acetate 100 MG 1 tablet Orall y every 12 hrs; Duration: 30 days Active Eliquis 5 MG 1 tablet Orally Twic e a day; Duration: 90 days Active Zoloft 25 MG 1 tablet Orally Once a day Active Levothyroxine Sodium 100 MCG 1 tablet in the morning on an empty stomach Orally Once a day Active Trelegy Ellipta Acti ve Protonix 40 MG 1 tablet Orally Once a day Active Social History Tobacco Use: [...] Status W/U Status Risk Notes Problem Hypothyroidism (68189851) Hypothyroidism, unspecified (E03.9) Active confirmed Problem Mixed hyperlipidemia (957704567) Mixed hyperlipidemia (E78.2) Active confirmed Problem Paroxysmal atrial fibrillation (866338484) Paroxysmal atrial fibrillation (I48.0) Active confirmed Problem Atrial fibrillation (65304395) Unspecified atrial fibrillation (I48.91) Active confirmed Problem Palpitations (28726652) Palpitations (R00.2) Active confirmed Problem Hyperlipidemia (88621049) Other hyperlipidemia (E78.49) Active confirmed Problem Dyspnea (092807025) SOB (shortness of breath) (R06.02) Active confirmed Problem Atrial fibrillation (29992024) Paroxysmal A-fib (I48.0) Active confirmed Problem Primary hypertension (11620036) Primary hypertension (I10) Active confirmed Problem Skin sensation disturbance (17124129) Left leg numbness (R20.0) Active confirmed Vital Signs Heart Rate 67 /min 04/21/2025 Blood pressure diastolic 48 mm Hg 04/21/2025 Height 65 in 04/21/2025 Blood pressure systolic 92 mm Hg 04/21/2025 Weight 124.8 lbs 04/21/2025 BMI 20.77 kg/m2 04/21/2025 Encounters Encounter Location Date Provider Diagnosis [facility] - [address] [facility] [address] [place] [address] 10/07/2024 LUCA FERNÁNDEZ Primary hypertension I10 ; Other hyperlipidemia E78.49 ; Palpitations R00.2 ; SOB (shortness of breath) R06.02 ; Paroxysmal A-fib I48.0 ; BMI 21.0-21.9, adult Z68.21 ; Leg edema R60.0 ; Precordial pain R07.2 and Pre-op evaluation Z01.818 [facility] [place] [address] [facility] [address] [place] [address] 04/21/2025 LUCA FERNÁNDEZ Primary hypertension I10 ; Other hyperlipidemia E78.49 ; Palpitations R00.2 ; SOB (shortness of breath) R06.02 ; Paroxysmal A-fib I48.0 ; BMI 21.0-21.9, adult Z68.21 ; Leg edema R60.0 and Precordial chest pain R07.2 [facility] [place] [address] [place] [address] 08/04/2024 LUCA FERNÁNDEZ Unspecified atrial fibrillation I48.91 [facility] [place] [address] [place] [address] 10/22/2024 LUCA FERNÁNDEZ Unspecified atrial fibrillation I48.91 [facility] - [place] [address] [place] [address] 10/29/2024 LUCA FERNÁNDEZ [facility] [place] [address] [place] [address] 01/06/2025 LUCA FERNÁNDEZ Unspecified atrial fibrillation I48.91 [facility] [place] [address] [place] [address] 01/12/2025 LUCA FERNÁNDEZ Unspecified atrial fibrillation I48.91 [facility] [place] [address] [place] [address] 04/12/2025 LUCA FERNÁNDEZ [facility] [place] [address] [place] [address] 04/14/2025 LUCA LOOUGH [facility] [place] [address] [place] [address] 05/05/2025 LUCA FERNÁNDEZ [facility] [place] [address] [place] [address] 05/19/2025 LUCA FERNÁNDEZ Unspecified atrial fibrillation I48.91 [facility] [place] [address] [place] [address] 05/19/2025 LUCA FERNÁNDEZ Assessments Encounter Date Diagnosis (ICD Code) Assessment Notes Treatment Notes Treatment Clinical Notes Section Notes 08/04/2024 Unspecified atrial fibrillation (ICD-10 - I48.91) 10/07/2024 Primary hypertension (ICD-10 - I10) 10/22/2024 Unspecified atrial fibrillation (ICD-10 - I48.91) 01/06/2025 Unspecified atrial fibrillation (ICD-10 - I48.91) 01/12/2025 Unspecified atrial fibrillation (ICD-10 - I48.91) 04/21/2025 Primary hypertension (ICD-10 - I10) BP low today. She will take her BP in the morning before taking her ARB 05/19/2025 Unspecified atrial fibrillation (ICD-10 - I48.91) 04/21/2025 Other hyperlipidemia (ICD-10 - E78.49) 10/07/2024 Other hyperlipidemia (ICD-10 - E78.49) 10/07/2024 Palpitations (ICD-10 - R00.2) Loop in place. No afib. 04/21/2025 Palpitations (ICD-10 - R00.2) 04/21/2025 SOB (shortness of breath) (ICD-10 - R06.02) 10/07/2024 SOB (shortness of breath) (ICD-10 - R06.02) 10/07/2024 Paroxysmal A-fib (ICD-10 - I48.0) Cont flecainide and eliquis. In NSR today. 04/21/2025 Paroxysmal A-fib (ICD-10 - I48.0) Cont flecainide and eliquis. In NSR today. 04/21/2025 BMI 21.0-21.9, adult (ICD-10 - Z68.21) 10/07/2024 BMI 21.0-21.9, adult (ICD-10 - Z68.21) 10/07/2024 Leg edema (ICD-10 - R60.0) 04/21/2025 Leg edema (ICD-10 - R60.0) 04/21/2025 Precordial chest pain (ICD-10 - R07.2) Negative cath 10/07/2024 Precordial pain (ICD-10 - R07.2) 10/07/2024 Pre-op evaluation (ICD-10 - Z01.818) Low risk for colonoscopy. 10/07/2024 Other Negative cath Plan Of Treatment Next Appt Details Provider Name:LUCA BELLEGIN [facility], 08/25/2025 02:45:00 PM, [address], [place], [address], Insurance Providers Payer Name Payer Address Payer Phone Subscriber Number Group Number Insured Name Patient Relationship to Insured Coverage Start Date Coverage End Date Medicare of [place] J [address] [place] [address] [id number] EyerMilvia Self - patient is the insured [employer] nicole [place] [address] [place] [id number] EyeMilvia story Self - patient is the insured Medical [...] LUNG, LEFT cataract removal hysterectomy LOOP RECORDER [employer] 10/2021 tonsillectomy and adenoidectomy colonoscopy hemorrhoidectomy face lift neck lift
--- OUTSIDE RECORDS SUMMARY | 2025-06-29 17:13 | XMS_ITS | Patient Health Record ---
Author Organization [facility] Address [address] [place] [address] Care Team Providers Care Janitor Supervisor Name Role Phone Gareth Gusman MD Primary Care Provider Unavaila Nathaniel Pennington Unavailable [phone] Yakov Del Real, Tonie Unavailable Unavailable Migration, Provider Unavailable Unavailable Reason For Referral No Information Medications Medication SIG (Take, Route, Frequency, Duration) Notes Start Date End Date Status Lidocaine 5 % Cream External Add'l Sig *Pick strength-form from [facility] for eRX* Active Eliquis 5 MG Tablet Oral BID Active Vitamin C 500 mg Tablet Oral Add'l Sig Active ProAir HFA 108 (90 Base) MCG/ACT Aerosol Solution Inhalation Add'l Sig *Reorder from [facility] for [facility] and Interaction Alerts* Active Sertraline HCl 25 MG Tablet Oral Add'l Sig Active Telmisartan 20 mg Tablet Oral Add'l Sig Active Tylenol Extra Strength 500 MG Tablet Oral Q4h Active zinc sulfate 50 mg zinc (220 mg) tablet 1 tab by mouth Add'l Sig *Reorder from [facility] for [facility] and Interaction Alerts* Active Valium 5 MG Tablet Take 1 po 1h prior to MRI, then 1 po 1/2h prior to MRI Oral as directed 07/31/2023 Active Medrol 4 MG Tablet Therapy Pack Oral as directed 11/22/2022 Active Flecainide Acetate 100 mg Tablet Oral Add'l Sig Active Acetaminophen-Codeine #3 300-30 MG Tablet prn pain Oral Q6h *Reorder from [facility] for [facility] and Interaction Alerts* 11/22/2022 Active Vitamin D3 50 mcg (2,000 unit) capsule 1 cap by mouth Add'l Sig *[facility]* Active Protonix 40 mg Tab 1 TbEC by mouth Add'l Sig *Reorder from [facility] for [facility]Rx and Interaction Alerts* Active Voltaren 1% Gel Apply 2-4gm topically to affected site four times a day Transdermal as directed The medication was removed during an external session by Sanjuanita Lam on 04/05/2017 3:00:57 PM 07/12/2016 Active Calcium 600 + D(3) 600 mg-10 mcg (400 unit) tablet 1 tab by mouth Add'l Sig *[facility]* Active Montelukast Sodium 10 MG Tablet Oral QHS Active Acyclovir 400 MG Tablet Oral BID Active Albuterol Sulfate (2.5 MG/3ML) 0.083% Nebulization Solution Inhalation Add'l Sig Active Rosuvastatin Calcium 10 MG Tablet Oral Add'l Sig Active Trelegy Ellipta 100-62.5-25 mcg Aerosol Powder Breath Activated Inhalation Add'l Sig *Pick strength-form from [facility]* Active Aspercreme (lidocaine HCl) 4 % topical 1 crea as directed Add'l Sig *Reorder from [facility] for [facility] and Interaction Alerts* Active Levothyroxine Sodium 100 MCG Tablet Oral Add'l Sig Active Biofreeze 4 % Gel External Add'l Sig *Pick strength-form from [facility]* Active Cyclobenzaprine HCl 10 MG Tablet Oral BID Active Problems Problem Type SNOMED Code ICD Code Onset Dates Problem Status W/U Status Risk Notes Problem Thyrotoxicosis without goiter or other cause (disorder) (44260517) Thyrotoxicosis without mention of goiter or other cause (242.9) 2014 Active confirmed Problem Pure hypercholesterolemia (542917788) Pure hypercholesterolemia (272.0) 2018 Active confirmed Problem Essential hypertension (60866462) Unspecified essential hypertension (401.9) 2022 Active confirmed Problem Atrial fibrillation (86012711) Atrial fibrillation (427.31) 2022 Active confirmed Problem Chronic airway obstruction (40507489) Chronic airway obstruction, not elsewhere classified (496) 2019 Active confirmed Problem Disorder of function of stomach (069368518) Dyspepsia and other specified disorders of function of stomach (536.8) 2014 Active confirmed Problem Disorder of joint of ankle and/or foot (763857247) Unspecified arthropathy, ankle and foot (716.97) 2022 Active confirmed Encounters Encounter Location Date Provider Diagnosis [facility] [address] [place] [address] [address] [place] [address] 05/15/2025 Provider Migration [facility] [address] [place] [address] [address] [place] [address] 05/16/2025 Provider Migration Plan Of Treatment No Information Insurance Providers Payer Name Payer Address Payer Phone Subscriber Number Group Number Insured Name Patient Relationship to Insured Coverage Start Date Coverage End Date Medicare Part B Attn JJ Medicare Part B [address] [place] [address] [id number] EyerMilvia Self - patient is the insured [address] [place] [address] [place] [address] [phone] [id number] EyerMilvia Self - patient is the insured
--- OUTSIDE RECORDS SUMMARY | 2025-06-29 17:13 | XMS_ITS | Patient Health Record ---
Author Organization [facility] Address [address] [facility] [place] [address] Support Name Relationship Address Phone Milvia Grijalva Guarantor Unknown [phone] Reason For Referral No Information Medications Medication SIG (Take, Route, Frequency, Duration) Notes Start Date End Date Status Levaquin 500 MG Oral Tablet 500 mg *please review for potential update for e-prescription and drug interaction check* 04/26/2014 Active Dymista (azelastine-flutica sone nasal) nasal spray 137 mcg-50 mcg/inh *please review for potential update for e-prescription and drug interaction check* 04/16/2013 Active Plan Of Treatment No Information
--- OUTSIDE RECORDS SUMMARY | 2025-06-29 17:13 | XMS_ITS | Patient Health Record ---
Author Organization [facility] Address [address] [place], [place] [id number] Care Team Providers Care Fowl Blood Tester Name Role Phone Laura Reyes Unavailable [phone] Candis Reyes Md Unavailable Unavailable Reason For Referral No Information Plan Of Treatment No Information
== END 2025-06-29 17:06 | disposition home or self-care (01) ==
PROVIDERS: Emergency Provider Nurse Practitioner
DX: H10.9 Unspecified conjunctivitis (principal); I48.91 Unspecified atrial fibrillation; E03.9 Hypothyroidism, unspecified; E78.5 Hyperlipidemia, unspecified; J44.9 Chronic obstructive pulmonary disease, unspecified; K21.9 Gastro-esophageal reflux disease without esophagitis; Z79.01 Long term (current) use of anticoagulants
CPT/HCPCS: 99213; G0463